=== PATIENT | female | born 1955 | race Caucasian/White ===

== ENCOUNTER 2017-07-29 20:44 | Emergency (ER) | payer MEDICARE, MEDICAID ==
[~2017-07-29 20:44] MED LIST: ISOVUE-370 76%-LOCM 1 ML ONE
[2017-07-29 21:49] LABS: #Basophils 0.1 thou/uL (0.0-0.2); #Eosinphils 0.2 thou/uL (0.0-0.7); #Lymphocytes 1.8 thou/uL (1.20-3.40); #Monocytes 0.6 thou/uL (0.11-0.59); #Neutrophils 3.1 thou/uL (1.40-6.50); %Basophils 0.9 % (0.0-1.0); %Eosinophils 2.9 % (0.0-10.0); %Lymphocytes 31.4 % (21.0-51.0); %Monocytes 10.5 % (0.0-10.0); Mean Platelet Volume 6.9 fL (7.4-10.4); Red Blood Cell (RBC) Count 3.39 mill/uL (4.20-5.40); White Blood Cell (WBC) Count 5.8 thou/uL (4.8-10.8)
[2017-07-29 22:04] LABS: ALT (SGPT) 22 U/L (8-55); AST (SGOT) 22 U/L (5-34); Alkaline Phosphatase 61 U/L (40-150); Anion Gap 12 mmol/L (10-20); BUN (Urea Nitrogen) 16 mg/dL (9.8-20.1); Bilirubin, Total 0.3 mg/dL (0.2-1.2); Calc. Creatinine Clearance 0 mL/min (70-130); Calcium 9.3 mg/dL (7.8-10.44); Carbon Dioxide 26 mmol/L (22-29); Chloride 107 mmol/L (98-107); Estimated GFR-MDRD 55; Globulin 2.6 g/dL (2.4-3.5); Lipase 417 U/L (8-78); Protein, Total 6.7 g/dL (6.0-8.3)
[2017-07-29 22:08] LABS: Bilirubin Negative (Negative); Blood, Urine Negative (Negative); Glucose, Urine (Dipstick) Negative (Negative); Ketone, Urine Negative (Negative); Nitrite Negative (Negative); Protein, Urine (Dipstick) Negative (Neg-Trace); Urobilinogen 0.2 mg/dL (0.2-1.0)
[2017-07-29 22:08] LABS: Troponin I Less than 0.010 ng/mL (< 0.028)
[2017-07-29] MEDS ORDERED: Morphine 4 MG/ML VIAL ONE (22:35)
[2017-07-29] MEDS ORDERED: Ondansetron HCl/PF 4 MG/2 ML Vial ONE (22:35)
--- NOTE | 2017-07-29 23:45 | CT ---
EXAM: ABDOMEN CT WITH CONTRAST PELVIC CT WITH CONTRAST 07/29/17 HISTORY: Epigastric pain. Abdominal pain. Four days of pain. Past medial history of pancreatitis. COMPARISON: 05/07/14. TECHNIQUE: An abdomen and pelvic CT are performed with IV contrast. Enteric contrast was not administered. Coron al reformatted images are submitted for interpretation. FINDINGS: ABDOMEN CT: Lung bases are clear. Heart size is within normal limits. Descending thoracic aorta and abdominal aor ta have a normal caliber. Atherosclerosis is noted. No periaortic fat stranding. Intra and extrahepatic portal vein is patent. Liver, spleen, pancreas, and adrenal glands have appropriate enhancement. Gallbladder is surgically absent. Symmetric enhancement of the kidneys. Bilaterally, no obstructive uropathy. Symmetric attenuation of the psoas muscles. No gastrohepatic, retrocrural or periportal lymphadenopathy. No mesenteric mass, lymphadenopathy, free air or free fluid. Limited evaluation of the alimentary canal due to the lack of oral contrast. No evidence of bowel obs truction. Ileocecal junction is normal. Fecal material in a nondistended, nondilated colon. Normal ca liber appendix. Appendicoliths in the distal appendix are noted. No inflammation. PELVIC CT: Uterus is surgically absent. No pelvic mass, lymphadenopathy, free air or free fluid. There are no lytic or blastic lesions in the osseous structures. IMPRESSION: 1. No acute abnormality in the abdomen or pelvis. 2. No CT evidence of pancreatitis. Correlate with laboratory values. POS: [facility]
[2017-07-29] MEDS ORDERED: Mag-Al 1200 mg/1200 mg/30 ML UDCUP ONE (23:56)
[2017-07-29] MEDS ORDERED: Lidocaine Viscous Sol 2% 15 ml UD Cup ONE (23:56)
--- NOTE | 2017-08-22 13:26 | EKG ---
Test Reason : Blood Pressure : / mmHG Vent. Rate : 059 BPM Atrial Rate : 059 BPM P-R Int : 146 ms QRS Dur : 098 ms QT Int : 438 ms P-R-T Axes : 035 -08 012 degrees QTc Int : 433 ms Sinus bradycardia Possible Left atrial enlargement Incomplete right bundle branch block Left ventricular hypertrophy Abnormal ECG Confirmed by SRIRAM VAZQUEZ ([id number]), editor newspaper LUTHER SPRAGUE ([id number]) on 08/22/2017 1:26:17 PM Referred By: Confirmed By:SRIRAM VAZQUEZ
== END 2017-07-30 00:31 | disposition home or self-care (01) ==
LOC: ERS 20:44
DX: R10.13 Epigastric pain (principal); E03.9 Hypothyroidism, unspecified; E78.5 Hyperlipidemia, unspecified; G47.30 Sleep apnea, unspecified; J44.9 Chronic obstructive pulmonary disease, unspecified; F41.9 Anxiety disorder, unspecified; F31.9 Bipolar disorder, unspecified; Z87.891 Personal history of nicotine dependence
CPT/HCPCS: 74177; 80053; 80178; 81003; 82553; 83690; 84484; 85025; 93005; 96374; 96375; J2270; J2405

== ENCOUNTER 2017-08-28 18:41 | Emergency (ER) | payer MEDICARE, MEDICAID ==
[2017-08-28 19:08] LABS: #Eosinphils 0.2 thou/uL (0.0-0.7); #Lymphocytes 2.3 thou/uL (1.20-3.40); #Monocytes 0.7 thou/uL (0.11-0.59); #Neutrophils 4.6 thou/uL (1.40-6.50); %Basophils 0.5 % (0.0-1.0); %Eosinophils 2.1 % (0.0-10.0); %Lymphocytes 29.5 % (21.0-51.0); %Monocytes 8.4 % (0.0-10.0); %Neutrophils 59.5 % (42.0-75.0); Mean Corpuscular HGB CONC 34.2 g/dL (32.0-36.0); Mean Corpuscular Hemoglobin 35.7 pg (27.0-31.0); Platelet Count 324 thou/uL (130-400); RBC Distribution Width 9.8 % (11.5-14.5); Red Blood Cell (RBC) Count 3.64 mill/uL (4.20-5.40); White Blood Cell (WBC) Count 7.8 thou/uL (4.8-10.8)
[2017-08-28 19:31] LABS: ALT (SGPT) 22 U/L (8-55); AST (SGOT) 19 U/L (5-34); Alkaline Phosphatase 61 U/L (40-150); Anion Gap 14 mmol/L (10-20); BUN (Urea Nitrogen) 27 mg/dL (9.8-20.1); Bilirubin, Total 0.4 mg/dL (0.2-1.2); Calc. Creatinine Clearance 0 mL/min (70-130); Carbon Dioxide 27 mmol/L (22-29); Chloride 102 mmol/L (98-107); Estimated GFR-MDRD 34; Glucose 111 mg/dL (70-105); Potassium 4.2 mmol/L (3.5-5.1); Sodium 139 mmol/L (136-145)
--- NOTE | 2017-08-28 23:04 | RAD ---
CHEST ONE VIEW 08/28/17 HISTORY: Cough. Dizziness. COMPARISON: 05/25/26. FINDINGS: Normal cardiac silhouette. Pulmonary vessels and hilum are normal. Costophrenic angles are clear. Mil d hyperinflation, without consolidation or mass. No pneumothorax or osseous abnormalities. IMPRESSION: No acute cardiopulmonary process. POS: [facility]
[2017-08-28 23:12] LABS: CKMB 3.4 ng/mL (0-6.6); Troponin I Less than 0.010 ng/mL (< 0.028)
[2017-08-28 23:17] LABS: Bilirubin Negative (Negative); Blood, Urine Negative (Negative); Clarity CLOUDY (Clear); Glucose, Urine (Dipstick) Negative (Negative); Leukocyte Small (Negative); Nitrite Negative (Negative); Protein, Urine (Dipstick) Negative (Neg-Trace); Specific Gravity, Urine 1.015 (1.002-1.036); Urobilinogen 0.2 mg/dL (0.2-1.0); pH, Urine 5.5 (5.0-9.0)
[2017-08-28 23:19] LABS: Pathc Cast-AUWi Flag 0.67 (0-2.49)
--- NOTE | 2017-08-28 23:20 | CT ---
EXAM: NONCONTRAST HEAD CT 08/28/17 HISTORY: Dizziness. Possible stroke. COMPARISON: 01/22/17. TECHNIQUE: Noncontrast head CT is performed from skull base to skull vertex. FINDINGS: No parenchymal hemorrhage. No extra-axial hematoma. No midline shift. Basilar cisterns are patent. Ag e appropriate brain volume. Cortical holldiay-white matter differentiation is preserved. The ventricles and sulci are patent and symmetric. The calvarium is intact. Adequate aeration of the mastoid air cells. There is right and left maxillary sinus disease. IMPRESSION: No acute intracranial process. POS: [facility]
[2017-08-28 23:24] LABS: Bacteria/HPF 2+ HPF (None Seen); Hyaline Casts/LPF 0-3 HYALINE CAST LPF (0-3 Hyaline); RBC/HPF 0-3 HPF (0-3); Yeast-All Forms None Seen HPF (None Seen)
[2017-08-28] MEDS ORDERED: Meclizine HCl 25 MG TAB ONE (23:53)
--- NOTE | 2017-08-30 15:26 | EKG ---
Test Reason : Blood Pressure : / mmHG Vent. Rate : 076 BPM Atrial Rate : 076 BPM P-R Int : 150 ms QRS Dur : 094 ms QT Int : 390 ms P-R-T Axes : 076 010 065 degrees QTc Int : 438 ms Normal sinus rhythm Possible Left atrial enlargement Incomplete right bundle branch block Borderline ECG Confirmed by NANCI MAYA M.D. ([id number]), business editor MEDARDO VAZQUEZ ([id number]) on 08/30/2017 3:25:55 PM Referred By: Confirmed By:NANCI MAYA M.D.
== END 2017-08-29 00:40 | disposition home or self-care (01) ==
LOC: ERS 18:41
DX: R42 Dizziness and giddiness (principal); J44.9 Chronic obstructive pulmonary disease, unspecified; E03.9 Hypothyroidism, unspecified; E78.5 Hyperlipidemia, unspecified; G47.30 Sleep apnea, unspecified; F41.9 Anxiety disorder, unspecified; F31.9 Bipolar disorder, unspecified; Z87.891 Personal history of nicotine dependence; Z79.899 Other long term (current) drug therapy; Z86.73 Personal history of transient ischemic attack (TIA), and cerebral infarction without residual deficits
CPT/HCPCS: 36415; 70450; 71045; 80053; 81003; 81015; 82553; 84484; 85025; 93005

== ENCOUNTER 2017-10-25 06:37 | Emergency (ER) | payer MEDICARE, MEDICAID | END 2017-10-25 08:08 | disposition home or self-care (01) | LOC: ERS 06:37 | DX: H10.45 Other chronic allergic conjunctivitis (principal); G89.29 Other chronic pain; M25.561 Pain in right knee; E03.9 Hypothyroidism, unspecified; E78.5 Hyperlipidemia, unspecified; G47.30 Sleep apnea, unspecified; J44.9 Chronic obstructive pulmonary disease, unspecified; F41.9 Anxiety disorder, unspecified; F31.9 Bipolar disorder, unspecified; Z87.891 Personal history of nicotine dependence; Z79.1 Long term (current) use of non-steroidal anti-inflammatories (NSAID); Z79.899 Other long term (current) drug therapy; Z86.73 Personal history of transient ischemic attack (TIA), and cerebral infarction without residual deficits | CPT/HCPCS: 99282 ==

== ENCOUNTER 2017-11-17 11:46 | Outpatient (CLI) | payer MEDICARE, MEDICAID ==
--- NOTE | 2017-11-17 15:27 | MRI ---
MRI OF THE RIGHT KNEE WITHOUT CONTRAST: Date: 11/17/17 INDICATION: Pain within the right knee for 3 months without history of injury or surgery. FINDINGS: There is an area of subchondral increased T2 and diminished T1 signal involving the patella at the le jose g of the inferior median patellar ridge without evidence of a definite full thickness cartilage def ect. There is very small central free edge radial tear involving the posterior junction of the medial meni scus on image 15 of series 7, and image 15 of series 4. The lateral meniscus appears intact. The ACL, PCL, MCL, and LCLC appear intact. The extensor mechanism appears intact. IMPRESSION: 1. Area of subchondral edema involving the lower aspect of the patella just subjacent to the articul ar cartilage. No visible articular fissure is noted within this region. This could reflect an area of subchondral contusion. 2. Central free edge radial tear involving the posterior junction of the medial meniscus. POS: [facility]
== END 2017-11-17 11:47 | disposition home or self-care (01) ==
LOC: MRI 11:46
PROVIDERS: ATTEND Orthopaedic Surgery
DX: M25.561 Pain in right knee (principal); R60.0 Localized edema; S83.241A Other tear of medial meniscus, current injury, right knee, initial encounter

== ENCOUNTER 2018-01-16 13:39 | Emergency (ER) | payer MEDICARE, MEDICAID ==
[2018-01-16 14:25] LABS: #Eosinphils 0.1 thou/uL (0.0-0.7); #Lymphocytes 1.9 thou/uL (1.20-3.40); #Monocytes 0.7 thou/uL (0.11-0.59); #Neutrophils 4.9 thou/uL (1.40-6.50); %Basophils 0.5 % (0.0-1.0); %Eosinophils 1.9 % (0.0-10.0); %Lymphocytes 25.1 % (21.0-51.0); %Monocytes 8.8 % (0.0-10.0); %Neutrophils 63.7 % (42.0-75.0); Hemoglobin 11.8 g/dL (12.0-16.0); Mean Corpuscular Hemoglobin 35.5 pg (27.0-31.0); Mean Platelet Volume 6.5 fL (7.4-10.4); Platelet Count 222 thou/uL (130-400); RBC Distribution Width 10.5 % (11.5-14.5); Red Blood Cell (RBC) Count 3.32 mill/uL (4.20-5.40); White Blood Cell (WBC) Count 7.7 thou/uL (4.8-10.8)
[2018-01-16 14:46] LABS: ALT (SGPT) 16 U/L (8-55); AST (SGOT) 17 U/L (5-34); Albumin 3.9 g/dL (3.4-4.8); Alkaline Phosphatase 62 U/L (40-150); Anion Gap 10 mmol/L (10-20); BUN (Urea Nitrogen) 23 mg/dL (9.8-20.1); Bilirubin, Total 0.4 mg/dL (0.2-1.2); Calc. Creatinine Clearance 0 mL/min (70-130); Calcium 9.5 mg/dL (7.8-10.44); Carbon Dioxide 28 mmol/L (23-31); Chloride 106 mmol/L (98-107); Estimated GFR-MDRD 54; Globulin 2.4 g/dL (2.4-3.5); Glucose 72 mg/dL (80-115); Lipase 32 U/L (8-78); Potassium 4.4 mmol/L (3.5-5.1); Protein, Total 6.3 g/dL (6.0-8.3); Sodium 140 mmol/L (136-145)
[2018-01-16 15:13] LABS: CKMB 3.6 ng/mL (0-6.6); Troponin I Less than 0.010 ng/mL (< 0.028)
[2018-01-16] MEDS ORDERED: Morphine 4 MG/ML VIAL ONE (16:38)
[2018-01-16 17:01] LABS: Bilirubin Negative (Negative); Blood, Urine Negative (Negative); Clarity CLEAR (Clear); Glucose, Urine (Dipstick) Negative (Negative); Leukocyte Negative (Negative); Nitrite Negative (Negative); Protein, Urine (Dipstick) Negative (Neg-Trace); Specific Gravity, Urine 1.013 (1.002-1.036); Urobilinogen 0.2 mg/dL (0.2-1.0)
== END 2018-01-16 17:26 | disposition home or self-care (01) ==
LOC: ERS 13:39
DX: R10.13 Epigastric pain (principal); E03.9 Hypothyroidism, unspecified; E78.5 Hyperlipidemia, unspecified; G47.30 Sleep apnea, unspecified; J44.9 Chronic obstructive pulmonary disease, unspecified; F41.9 Anxiety disorder, unspecified; F31.9 Bipolar disorder, unspecified; Z86.73 Personal history of transient ischemic attack (TIA), and cerebral infarction without residual deficits; Z87.891 Personal history of nicotine dependence; Z79.899 Other long term (current) drug therapy
CPT/HCPCS: 36415; 80053; 81003; 82150; 82553; 83690; 84484; 85025; 93005; 96361; 96374; J2270

== ENCOUNTER 2018-01-22 14:17 | Emergency (ER) | payer MEDICARE, MEDICAID ==
[2018-01-22] MEDS ORDERED: Lorazepam 2 MG/ML VIAL ONE (14:49)
--- NOTE | 2018-01-22 15:00 | CT ---
CT BRAIN WITHOUT CONTRAST: Date: 01/22/18 HISTORY: Stroke alert. Left-sided weakness and unsteady gait. COMPARISON: CT brain dated 08/28/17. FINDINGS: No acute territorial infarct or hemorrhage. No midline shift or mass effect. Ventricular size and ext ra-axial CSF spaces are normal. There is mucosal sinus thickening of the maxillary sinus, incompletely evaluated. Mastoids are clear. Calvarium is intact. IMPRESSION: No acute intracranial abnormality. No significant change. Findings discussed with Nurse Practitioner, Gloria, at 1448 hours. CODE CR. POS: [facility]
[2018-01-22 15:29] LABS: #Eosinphils 0.1 thou/uL (0.0-0.7); #Lymphocytes 1.8 thou/uL (1.20-3.40); #Monocytes 0.5 thou/uL (0.11-0.59); #Neutrophils 3.7 thou/uL (1.40-6.50); %Basophils 0.6 % (0.0-1.0); %Eosinophils 1.3 % (0.0-10.0); %Lymphocytes 29.3 % (21.0-51.0); %Monocytes 8.6 % (0.0-10.0); %Neutrophils 60.2 % (42.0-75.0); Mean Corpuscular Hemoglobin 35.3 pg (27.0-31.0); Mean Platelet Volume 6.9 fL (7.4-10.4); Platelet Count 216 thou/uL (130-400); RBC Distribution Width 10.4 % (11.5-14.5); Red Blood Cell (RBC) Count 3.39 mill/uL (4.20-5.40); White Blood Cell (WBC) Count 6.2 thou/uL (4.8-10.8)
[2018-01-22 15:30] LABS: PTT 29.6 SEC (22.9-36.1); Prothrombin Time 13.7 SEC (12.0-14.7)
--- NOTE | 2018-01-22 15:34 | CT ---
CT ANGIOGRAM HEAD CT ANGIOGRAM NECK: HISTORY: Stroke alert. Of note, the axial images were only available to review for the radiologist at 3:17 p. m. TECHNIQUE: CT angiogram of the head and neck prior to the intravenous administration of contrast. Three-D rende ring provided. COMPARISON: 2015. FINDINGS: The lung apices are clear. No apical pneumothorax. Mild degenerative changes of the cervical spine. No acute fracture. Thyroid is atrophic. No adenopathy. Orbits are unremarkable. Globes are normal. No oropharyngeal mass is appreciated. VESSELS: Aortic arch is unremarkable. RIGHT SIDE: Vertebral artery is patent. No narrowing. Vertebral arteries are codominant. Right common carotid artery and internal carotid artery are both patent. There is mild motion artifa ct from the carotid bulb. LEFT SIDE: Vertebral artery is patent. Common carotid artery and internal carotid artery are both patent. No n arrowing. Evaluation for narrowing is performed using NASCET criteria. Basilar artery is patent. Anterior and posterior circulation is patent. No narrowing thrombosis nor aneurysm formation. IMPRESSION: 1. No acute intracranial abnormalities. No focal area of vascular narrowing, thrombosis, nor aneury sm formation. 2. Chronic right maxillary sinusitis with small right maxillary sinus with osteitis. Notified Gloria, nurse practitioner, at 3:20 p.m. CODE CR POS: [facility]
[2018-01-22 15:44] LABS: ALT (SGPT) 18 U/L (8-55); AST (SGOT) 20 U/L (5-34); Albumin 3.8 g/dL (3.4-4.8); Alkaline Phosphatase 52 U/L (40-150); Anion Gap 14 mmol/L (10-20); BUN (Urea Nitrogen) 22 mg/dL (9.8-20.1); Bilirubin, Total 0.6 mg/dL (0.2-1.2); CK (CPK) 151 U/L (29-168); Calc. Creatinine Clearance 0 mL/min (70-130); Calcium 9.3 mg/dL (7.8-10.44); Carbon Dioxide 20 mmol/L (23-31); Chloride 105 mmol/L (98-107); Estimated GFR-MDRD 36; Globulin 2.2 g/dL (2.4-3.5); Glucose 72 mg/dL (80-115); Potassium 4.2 mmol/L (3.5-5.1); Sodium 135 mmol/L (136-145)
[2018-01-22 15:48] LABS: CKMB 3.5 ng/mL (0-6.6); Troponin I Less than 0.010 ng/mL (< 0.028)
--- NOTE | 2018-01-23 11:33 | EKG ---
Test Reason : Blood Pressure : / mmHG Vent. Rate : 082 BPM Atrial Rate : 082 BPM P-R Int : 146 ms QRS Dur : 080 ms QT Int : 408 ms P-R-T Axes : 091 020 051 degrees QTc Int : 476 ms Normal sinus rhythm Possible Left atrial enlargement Nonspecific ST and T wave abnormality Abnormal ECG Poor baseline Confirmed by LESVIA KENNEDY M.D. ([id number]), desk editor LUTHER SPRAGUE ([id number]) on 01/23/2018 11:33:20 AM Referred By: Confirmed By:LESVIA KENNEDY M.D.
== END 2018-01-22 17:08 | disposition home or self-care (01) ==
LOC: ERS 14:17
DX: G24.9 Dystonia, unspecified (principal); E03.9 Hypothyroidism, unspecified; E78.5 Hyperlipidemia, unspecified; J44.9 Chronic obstructive pulmonary disease, unspecified; F31.9 Bipolar disorder, unspecified; Z86.73 Personal history of transient ischemic attack (TIA), and cerebral infarction without residual deficits; Z87.891 Personal history of nicotine dependence; Z79.899 Other long term (current) drug therapy
CPT/HCPCS: 36415; 36416; 70450; 70496; 70498; 80053; 82553; 84484; 85025; 85610; 85730; 93005; 96374; J2060

== ENCOUNTER 2018-02-16 11:58 | Observation (INO) | payer MEDICARE, MEDICAID ==
[2018-02-16] MEDS ORDERED: Nitroglycerin 0.4 MG TAB (25 Tab Bottle) ONE (12:28)
[2018-02-16 12:39] LABS: #Eosinphils 0.1 thou/uL (0.0-0.7); #Lymphocytes 1.7 thou/uL (1.20-3.40); #Monocytes 0.6 thou/uL (0.11-0.59); #Neutrophils 4.7 thou/uL (1.40-6.50); %Basophils 0.5 % (0.0-1.0); %Lymphocytes 23.6 % (21.0-51.0); %Monocytes 8.6 % (0.0-10.0); %Neutrophils 65.3 % (42.0-75.0); Hemoglobin 12.1 g/dL (12.0-16.0); Mean Corpuscular HGB CONC 34.3 g/dL (32.0-36.0); Platelet Count 237 thou/uL (130-400); RBC Distribution Width 10.5 % (11.5-14.5); Red Blood Cell (RBC) Count 3.37 mill/uL (4.20-5.40); White Blood Cell (WBC) Count 7.3 thou/uL (4.8-10.8)
[2018-02-16 13:00] LABS: CKMB 2.6 ng/mL (0-6.6); Troponin I Less than 0.010 ng/mL (< 0.028)
[2018-02-16 13:07] LABS: ALT (SGPT) 16 U/L (8-55); AST (SGOT) 27 U/L (5-34); Alkaline Phosphatase 62 U/L (40-150); Anion Gap 12 mmol/L (10-20); BUN (Urea Nitrogen) 21 mg/dL (9.8-20.1); Bilirubin, Total 0.4 mg/dL (0.2-1.2); CK (CPK) 95 U/L (29-168); Calc. Creatinine Clearance 0 mL/min (70-130); Calcium 9.6 mg/dL (7.8-10.44); Carbon Dioxide 25 mmol/L (23-31); Chloride 108 mmol/L (98-107); Estimated GFR-MDRD 52; Glucose 84 mg/dL (80-115); Lipase 27 U/L (8-78); Potassium 4.8 mmol/L (3.5-5.1); Sodium 140 mmol/L (136-145)
--- NOTE | 2018-02-16 13:17 | RAD ---
CHEST ONE VIEW PORTABLE: History: 62-year-old female with history of chest pain. Comparison: 08-28-17 FINDINGS: Post underlying sternotomy. Bilateral shoulder post-surgical changes. No confluent pneumonia, overt e efren, or pleural effusion. IMPRESSION: No acute intrathoracic disease. POS: [facility]
--- NOTE | 2018-02-16 13:38 | PDOC.FPRHP ---
- History of Present Illness Chief Complaint: Chest pain History of Present Illness: 62 yo F w/hx of 1v CAD here with complaint of chest pain associated with doing yard work yesterday afternoon. She describes the pain as sharp and on the left side of her chest. It radiates to the left side of her neck. It was relieved with rest and with nitro. Associated symptoms include nausea. She again had a similar chest pain this morning and decided to seek care at that time. Pt had a normal stress test in Aug of this year with Dr Costello ED Course: In the ED she had no concerning EKG finding. - Allergies/Adverse Reactions Allergies Allergy/AdvReac Type Severity Reaction Status Date / Time trazodone HCl [From Desyrel] Allergy Severe Hives Verified 02/09/17 22:43 amitriptyline [From Elavil] Allergy Verified 02/09/17 22:43 - Home Medications Medication Instructions Recorded Confirmed Type Multivit-Min/FA/Lycopene/Lut 1 tab PO DAILY 12/19/13 02/16/18 History [Centrum Silver] Pantoprazole Sodium [Protonix] 20 mg PO DAILY 04/23/16 02/16/18 History Ranolazine [Ranexa] 500 mg PO BID #0 tab 05/26/16 02/16/18 Rx Aspirin-Dipyridamole [Aggrenox] 1 cap PO BID cap 01/24/17 02/16/18 Rx BuPROPion XL [Wellbutrin XL] 300 mg PO DAILY tab 01/24/17 02/16/18 Rx Carvedilol [Coreg] 3.125 mg PO BID-WM tab 01/24/17 02/16/18 Rx Escitalopram Oxalate [Lexapro] 20 mg PO DAILY tab 01/24/17 02/16/18 Rx clonazePAM [Klonopin] 0.5 mg PO BIDPRN PRN #0 tab 01/24/17 02/16/18 Rx Atorvastatin Calcium [Lipitor] 80 mg PO HS 02/09/17 02/16/18 History Levothyroxine Sodium [Synthroid] 100 mcg PO 0600 #30 tab 02/10/17 02/16/18 Rx Melatonin 10 mg PO HS 02/16/18 02/16/18 History Nitroglycerin [Nitrostat] 0.4 mg PO Q5MIN PRN tab 02/17/18 Rx - History PMHx: Hypothyroid BPD Polypharmacy Hx of CVA CAD GERD HLD HTN PSHx: Hysterectomy 4th L 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 denies: palpitation, edema Gastrointestinal: denies: nausea, vomiting, diarrhea, constipation, abdominal pain Genitourinary: denies: incontinence, dysuria Skin: denies: rashes, lesions Musculoskeletal: denies: pain, tenderness Neurological: denies: numbness, syncope Psychological: denies: anxiety, depression - Vital signs BP: 83/55 HR: 66 RR: 15 Tmax: 98.4 Pox: 94% on RA Wt: 80 kg - Physical Exam Constitutional: NAD, awake, alert and oriented HEENT: normocephalic and atraumatic, grossly normal vision, grossly normal hearing Neck: FROM, trachea midline Chest: no-tender to palpation, no lesions Heart: RRR, normal S1/S2, no murmurs/rubs/gallops Lungs: CTAB, no respiratory distress, no wheezing Abdomen: soft, non-tender, bowel sounds present, no masses/distention Musculoskeletal: normal structure, normal tone Neurological: no focal deficit, CN II-XII intact Skin: no rash/lesions, good turgor Heme/Lymphatic: no unusual bruising or bleeding, no purpura Psychiatric: normal mood and affect, good judgment and insight FMR H&P: Results - Labs Result Diagrams: 02/16/18 12:24 02/16/18 12:24 Lab results: WBC 7.3 thou/uL (4.8-10.8) 02/16/18 12:24 Hgb 12.1 g/dL (12.0-16.0) 02/16/18 12:24 Hct 35.3 % (36.0-47.0) L 02/16/18 12:24 MCV 105.0 fL (78.0-98.0) H 02/16/18 12:24 Plt Count 237 thou/uL (130-400) 02/16/18 12:24 Neutrophils % 65.3 % (42.0-75.0) 02/16/18 12:24 Sodium 140 mmol/L (136-145) 02/16/18 12:24 Potassium 4.8 mmol/L (3.5-5.1) 02/16/18 12:24 Chloride 108 mmol/L (98-107) H 02/16/18 12:24 Carbon Dioxide 25 mmol/L (23-31) 02/16/18 12:24 BUN 21 mg/dL (9.8-20.1) H 02/16/18 12:24 Creatinine 1.08 mg/dL (0.6-1.1) 02/16/18 12:24 Glucose 84 mg/dL (80-115) 02/16/18 12:24 Calcium 9.6 mg/dL (7.8-10.44) 02/16/18 12:24 Total Bilirubin 0.4 mg/dL (0.2-1.2) 02/16/18 12:24 AST 27 U/L (5-34) 02/16/18 12:24 ALT 16 U/L (8-55) 02/16/18 12:24 Alkaline Phosphatase 62 U/L (40-150) 02/16/18 12:24 Creatine Kinase 95 U/L (29-168) 02/16/18 12:24 CK-MB (CK-2) 2.6 ng/mL (0-6.6) 02/16/18 12:24 B-Natriuretic Peptide 22.1 pg/mL (0-100) 02/16/18 12:24 Serum Total Protein 7.0 g/dL (6.0-8.3) 02/16/18 12:24 Albumin 4.0 g/dL (3.4-4.8) 02/16/18 12:24 Lipase 27 U/L (8-78) 02/16/18 12:24 - EKG Interpretation EKG: NSR, rate 66. possible L atrial enlargement. Possible RBBB. No ST changes or T wave inversions FMR H&P: A/P - Problem List (1) Angina concurrent with and due to arteriosclerosis of coronary artery Status: Acute Priority: High Code(s): I25.119 - ATHSCL HEART DISEASE OF [place] COR ART W UNSP ANG PCTRS (2) Bipolar disorder Status: Chronic Priority: Low Code(s): F31.9 - BIPOLAR DISORDER, UNSPECIFIED (3) Coronary artery disease Status: Chronic Priority: Medium Code(s): I25.10 - ATHSCL HEART DISEASE OF [place] CORONARY ARTERY W/O ANG PCTRS Qualifiers: Coronary Disease-Associated Artery/Lesion type: [place] artery [place] vs. transplanted heart: [place] heart Associated angina: without angina Qualified Code(s): I25.10 - Atherosclerotic heart disease of [place] coronary artery without angina pectoris (4) GERD (gastroesophageal reflux disease) Status: Chronic Priority: Low Code(s): K21.9 - GASTRO-ESOPHAGEAL REFLUX DISEASE WITHOUT ESOPHAGITIS (5) Hyperlipidemia Status: Chronic Priority: Medium Code(s): E78.5 - HYPERLIPIDEMIA, UNSPECIFIED (6) Hypertension Status: Chronic Priority: Medium Code(s): I10 - ESSENTIAL (PRIMARY) HYPERTENSION Qualifiers: Hypertension type: essential hypertension Qualified Code(s): I10 - Essential (primary) hypertension (7) Hypothyroid Status: Chronic Priority: Low Code(s): E03.9 - HYPOTHYROIDISM, UNSPECIFIED - Plan Anginal Chest pain, suspected - Work to r/o ACS by trending trops and monitor on tele obs - first set of trops are negative and no acute changes in EKG. Pt has normal stress in Aug and negative cath in 2014 - Will discuss case with Dr Costello for further clarification as to her outpatient plans - risk stratify with A1c, lipids, - continue home statin and ranexa HTN - continue home meds HLD - contiue statin Hypothyroid - continue levothyroxine BPD - continue home meds GERD - continue home meds PPx - lovenox Diet - NPO at midnight Code full Dispo stable. Length of stay less than 48 hours. FMR H&P: Upper Level - Pertinent history 62 yo CF pmhx HTN, HLD, bipolar d/o, hypothyroid, and GERD p/w CP. States that, around 1330 yesterday (02/15), she was cutting branches on her property when she suddenly had sharp left sided CP that radiated to her neck. She went back to the house, took a nitro, and rested, with subsequent resolution of the pain. Then, this morning as she was washing dishes, she again had about 3 episodes of sharp chest pain with numbness and tingling radiating into her left arm. Episodes lasted 2-3 minutes each and were accompanied by dyspnea, diaphoresis, and mild nausea. She called Dr. Costello office and was told to go into the ER. Patient states that she had a normal stress test about 5 months ago and a clear cath several years ago. - Pertinent findings PE: Gen: AAOx3, NAD Neck: no bruit appreciated Chest: no TTP CV: RRR, no m/g/r Lungs: CTAB Neuro: no gross focal deficits Ext: no c/c/e Skin: no rashes or obvious lesions - Plan Date/Time: 02/16/181337 I, Preet Davila MD, have evaluated this patient and agree with findings/plan as outlined by senior internal auditor resident. Pertinent changes/additions are listed here. 62 yo F with: 1) Possible stable angina, r/o ACS: place in observation to telemetry. Will call Dr. Costello to see if she is ok with medical r/o only given the fact that she had a negative stress test <6 months ago v. keeping overnight for possible heart cath tmrw. No acute EKG changes. Continue to trend trops. HEART score=3. Will further risk stratify with A1c, FLP. S/p ASA in ER. Cont. Ranexa, statin. 2) HTN: cont. home medications with exception of beta chepe 3) HLD: cont. statin 4) Hypothyroidism: cont. LTX 5) Bipolar d/o: cont. home medications 6) GERD: cont. PPI Attending Addendum - Attending Addendum Date/Time: 02/16/18 1702 I personally evaluated the patient and discussed the management with Dr. Davila and Dr. Landin I agree with the History, Examination, Assessment and Plan documented above with any addition or exceptions noted below. 62 yo female with hx of angina presents with chest pain. Patient presents with typical chest pain. 1st CE negative. Heart score 3. No EKG changes. Recent negative stress of this year. 50% stenosis on cath 3 years ago. Will trend CE x3. Discuss in AM with cards if okay with outpatient follow up vs inpatient evaluation. Ryne
[2018-02-16] MEDS ORDERED: Acetaminophen 325 MG TAB PO PRN (14:39)
[2018-02-16] MEDS ORDERED: Nitroglycerin 0.4 MG TAB (25 Tab Bottle) PO PRN (14:39)
[2018-02-16 15:38] VITALS: BMI 29.7
[2018-02-16 16:58] LABS: Magnesium 1.5 mg/dL (1.6-2.6); Phosphorus 2.8 mg/dL (2.3-4.7)
[2018-02-16 17:02] LABS: Troponin I Less than 0.010 ng/mL (< 0.028)
[2018-02-16] MEDS ORDERED: clonazePAM 0.5 MG TAB PO PRN (17:10)
[2018-02-16] MEDS ORDERED: Magnesium Oxide 400 MG TAB PO SCH (17:15)
[2018-02-16 18:48] LABS: Troponin I Less than 0.010 ng/mL (< 0.028)
[2018-02-16] MEDS: Aggrenox 200-25mg CAP PO SCH (20:18)
[2018-02-16] MEDS ORDERED: Atorvastatin Calcium 40 MG TAB PO SCH (21:00)
[2018-02-16] MEDS ORDERED: Melatonin 3 MG TAB PO SCH (21:00)
[2018-02-17 05:27] LABS: Hemoglobin A1c 4.8 % (4.0-6.0)
[2018-02-17 05:55] LABS: Cardiac Risk 2.6 (Less than 4.5)
[2018-02-17] MEDS ORDERED: Levothyroxine Sodium 100 MCG TAB PO SCH (06:00)
--- NOTE | 2018-02-17 06:42 | PDOC.FM ---
- Subjective Subjective: Mimi Manzanares seen at bedside this morning. She states that she is feeling better and not having any chest pain. She denies any complaints and there were no acute events overnight. - Objective MAR Reviewed: Yes Vital Signs & Weight: Vital Signs (12 hours) Temp Pulse Resp BP Pulse Ox 02/17/18 04:40 98.3 F 56 L 18 88/53 L 96 02/16/18 23:01 98.4 F 59 L 20 110/57 L 98 02/16/18 20:15 98.6 F 71 20 02/16/18 19:39 98.6 F 71 20 96/51 L 97 I&O: 02/15/18 02/16/18 02/17/18 06:59 06:59 06:59 Intake Total 1070 Output Total 2200 Balance -1130 Result Diagrams: 02/16/18 12:24 02/16/18 12:24 <Jeffrey Landin - Last Filed: 02/17/18 08:17> - Objective Vital Signs & Weight: Vital Signs (12 hours) Temp Pulse Resp BP Pulse Ox 02/17/18 08:00 97.9 F 66 20 02/17/18 07:26 97.9 F 66 20 113/59 L 95 02/17/18 04:40 98.3 F 56 L 18 88/53 L 96 I&O: 02/16/18 02/17/18 02/18/18 06:59 06:59 06:59 Intake Total 1070 Output Total 2200 Balance -1130 Result Diagrams: 02/16/18 12:24 02/16/18 12:24 <Huseyin Capps - Last Filed: 02/17/18 11:22> Phys Exam - Physical Examination Constitutional: NAD HEENT: moist MMs, sclera anicteric Neck: no JVD, supple, full ROM Respiratory: no wheezing, no rales, no rhonchi, clear to auscultation bilateral Cardiovascular: RRR, no significant murmur, no rub Gastrointestinal: soft, non-tender, no distention Musculoskeletal: no edema, pulses present Neurological: non-focal, normal sensation, moves all 4 limbs Psychiatric: normal affect, A&O x 3 Skin: no rash <Jeffrey Landin - Last Filed: 02/17/18 08:17> Dx/Plan (1) Angina concurrent with and due to arteriosclerosis of coronary artery Code(s): I25.119 - ATHSCL HEART DISEASE OF [place] COR ART W UNSP ANG PCTRS Status: Acute (2) Bipolar disorder Code(s): F31.9 - BIPOLAR DISORDER, UNSPECIFIED Status: Chronic (3) Coronary artery disease Code(s): I25.10 - ATHSCL HEART DISEASE OF [place] CORONARY ARTERY W/O ANG PCTRS Status: Chronic QualifierTitle: Coronary Disease-Associated Artery/Lesion type: [place] artery [place] vs. transplanted heart: [place] heart Associated angina: without angina Qualified Code(s): I25.10 - Atherosclerotic heart disease of [place] coronary artery without angina pectoris (4) GERD (gastroesophageal reflux disease) Code(s): K21.9 - GASTRO-ESOPHAGEAL REFLUX DISEASE WITHOUT ESOPHAGITIS Status: Chronic (5) Hyperlipidemia Code(s): E78.5 - HYPERLIPIDEMIA, UNSPECIFIED Status: Chronic (6) Hypertension Code(s): I10 - ESSENTIAL (PRIMARY) HYPERTENSION Status: Chronic QualifierTitle: Hypertension type: essential hypertension Qualified Code( s): I10 - Essential (primary) hypertension (7) Hypothyroid Code(s): E03.9 - HYPOTHYROIDISM, UNSPECIFIED Status: Chronic (8) Tobacco abuse Code(s): Z72.0 - TOBACCO USE Status: Resolved - Plan Plan: 1) Anginal Chest pain, suspected - Work to r/o ACS by trending trops and monitor on tele obs - Trops negative X3 and no acute changes in EKG. Pt has normal stress in Aug and negative cath in 2014 - Will consider discussing case with Dr Costello for further clarification as to her outpatient plans - risk stratify with A1c, lipids - continue home statin and ranexa - otherwise, d/c home 2) HTN - continue home meds 3) HLD - contiue statin 4) Hypothyroid - continue levothyroxine 5) BPD - continue home meds 6) GERD - continue home meds <Jeffrey Landin - Last Filed: 02/17/18 08:17> Attending Addendum - Attending Addendum Date/Time: 02/17/18 1120 I personally evaluated the patient and discussed the management with Dr. Landin I agree with the History, Examination, Assessment and Plan documented above with any addition or exceptions noted below.Patient stable ruled out for acute ischemia known chronic angina with exacerbation with recent exertional activity. Patient stable to dismiss f/u with Dr Costello([facility] ) as outpatient. <Huseyin Capps - Last Filed: 02/17/18 11:22>
[2018-02-17] MEDS ORDERED: Carvedilol 3.125 MG TAB PO SCH (08:00)
[2018-02-17 08:03] VITALS: BP 113/59; TEMP 97.9
[2018-02-17] MEDS ORDERED: Bupropion 150 MG XL TAB PO SCH (09:00)
[2018-02-17] MEDS ORDERED: Magnesium Oxide 400 MG TAB PO SCH (09:00)
[2018-02-17] MEDS ORDERED: Multivitamin W/ Minerals 1 TAB PO SCH (09:00)
[2018-02-17] MEDS ORDERED: Enoxaparin Sodium 40 MG/0.4 ML SYRINGE SC SCH (09:00)
[2018-02-17] MEDS ORDERED: Escitalopram Oxalate 20 mg Tablet PO SCH (09:00)
[2018-02-17] MEDS: Aggrenox 200-25mg CAP PO SCH (09:54)
--- NOTE | 2018-02-17 12:33 | DIS-2 ---
DATE OF ADMISSION: 02/16/2018 DATE OF DISCHARGE: 02/17/2018 ADMITTING ATTENDING: Dr. Pili Wagner. DISCHARGE ATTENDING: Dr. Huseyin Capps. RESIDENT: Jeffrey Landin M.D. CONSULTS: None. PROCEDURES: Chest x-ray on 02/16/2018; impression, no acute intrathoracic disease. PRIMARY DIAGNOSIS: Stable angina. SECONDARY DIAGNOSES: 1. Coronary artery disease. 2. Chronic hypotension. 3. Hyperlipidemia. 4. Gastroesophageal reflux disease. 5. Hypothyroidism. DISCHARGE MEDICATIONS: Resume all home medications includin. Multivitamin 1 tab p.o. daily. 2. Pantoprazole sodium 20 mg p.o. daily. 3. Ranolazine 500 mg p.o. b.i.d. 4. Aggrenox 125/200 mg 1 cap p.o. b.i.d. 5. Bupropion XL 300 mg p.o. daily. 6. Carvedilol 3.125 mg p.o. b.i.d. with meals. 7. Escitalopram oxalate 20 mg p.o. daily. 8. Clonazepam 0.5 mg p.o. b.i.d. p.r.n. 9. Lipitor 80 mg p.o. at bedtime. 10. Synthroid 100 mcg p.o. daily. 11. Melatonin 10 mg p.o. at bedtime. New home medications, nitroglycerin 0.4 mg p.o. q.5 minute p.r.n. HISTORY OF PRESENT ILLNESS/HOSPITAL COURSE: Mimi Manzanares is a 62-year-old female with a history of 1-vessel coronary artery disease who presented to the ED with complaint of chest pain associated with yardwork yesterday afternoon. Patient describes pain as sharp and on the left side of her chest wit h radiation to the left side of her neck. It was relieved with rest and with nitro. Associated symp toms included nausea. She had similar episode of chest pain again this morning and decided to come t o the ED. The patient had a normal stress in August of this year with Dr. Costello and had a cardiac ca theterization [address] Costello that showed 1 vessel CAD with approximately 50% stenosis. EK G showed normal sinus rhythm, possible left atrial enlargement, possible right bundle branch block. No ST changes or T-wave inversions. Initial troponin was negative. Other labs were unremarkable. T he patient was admitted for angina and patient's cardiac enzymes were trended and they were negative x3. The patient never had active chest pain during her admission. She did well overnight. She expe rienced no acute events. Dr. Costello was notified that patient was in the hospital on the morning of . I discussed the case with Dr. Costello and she recommended the patient be discharged and follo w up in her clinic in the next 2 weeks. Otherwise, continue current medical management. After clear ance from Dr. Costello, patient was cleared by the medical team and patient was cleared for discharge. T he patient agreed with plan and stated that she would call Dr. Costello' office to set up an appointment. DISPOSITION: Stable. The patient should do well if she follows up with Dr. Costello for evaluation of h er symptoms. DISCHARGE INSTRUCTIONS: 1. Location: Home. 2. Diet: Heart healthy. 3. Activity: As tolerated. 4. Follow up with Dr. Costello in 2 weeks and primary provider within 1-2 weeks.
--- NOTE | 2018-02-21 12:37 | EKG ---
Test Reason : CP Blood Pressure : / mmHG Vent. Rate : 066 BPM Atrial Rate : 066 BPM P-R Int : 150 ms QRS Dur : 092 ms QT Int : 400 ms P-R-T Axes : 053 001 016 degrees QTc Int : 419 ms Normal sinus rhythm Possible Left atrial enlargement Incomplete right bundle branch block Borderline ECG Confirmed by NANCI MAYA M.D. ([id number]), video editor MEDARDO VAZQUEZ ([id number]) on 02/21/2018 12:36:50 PM Referred By: Confirmed By:NANCI MAYA M.D.
== END 2018-02-17 13:29 | disposition home or self-care (01) ==
LOC: ERS 11:58 → 2SW 15:29
PROVIDERS: ADMIT Family Medicine; ATTEND Family Medicine
DX: I25.118 Atherosclerotic heart disease of native coronary artery with other forms of angina pectoris (principal); E03.9 Hypothyroidism, unspecified; K21.9 Gastro-esophageal reflux disease without esophagitis; E78.5 Hyperlipidemia, unspecified; I10 Essential (primary) hypertension; F17.210 Nicotine dependence, cigarettes, uncomplicated; F31.9 Bipolar disorder, unspecified; Z79.82 Long term (current) use of aspirin; Z79.01 Long term (current) use of anticoagulants; Z79.899 Other long term (current) drug therapy; Z88.8 Allergy status to other drugs, medicaments and biological substances
CPT/HCPCS: 71045; 80053; 80061; 82550; 82553; 83036; 83690; 83735; 83880; 84100; 84484 ×2; 85025; 93005; 96360; 97139; 99285; G0378; 36415

== ENCOUNTER 2018-05-26 22:32 | Emergency (ER) | payer MEDICARE, MEDICAID ==
[2018-05-26 23:47] LABS: Hemoglobin 12.4 g/dL (12.0-16.0); Mean Corpuscular HGB CONC 33.4 g/dL (32.0-36.0); Mean Platelet Volume 6.7 fL (7.4-10.4); Platelet Count 232 thou/uL (130-400); RBC Distribution Width 10.2 % (11.5-14.5); Red Blood Cell (RBC) Count 3.55 mill/uL (4.20-5.40); White Blood Cell (WBC) Count 5.5 thou/uL (4.8-10.8)
[2018-05-26] MEDS ORDERED: Metoclopramide HCl 10 MG/2 ML VIAL ONE (23:56)
[2018-05-26 23:59] LABS: #Eosinphils 0.2 thou/uL (0.0-0.7); #Lymphocytes 1.8 thou/uL (1.20-3.40); #Monocytes 0.5 thou/uL (0.11-0.59); %Basophils 0.8 % (0.0-1.0); %Eosinophils 2.8 % (0.0-10.0); %Lymphocytes 31.9 % (21.0-51.0); %Monocytes 9.2 % (0.0-10.0); %Neutrophils 55.3 % (42.0-75.0); ALT (SGPT) 16 U/L (8-55); AST (SGOT) 24 U/L (5-34); Albumin 3.8 g/dL (3.4-4.8); Alkaline Phosphatase 49 U/L (40-150); Anion Gap 14 mmol/L (10-20); BUN (Urea Nitrogen) 15 mg/dL (9.8-20.1); Bilirubin, Total 0.4 mg/dL (0.2-1.2); Calc. Creatinine Clearance 0 mL/min (70-130); Calcium 9.3 mg/dL (7.8-10.44); Carbon Dioxide 21 mmol/L (23-31); Chloride 109 mmol/L (98-107); Estimated GFR-MDRD 48; Globulin 2.6 g/dL (2.4-3.5); Glucose 80 mg/dL (80-115); Lipase 20 U/L (8-78); MDiff Complete? YES; Macrocytosis SLIGHT = 6-15 cells (100X) (0-5/hpf); Ovalocytes SLIGHT = 2-5 cells (100X) (0-1/hpf); Potassium 4.3 mmol/L (3.5-5.1); Protein, Total 6.4 g/dL (6.0-8.3); Sodium 140 mmol/L (136-145)
--- NOTE | 2018-05-27 07:33 | CT ---
ABDOMEN AND PELVIS CT WITH CONTRAST: Date: 05/26/18 INDICATION: Abdominal pain. Reference made to 07/29/17 CT exam. FINDINGS: Prior cholecystectomy. No acute abnormality of the solid abdominal organs. The bowel is incompletely assessed without enteric contrast. There is no free air or significant ascites. There is reticulonodu lar opacification incidentally visualized at the lung bases, more notable on the right. There is no a cute osseous pathology. The unopacified appendix is not pathologically dilated. There is a fat-contai cici periumbilical hernia. IMPRESSION: No definite evidence of an acute process. The bowel is limited without enteric contrast administratio n. POS: [facility]
== END 2018-05-27 01:42 | disposition home or self-care (01) ==
LOC: ERS 22:32
DX: R10.31 Right lower quadrant pain (principal); E78.5 Hyperlipidemia, unspecified; E03.9 Hypothyroidism, unspecified; J44.9 Chronic obstructive pulmonary disease, unspecified; Z87.891 Personal history of nicotine dependence; Z79.899 Other long term (current) drug therapy
CPT/HCPCS: 74177; 80053; 83690; 85025; 93005; 96365; 96366; J2765

== ENCOUNTER 2018-06-28 10:39 | Observation (INO) | payer MEDICARE, MEDICAID ==
[2018-06-28 11:29] LABS: #Eosinphils 0.2 thou/uL (0.0-0.7); #Lymphocytes 1.4 thou/uL (1.20-3.40); #Monocytes 0.6 thou/uL (0.11-0.59); #Neutrophils 4.1 thou/uL (1.40-6.50); %Basophils 0.5 % (0.0-1.0); %Eosinophils 2.9 % (0.0-10.0); %Lymphocytes 22.3 % (21.0-51.0); %Monocytes 8.9 % (0.0-10.0); %Neutrophils 65.5 % (42.0-75.0); Hemoglobin 12.6 g/dL (12.0-16.0); Mean Corpuscular HGB CONC 32.6 g/dL (32.0-36.0); Mean Corpuscular Hemoglobin 35.1 pg (27.0-31.0); Mean Platelet Volume 6.7 fL (7.4-10.4); Platelet Count 271 thou/uL (130-400); RBC Distribution Width 10.7 % (11.5-14.5); White Blood Cell (WBC) Count 6.2 thou/uL (4.8-10.8)
[2018-06-28 12:00] LABS: ALT (SGPT) 17 U/L (8-55); AST (SGOT) 31 U/L (5-34); Albumin 3.9 g/dL (3.4-4.8); Alkaline Phosphatase 49 U/L (40-150); Anion Gap 16 mmol/L (10-20); BUN (Urea Nitrogen) 20 mg/dL (9.8-20.1); Bilirubin, Total 0.5 mg/dL (0.2-1.2); Calc. Creatinine Clearance 0 mL/min (70-130); Carbon Dioxide 18 mmol/L (23-31); Chloride 111 mmol/L (98-107); Estimated GFR-MDRD 43; Globulin 2.7 g/dL (2.4-3.5); Glucose 133 mg/dL (80-115); Potassium 4.9 mmol/L (3.5-5.1); Protein, Total 6.6 g/dL (6.0-8.3); Sodium 140 mmol/L (136-145)
[2018-06-28 12:15] LABS: Bilirubin Small (Negative); Blood, Urine Negative (Negative); Clarity CLOUDY (Clear); Glucose, Urine (Dipstick) Negative (Negative); Leukocyte Trace (Negative); Nitrite Negative (Negative); Protein, Urine (Dipstick) Negative (Neg-Trace); Specific Gravity, Urine 1.021 (1.002-1.036); Urobilinogen 0.2 mg/dL (0.2-1.0); pH, Urine 5.5 (5.0-9.0)
[2018-06-28 12:21] LABS: Bacteria/HPF Rare-Few HPF (None Seen); Hyaline Casts/LPF 7-10 HYALINE CAST LPF (0-3 Hyaline); Pathc Cast-AUWi Flag 1.88 (0-2.49); RBC/HPF 0-3 HPF (0-3)
[2018-06-28 12:25] LABS: Amphetamine Not Detected (NotDetected); Barbiturates Screen Not Detected (NotDetected); Benzodiazepine Screen Not Detected (NotDetected); Cocaine Metabolite Screen Not Detected (NotDetected); Medtox Control Line Valid? VALID (VALID); Medtox Reader # READER 1; Methadone Not Detected (NotDetected); Methamphetamine Not Detected (NotDetected); Opiate Screen Not Detected (NotDetected); Oxycodone Screen Not Detected (NotDetected); Phencyclidine (PCP) Not Detected (NotDetected); THC/Cannabinoid Screen Not Detected (NotDetected); Tricyclic Screen Not Detected (NotDetected)
--- NOTE | 2018-06-28 13:22 | CT ---
CT BRAIN WITHOUT CONTRAST: HISTORY: Altered mental status, change in speech. FINDINGS: Comparison is made with the exam of 01/22/2018. No evidence of acute infarct, hemorrhage, midline navarro ft, or abnormal extraaxial fluid collections is seen. The ventricular size is normal and the basilar cisterns are patent. The bony calvarium is intact. The visualized paranasal sinuses and mastoid ai r cells are well aerated. IMPRESSION: No CT evidence of acute intracranial process. POS: [facility]
[2018-06-28] MEDS ORDERED: Iopamidol 370 76% 100 ML VIAL ONE (14:26)
--- NOTE | 2018-06-28 15:02 | CT ---
CT ANGIO OF HEAD PERFORMED WITH INTRAVENOUS CONTRAST ENHANCEMENT WITH 3D RECONSTRUCTIONS: COMPARISON: A 01/22/CT angio of the head and neck. That examination showed unremarkable carotid bifurcations. HISTORY: Speech change approximately 10 minutes prior to admission with weakness in both legs. FINDINGS: Visualized brain parenchyma is unremarkable. Technically, a satisfactory examination was obtained. There is some atherosclerotic change in the cavernous portions of both internal carotid arteries. Th e anterior and middle cerebral arteries and their branches appear unremarkable. I do not see any sig ns of any intraluminal thrombus. No areas of narrowing. The vertebrobasilar system appears unremarkable. Posterior cerebral arteries appear normal. Opacification of a hypoplastic right maxillary sinus is incidentally noted. IMPRESSION: Unremarkable CT angio of head. POS: [facility]
[2018-06-28] MEDS ORDERED: Ondansetron ODT 4 MG TAB SL PRN (16:12)
[2018-06-28] MEDS ORDERED: Sodium Chloride 0.9% 1,000 ML IV SCH (16:12)
[2018-06-28] MEDS ORDERED: HYDROcodone/Acetaminophen 5/325 mg Tablet PO PRN ×2 (16:12)
[2018-06-28] MEDS ORDERED: Ondansetron PF 4 MG/2 ML Vial IVP PRN (16:12)
[2018-06-28] MEDS ORDERED: Acetaminophen 325 MG TAB PO PRN (16:12)
[2018-06-28] MEDS ORDERED: cefTRIAXone\\ROCEPHIN 1 GM in Sodium Chloride 0.9% 100 ML IVPB SCH (17:00)
--- NOTE | 2018-06-28 17:18 | PDOC.FM ---
- Subjective Subjective: Ms. Manzanares presents today after a one day history of slurred speech She says for the past few months she has had increasing word finding difficulty , difficulty concentrating and trouble finding places she has been to many times. She reports no focal weakness or facial droop. She has been admitted multiple times in the past for TIAs, no sequale. She denies and SOB, CP, Palpitations - Objective Vital Signs & Weight: Vital Signs (12 hours) Temp Pulse Resp BP Pulse Ox 06/28/18 16:11 97.6 F 65 18 106/55 L 95 Result Diagrams: 06/28/18 11:09 06/28/18 11:09
--- NOTE | 2018-06-28 19:30 | PDOC.FPRHP ---
- History of Present Illness Chief Complaint: AMS History of Present Illness: Ms. Manzanares presents today after a one day history of slurred speech She says for the past few months she has had increasing word finding difficulty , difficulty concentrating and trouble finding places she has been to many times. She reports no focal weakness or facial droop. She has been admitted multiple times in the past for TIAs, no sequale. She denies and SOB, CP, Palpitations ED Course: CTA/CT neg, CBC/CMP - Allergies/Adverse Reactions Allergies Allergy/AdvReac Type Severity Reaction Status Date / Time trazodone HCl [From Desyrel] Allergy Severe Hives Verified 02/09/17 22:43 amitriptyline [From Elavil] Allergy Verified 02/09/17 22:43 - Home Medications Medication Instructions Recorded Confirmed Type Multivit-Min/FA/Lycopene/Lut 1 tab PO DAILY 12/19/13 06/28/18 History [Centrum Silver] Pantoprazole Sodium [Protonix] 20 mg PO DAILY 04/23/16 06/28/18 History Ranolazine [Ranexa] 500 mg PO BID #0 tab 05/26/16 06/28/18 Rx Aspirin-Dipyridamole [Aggrenox] 1 cap PO BID cap 01/24/17 06/28/18 Rx BuPROPion XL [Wellbutrin XL] 300 mg PO DAILY tab 01/24/17 06/28/18 Rx Escitalopram Oxalate [Lexapro] 20 mg PO DAILY tab 01/24/17 06/28/18 Rx clonazePAM [Klonopin] 0.5 mg PO BIDPRN PRN #0 tab 01/24/17 06/28/18 Rx Atorvastatin Calcium [Lipitor] 80 mg PO HS 02/09/17 06/28/18 History Levothyroxine Sodium [Synthroid] 100 mcg PO 0600 #30 tab 02/10/17 06/28/18 Rx Melatonin 10 mg PO HS 02/16/18 06/28/18 History Folic Acid 0.8 mg PO DAILY 06/28/18 06/28/18 History - History PMHx:Hypothyroid, BPD, Polypharmacy, Hx of CVA, CAD, GERD, HLD, HTN PSHx:Hysterectomy, 4th L toe amputation 2/2 osteo, Cholecystectomy, Shoulder surgery,Tonsillectomy FHx: NC Social:40+ year smoking hx, Denies etoh or recreational drug - Review of Systems General: denies: fever/chills, weight/appetite/sleep changes Eyes: reports: vision changes. denies: eye pain ENT: denies: nasal congestion Respiratory: denies: cough, congestion Cardiovascular: denies: chest pain, palpitation, edema, orthopnea Gastrointestinal: denies: nausea, vomiting, diarrhea Genitourinary: denies: incontinence, dysuria Skin: denies: rashes, lesions Musculoskeletal: denies: pain, tenderness Neurological: reports: weakness, other (past pointing, nystagmus). denies: numbness, syncope - Vital signs BP: [] HR: [] RR: [] Tmax: [] Pox: []% on [] Wt: [] - Physical Exam Constitutional: NAD, awake, alert and oriented HEENT: normocephalic and atraumatic, no scleral icterus Neck: supple, FROM, trachea midline Chest: no-tender to palpation Heart: RRR, normal S1/S2, no murmurs/rubs/gallops Lungs: CTAB, no respiratory distress, good air movement Abdomen: soft, non-tender, bowel sounds present Neurological: no focal deficit Skin: no rash/lesions Heme/Lymphatic: no unusual bruising or bleeding Psychiatric: normal mood and affect FMR H&P: Results - Labs Result Diagrams: 06/29/18 04:38 06/29/18 04:39 Lab results: WBC 6.2 thou/uL (4.8-10.8) 06/28/18 11:09 Hgb 12.6 g/dL (12.0-16.0) 06/28/18 11:09 Hct 38.8 % (36.0-47.0) 06/28/18 11:09 MCV 108.0 fL (78.0-98.0) H 06/28/18 11:09 Plt Count 271 thou/uL (130-400) 06/28/18 11:09 Neutrophils % 65.5 % (42.0-75.0) 06/28/18 11:09 Sodium 140 mmol/L (136-145) 06/28/18 11:09 Potassium 4.9 mmol/L (3.5-5.1) 06/28/18 11:09 Chloride 111 mmol/L (98-107) H 06/28/18 11:09 Carbon Dioxide 18 mmol/L (23-31) L 06/28/18 11:09 BUN 20 mg/dL (9.8-20.1) 06/28/18 11:09 Creatinine 1.26 mg/dL (0.6-1.1) H 06/28/18 11:09 Glucose 133 mg/dL (80-115) H 06/28/18 11:09 Calcium 9.0 mg/dL (7.8-10.44) 06/28/18 11:09 Total Bilirubin 0.5 mg/dL (0.2-1.2) 06/28/18 11:09 AST 31 U/L (5-34) 06/28/18 11:09 ALT 17 U/L (8-55) 06/28/18 11:09 Alkaline Phosphatase 49 U/L (40-150) 06/28/18 11:09 Serum Total Protein 6.6 g/dL (6.0-8.3) 06/28/18 11:09 Albumin 3.9 g/dL (3.4-4.8) 06/28/18 11:09 Urine Ketones Negative mg/dL (Negative) 06/28/18 12:01 Urine Blood Negative (Negative) 06/28/18 12:01 Urine Nitrite Negative (Negative) 06/28/18 12:01 Ur Leukocyte Esterase Trace (Negative) H 06/28/18 12:01 Urine RBC 0-3 HPF (0-3) 06/28/18 12:01 Urine WBC 4-6 HPF (0-3) H 06/28/18 12:01 Ur Squamous Epith Cells 4-6 HPF (0-3) H 06/28/18 12:01 Urine Bacteria Rare-Few HPF (None Seen) 06/28/18 12:01 FMR H&P: A/P - Problem List (1) Apraxia of speech Current Visit: No Status: Acute Code(s): R48.2 - APRAXIA (2) Bipolar disorder Current Visit: No Status: Chronic Priority: Low Code(s): F31.9 - BIPOLAR DISORDER, UNSPECIFIED (3) Hypertension Current Visit: No Status: Chronic Priority: Medium Code(s): I10 - ESSENTIAL (PRIMARY) HYPERTENSION Qualifiers: Hypertension type: essential hypertension Qualified Code(s): I10 - Essential (primary) hypertension - Plan vague neurologic symptoms - low suspiscion for acute ischemia, most likely sequale vs TIA - MRI, TTE ordered - continue high dose statin therapy, aggrenox - heart healthy diet pending swallow study UTI - more likely cause of acute worsening of mental status - rochepin q24 - encourage PO hydration BPD - continue home medications Gerd - continue home medications HTN - continue home meds code: full ppx: aggrenox Disposition/LOS: DC tomorrow with neg MRI and Echo FMR H&P: Upper Level - Pertinent history Mimi Manzanares is a 62 year old female who presents with chief complaint of several hours of confusion, word finding difficulties. Prior history of TIAs. - Plan Date/Time: 06/28/181928 I, Mayra Rollins, have evaluated this patient and agree with findings/plan as outlined by internal medicine doctor resident. Pertinent changes/additions are listed here. Acute encephalpathy - given pt's history of prior TIA/CVA and risk factors, will evaluate for CVA. Pts symptoms are back to baseline. - CT/CTA head negative. EKG wnl. - will obtain carotid dopplers and MRI in am to evaluate for acute ischemia. - may consider full anticoagulation since pt is on aggrenox. Bipolar disorder - resume home meds Hypothyroidism - resume home meds Coronary artery disease - resume home meds Attending Addendum - Attending Addendum Date/Time: 06/28/181823 I personally evaluated the patient and discussed the management with Dr. Cunningham and Dr. Rollins I agree with the History, Examination, Assessment and Plan documented above with any addition or exceptions noted below. 62 yo female admitted for TIA rule out. Now with symptom resolution. Reports slurred speech and word finding difficulty. Now completely resolved. VS reviewed. Labs reviewed. Imaging reviewed. PE WNL. Rule out infectious, neurologic, psycho-social, metabolic, or cardiac causes. Likey d/c tomorrow. ABrayMD
[2018-06-28] MEDS: Aggrenox 200-25mg CAP PO SCH (20:18)
[2018-06-28] MEDS ORDERED: Melatonin 3 MG TAB PO PRN (20:39)
[2018-06-28] MEDS ORDERED: Atorvastatin Calcium 40 MG TAB PO SCH (21:00)
[2018-06-29] MEDS ORDERED: clonazePAM 0.5 MG TAB PO PRN (04:51)
[2018-06-29 05:06] LABS: #Eosinphils 0.2 thou/uL (0.0-0.7); #Lymphocytes 1.4 thou/uL (1.20-3.40); #Monocytes 0.5 thou/uL (0.11-0.59); #Neutrophils 4.4 thou/uL (1.40-6.50); %Basophils 0.3 % (0.0-1.0); %Eosinophils 3.2 % (0.0-10.0); %Monocytes 8.3 % (0.0-10.0); %Neutrophils 67.2 % (42.0-75.0); Hemoglobin 11.7 g/dL (12.0-16.0); Mean Corpuscular HGB CONC 32.7 g/dL (32.0-36.0); Mean Corpuscular Hemoglobin 34.7 pg (27.0-31.0); Mean Platelet Volume 6.5 fL (7.4-10.4); Platelet Count 258 thou/uL (130-400); RBC Distribution Width 10.6 % (11.5-14.5); Red Blood Cell (RBC) Count 3.38 mill/uL (4.20-5.40); White Blood Cell (WBC) Count 6.5 thou/uL (4.8-10.8)
[2018-06-29 05:16] LABS: ALT (SGPT) 16 U/L (8-55); AST (SGOT) 16 U/L (5-34); Albumin 3.6 g/dL (3.4-4.8); Alkaline Phosphatase 50 U/L (40-150); Anion Gap 8 mmol/L (10-20); BUN (Urea Nitrogen) 16 mg/dL (9.8-20.1); Bilirubin, Total 0.4 mg/dL (0.2-1.2); Calc. Creatinine Clearance 73 mL/min (70-130); Calcium 9.3 mg/dL (7.8-10.44); Carbon Dioxide 26 mmol/L (23-31); Cardiac Risk 2.5 (Less than 4.5); Chloride 111 mmol/L (98-107); Cholesterol 118 mg/dl (< 200 Desired); Estimated GFR-MDRD 53; Globulin 2.3 g/dL (2.4-3.5); Glucose 131 mg/dL (80-115); HDL Cholesterol 48 mg/dL (>60 Neg Risk); LDL Cholesterol, Calculated 54 mg/dL; Protein, Total 5.9 g/dL (6.0-8.3); Sodium 141 mmol/L (136-145); Triglycerides 78 mg/dL (Less than 150)
--- NOTE | 2018-06-29 05:30 | PDOC.FM ---
- Subjective Subjective: Pt is feeling well this AM and feels that her symptoms have improved greatly. Today she describes her symptoms as having been difficulty pronouncing words and as having increased anxiety while driving. No other complaints at this time. No cp/palpitations, no sob/cough, no N/V - Objective MAR Reviewed: Yes Vital Signs & Weight: Vital Signs (12 hours) Temp Pulse Resp BP BP BP Pulse Ox 06/29/18 04:40 98.5 F 71 16 98/50 L 95 06/29/18 00:31 98.1 F 71 16 93/50 L 95 06/28/18 20:17 97.8 F 59 L 18 120/64 96 Weight Weight 81.647 kg I&O: 06/27/18 06/28/18 06/29/18 07:59 06:59 06:59 Intake Total 400 Output Total 900 Balance -500 Result Diagrams: 06/29/18 04:38 06/29/18 04:39 <Yuan Rosa - Last Filed: 06/29/18 13:26> - Objective Vital Signs & Weight: Vital Signs (12 hours) Temp Pulse Resp BP Pulse Ox 06/29/18 12:00 99.0 F 75 16 92/49 L 92 L 06/29/18 07:54 98.3 F 74 16 110/61 95 06/29/18 04:40 98.5 F 71 16 98/50 L 95 Weight Weight 81.647 kg I&O: 06/28/18 06/29/18 06/30/18 06:59 06:59 06:59 Intake Total 640 Output Total 1700 500 Balance -1060 -500 Result Diagrams: 06/29/18 04:38 06/29/18 04:39 <Tejas Hernandez - Last Filed: 06/29/18 13:46> Phys Exam - Physical Examination Constitutional: NAD HEENT: moist MMs, sclera anicteric Neck: no nodes, supple Respiratory: no wheezing, clear to auscultation bilateral Cardiovascular: RRR, no significant murmur Gastrointestinal: soft, non-tender Musculoskeletal: no edema, pulses present Neurological: non-focal, normal sensation, moves all 4 limbs CN 2-12 intact Psychiatric: normal affect, A&O x 3 Skin: no rash, normal turgor <Yuan Rosa - Last Filed: 06/29/18 13:26> Dx/Plan (1) Acute encephalopathy Code(s): G93.40 - ENCEPHALOPATHY, UNSPECIFIED Status: Acute (2) Hypothyroidism Code(s): E03.9 - HYPOTHYROIDISM, UNSPECIFIED Status: Acute (3) Bipolar disorder Code(s): F31.9 - BIPOLAR DISORDER, UNSPECIFIED Status: Chronic (4) Coronary artery disease Code(s): I25.10 - ATHSCL HEART DISEASE OF [place] CORONARY ARTERY W/O ANG PCTRS Status: Chronic Qualifiers: Coronary Disease-Associated Artery/Lesion type: [place] artery [place] vs. transplanted heart: [place] heart Associated angina: without angina Qualified Code(s): I25.10 - Atherosclerotic heart disease of [place] coronary artery without angina pectoris (5) GERD (gastroesophageal reflux disease) Code(s): K21.9 - GASTRO-ESOPHAGEAL REFLUX DISEASE WITHOUT ESOPHAGITIS Status: Chronic (6) Hx TIA/stroke w/o resid Code(s): Z86.73 - PRSNL HX OF TIA (TIA), AND CEREB INFRC W/O RESID DEFICITS Status: Chronic - Plan Plan: Acute Encephalopathy A- low suspiscion for acute ischemia, most likely TIA sequela or 2/2 anxiety P- MRI -TTE - continue high dose statin therapy -aggrenox - heart healthy diet pending swallow study - DC today pending normal MRI UTI A- UA shows trace leukocyte esterase and 4-6 WBC, however also shows squamous cells. pt is asymptomatic P- rochepin q24 x1 - encourage PO hydration - UCx pending - no further ABX necessary at this time BPD - continue home medications (escitalopram, wellbutrin, clonazepam) Gerd - continue home medications HTN - continue home meds code: full ppx: aggrenox <Yuan Rosa - Last Filed: 06/29/18 13:26> Attending Addendum - Attending Addendum Date/Time: 06/29/18 1546 I personally evaluated the patient and discussed the management with Dr. Rosa. I agree with and repeated the History, Examination, Assessment and Plan documented above with any addition or exceptions noted below. No weakness/numbness/dysarthria/dysphagia. Motor 5/5 upper and lower. SILT in all 4 ext. CN II-XII intact and symmetric. Likely discharge pending finalized imaging. <Tejas Hernandez - Last Filed: 06/29/18 13:46>
[2018-06-29] MEDS ORDERED: Levothyroxine Sodium 100 MCG TAB PO SCH (06:00)
[2018-06-29] MEDS: Enoxaparin Sodium 40 MG/0.4 ML SYRINGE SC SCH ×2 (08:36→08:40)
[2018-06-29] MEDS: Aggrenox 200-25mg CAP PO SCH (08:37)
[2018-06-29] MEDS ORDERED: Bupropion 150 MG XL TAB PO SCH (09:00)
[2018-06-29] MEDS ORDERED: Multivitamin W/ Minerals 1 TAB PO SCH (09:00)
[2018-06-29] MEDS ORDERED: Folic Acid 1 MG TAB PO SCH (09:00)
[2018-06-29] MEDS ORDERED: Escitalopram Oxalate 20 mg Tablet PO SCH (09:00)
--- NOTE | 2018-06-29 09:43 | MRI ---
NONCONTRAST MRI OF BRAIN: DATE: 06/29/2018. HISTORY: TIA. The patient reports change in speech 10 minutes prior to arrival with weakness in bilateral low er extremities 1 day ago. History of prior stroke. COMPARISON: MRI of brain 08/11/[address] head on 06/28/2018. FINDINGS: No signal abnormalities are seen throughout the brain. The septum pellucidum and third ventricle are in the midline. The ventricular system is normal in size, shape, and position. Appropriate flow voids are demonstrated at the base of the brain. There is mild mucosal thickening seen in the bilateral ethmoidal air cells and left maxillary antrum. Right maxillary antrum is small in size and completely opacified. Teller lenses are not visualized bilaterally, which is a stable finding. There has been no significant interval change compared to t he prior MRI brain in 2010. IMPRESSION: 1. No acute intracranial abnormality is demonstrated. 2. Mild sinus disease. POS: [facility]
[2018-06-29 16:15] VITALS: BP 116/52; TEMP 98.3
[2018-06-29] MEDS ORDERED: Melatonin 3 MG TAB PO SCH (21:00)
--- NOTE | 2018-06-30 12:55 | DIS-2 ---
DATE OF ADMISSION: 06/28/2018 DATE OF DISCHARGE: 06/29/2018 RESIDENT: Dr. Yuan Rosa. ADMITTING ATTENDING: Dr. Pili Wagner. DISCHARGE ATTENDING: Dr. Tejas Hernandez. CONSULTATIONS: None. PROCEDURES: 1. On 06/28/2018: Brain CT, impression: No CT evidence of acute intracranial process. 2. On 06/28/2018: CT [place] angio with contrast, impression: Unremarkable CT angio of th e head. 3. On 06/29/2018: Brain MRI, impression: No acute intracranial abnormality is demonstrated, mild s inus disease. 4. On 06/29/2018: Echocardiogram, summary ejection fraction is visually estimated at 55%-60%, karime l right ventricular size and function. Left atrium is normal size, normal right atrium size, trace m itral regurgitation is present. Aortic valve leaflets are somewhat thickened, mild tricuspid regurgi tation. PRIMARY DIAGNOSIS: Transient ischemic attack. SECONDARY DIAGNOSES: Bipolar disorder, hypothyroidism, coronary artery disease, urinary tract infect ion. DISCHARGE MEDICATIONS: 1. Multivitamin 1 tab p.o. daily. 2. Pantoprazole 20 mg p.o. daily. 3. Ranexa 500 mg p.o. b.i.d. 4. Aggrenox 1 cap p.o. b.i.d. 5. Wellbutrin 300 mg p.o. daily. 6. Lexapro 20 mg p.o. daily. 7. Klonopin 0.5 mg p.o. b.i.d. p.r.n. 8. Atorvastatin calcium 80 mg p.o. at bedtime. 9. Levothyroxine 100 mcg p.o. daily. 10. Melatonin 10 mg p.o. at bedtime. 11. Folic acid 0.8 mg p.o. daily. DISCONTINUED MEDICATIONS: Hydrocodone with APAP, [place] 5/325 mg 1 tab p.o. q.6 hours p.r.n. HISTORY OF PRESENT ILLNESS AND HOSPITAL COURSE: This is a 62-year-old female with history of CVA and TIA x3, who presented to the ED with increased word finding difficulty and difficulty concentrating as well as difficulty with anxiety and driving and trouble finding places that she had been too many times, though she had no focal weakness or facial droop considering her history of CVA and multiple T IAs. Patient was admitted for workup of stroke. Head CTA and head MRI were all negative throughout her stay as well as an echocardiogram, which was performed on the day of her discharge once patient w as deemed safe for discharge and stroke was ruled out. Patient was discharged home with plans for PC P and Neurology followup. Otherwise, her hospital stay was originally complicated for UTI. There wa s concern for it, as patient had a UA showing trace leukocyte esterase and 4 to 6 white blood cells. Patient received one dose of Rocephin in the ER; however, on further evaluation of UA, as the patien t then reported being asymptomatic and the UA showed squamous cells. Antibiotic coverage was discont inued. All other chronic medications, chronic conditions were covered with home medications. DISPOSITION: Stable. DISCHARGE INSTRUCTIONS: 1. Location: Home. 2. Diet: Heart-healthy diet. 3. Activity: As tolerated. 4. Follow up Dr. Marilyn Mckeon PCP in 10 days.
== END 2018-06-29 16:24 | disposition home or self-care (01) ==
LOC: ERS 10:39 → 2SE 12:15
PROVIDERS: ADMIT Student in an Organized Health Care Education/Training Program; ATTEND Student in an Organized Health Care Education/Training Program
DX: G45.9 Transient cerebral ischemic attack, unspecified (principal); G93.40 Encephalopathy, unspecified; F31.9 Bipolar disorder, unspecified; N39.0 Urinary tract infection, site not specified; I25.10 Atherosclerotic heart disease of native coronary artery without angina pectoris; K21.9 Gastro-esophageal reflux disease without esophagitis; I10 Essential (primary) hypertension; E03.9 Hypothyroidism, unspecified; Z79.899 Other long term (current) drug therapy; Z86.73 Personal history of transient ischemic attack (TIA), and cerebral infarction without residual deficits; Z87.891 Personal history of nicotine dependence; Z88.8 Allergy status to other drugs, medicaments and biological substances
CPT/HCPCS: 70450; 70496; 70551; 80053 ×2; 80061; 80306; 82607; 85025 ×2; 87086; 90732; 93306; 96374; 97139; 99285; G0009; G0378 ×2; G8978; G8979; G8980; 36415; 81003; 81015; 90471; J0696; J1650; J7050

== ENCOUNTER 2018-07-15 14:00 | Outpatient (CLI) | payer MEDICARE, MEDICAID ==
--- NOTE | 2018-07-15 14:47 | ULT ---
BILAERAL RENAL ULTRASOUND: HISTORY: Chronic renal disease. FINDINGS: Correlation is made with the CT scan of 05/27/2018. The right kidney measures 8.5 cm in length and the left kidney measures 8.8 cm in length. No focal m ass or hydronephrosis is seen on either side. No shadowing calculi identified. Cortical thickness a nd echogenicity are normal. The urinary bladder is incompletely distended with a volume of 86 cc. IMPRESSION: Unremarkable exam. POS: [facility]
== END 2018-07-15 14:01 | disposition home or self-care (01) ==
LOC: BICULT 14:00
PROVIDERS: ATTEND Internal Medicine Nephrology
DX: N18.3 Chronic kidney disease, stage 3 (moderate) (principal)
CPT/HCPCS: 76770

== ENCOUNTER 2018-10-17 10:17 | Observation (INO) | payer MEDICARE, MEDICAID ==
--- NOTE | 2018-10-17 11:31 | CT ---
HEAD CT WITHOUT CONTRAST: HISTORY: Level I stroke. Slurred onset of speech. COMPARISON: 06/28/2018. FINDINGS: No parenchymal hemorrhage. No extraaxial hematoma. No midline shift. Basilar cisterns are patent. Age-appropriate atrophy. Cortical holliday-white matter differentiation is preserved. Ventricles and sulci are patent and symmetric. Adequate aeration of the sinuses and mastoid air cells. Intact calvarium. IMPRESSION: No acute intracranial process. Results of the study were discussed with Dr. Elton Mondragon 10/17/2018 at 10:40 a.m. CODE MIKEY POS: [facility]
--- NOTE | 2018-10-17 11:47 | CT ---
CT ANGIOGRAM OF THE HEAD CT ANGIOGRAM OF [place]: HISTORY: Slurred speech. COMPARISON: 06/28/2018. TECHNIQUE: CT angiogram of the head and neck are performed in the axial plane. Three-dimensional reformatted images are submitted for interpretation. FINDINGS: Postcontrast head CT demonstrates preservation of cortical holliday-white matter differentiation. Chroni c changes in the right maxillary sinus. Adequate mastoid air cell aeration. Bilateral ocular lens i mplants are appropriately located. Both globes are intact. Retrobulbar fat is preserved. Symmetric attenuation of the optic nerves and ocular rectus muscles. Visualized aerodigestive tract is patent. No mucosal abnormality. Limited evaluation of the oral ca vity due to dental amalgam artifact. Midline fatty raphae of the tongue is preserved. Epiglottis murillo s a normal caliber. No prevertebral soft tissue swelling. Symmetric attenuation of the parotic and submandibular glands. Symmetric attenuation of the sternocl eidomastoid muscles. No evidence of lymphadenopathy by size criteria. Thyroid gland appears to be surgically absent. Correlate clinically. Upper mediastinum and lung api keshawn are unremarkable. Cervical spine vertebral body height is maintained. No evidence of a cervical spine fracture. There varying degrees of central canal stenosis and neural foraminal narrowing on the basis of degenerativ e change. CT ANGIOGRAM: Appropriate enhancement and luminal diameter. RIGHT CAROTID: The right carotid artery origin, common carotid artery, carotid bifurcation, and internal carotid art mikie do not have any significant stenosis based upon NASCET criteria. Sagittal images demonstrate alpesh roximately 1 mm small atheromatous ulceration. LEFT CAROTID: The left carotid artery origin, common carotid artery, carotid bifurcation, and internal carotid bea ry have appropriate enhancement and luminal diameter. No significant stenosis based upon NASCET crit eria. Bilateral cervical vertebral arteries are patent throughout their course in the neck. Bilateral subs egmental arteries are unremarkable. CT ANGIOGRAM OF THE HEAD: There is symmetric enhancement and luminal diameter of both intracranial carotid arteries. Atherosclerosis without significant narrowing in both cavernous and pericolonic segments. ANTERIOR CIRCULATION: Appropriate enhancement and luminal diameter of the A1 and M1 segments. Anterior communicating arter y is patent. The proximal A2 segments and proximal MCA branches are patent and symmetric. POSTERIOR CIRCULATION: Intracranial vertebral arteries are patent. Left PICA artery origin is unremarkable. Limited evalua tion of the right PICA artery origin. Both vertebral arteries supply a normal-appearing basilar bea ry. Left and right P1 segments have appropriate enhancement and luminal diameter. IMPRESSION: 1. Unremarkable CT angiogram of the [place]. 2. No significant stenosis based upon NASCET criteria. 3. Small 1 mm ulceration on the posterior aspect of the distal right common carotid artery which ma y represent an atheromatous lesion. Results of the study discussed with Dr. Naranjo 10/17/2018 at 10/17/2018 at 10:52 a.m. CODE CR POS: [facility]
[2018-10-17 11:49] LABS: ALT (SGPT) 19 U/L (8-55); AST (SGOT) 26 U/L (5-34); Alkaline Phosphatase 50 U/L (40-150); Anion Gap 14 mmol/L (10-20); BUN (Urea Nitrogen) 20 mg/dL (9.8-20.1); Bilirubin, Total 0.3 mg/dL (0.2-1.2); CK (CPK) 142 U/L (29-168); Calc. Creatinine Clearance 0 mL/min (70-130); Calcium 9.7 mg/dL (7.8-10.44); Carbon Dioxide 22 mmol/L (23-31); Chloride 107 mmol/L (98-107); Estimated GFR-MDRD 53; Globulin 2.6 g/dL (2.4-3.5); Glucose 82 mg/dL (80-115); Potassium 4.9 mmol/L (3.5-5.1); Protein, Total 6.6 g/dL (6.0-8.3); Sodium 138 mmol/L (136-145)
[2018-10-17 11:57] LABS: #Eosinphils 0.1 thou/uL (0.0-0.7); #Lymphocytes 1.5 thou/uL (1.20-3.40); #Monocytes 0.5 thou/uL (0.11-0.59); #Neutrophils 3.5 thou/uL (1.40-6.50); %Basophils 0.7 % (0.0-1.0); %Eosinophils 2.3 % (0.0-10.0); %Lymphocytes 26.9 % (21.0-51.0); %Monocytes 8.7 % (0.0-10.0); %Neutrophils 61.5 % (42.0-75.0); Hemoglobin 12.2 g/dL (12.0-16.0); MDiff Complete? YES; Macrocytosis MODERATE=16-30 cells (100X) (0-5/hpf); Mean Corpuscular HGB CONC 33.4 g/dL (32.0-36.0); Mean Platelet Volume 7.1 fL (7.4-10.4); Ovalocytes MODERATE= 6-15 cells (100X) (0-1/hpf); Platelet Count 239 thou/uL (130-400); RBC Distribution Width 11.3 % (11.5-14.5); Red Blood Cell (RBC) Count 3.49 mill/uL (4.20-5.40); White Blood Cell (WBC) Count 5.6 thou/uL (4.8-10.8)
--- NOTE | 2018-10-17 11:59 | PDOC.FPRHP ---
- History of Present Illness Chief Complaint: slurred speech, dizziness History of Present Illness: This is a 62yo F presenting to the ED with a CC of slurred speech. Patient reports slurred speech x 15 minutes prior to arrival about 1000. Patient was bending over looking at a box when she suddenly became dizzy, lightheadedness, and had slurred speech. She states she was unable to walk at that time. Denies weakness, numbness, or tingling. She reports previous TIAs, about 4 in total and most recent about 2-3 years ago - she reports deficit of short term memory from those episodes but no other deficits. During those episodes she also experienced difficulty speaking. She states this episode is more intense than her previous TIAs. She reports headache in right temporal area that lasted 15 min which resolved. Denies chest pain, SOB, palpitations. The event was witness by her who was able to stabilize her. Patient did not have LOC. On exam in the ED, the patient has improved, but not quite to baseline. She states her speech is still not at baseline which is corroborated by . ED Course: 325 ASA - Allergies/Adverse Reactions Allergies Allergy/AdvReac Type Severity Reaction Status Date / Time trazodone HCl [From Desyrel] Allergy Severe Hives Verified 02/09/17 22:43 amitriptyline [From Elavil] Allergy Verified 02/09/17 22:43 - Home Medications Medication Instructions Recorded Confirmed Type Multivit-Min/FA/Lycopene/Lut 1 tab PO DAILY 12/19/13 10/17/18 History [Centrum Silver] Pantoprazole Sodium [Protonix] 20 mg PO DAILY 04/23/16 10/17/18 History Ranolazine [Ranexa] 500 mg PO BID #0 tab 05/26/16 10/17/18 Rx Aspirin-Dipyridamole [Aggrenox] 1 cap PO BID cap 01/24/17 10/17/18 Rx BuPROPion XL [Wellbutrin XL] 300 mg PO DAILY tab 01/24/17 10/17/18 Rx Escitalopram Oxalate [Lexapro] 20 mg PO DAILY tab 01/24/17 10/17/18 Rx clonazePAM [Klonopin] 0.5 mg PO BIDPRN PRN #0 tab 01/24/17 10/17/18 Rx Atorvastatin Calcium [Lipitor] 80 mg PO HS 02/09/17 10/17/18 History Levothyroxine Sodium [Synthroid] 100 mcg PO 0600 #30 tab 02/10/17 10/17/18 Rx Melatonin 10 mg PO HS 02/16/18 10/17/18 History Folic Acid 0.8 mg PO DAILY 06/28/18 10/17/18 History Albuterol Sulfate [Ventolin Hfa] 2 puff INH Q4HR PRN 10/17/18 10/17/18 History Fluticasone Propionate [Flonase 1 spray EA NARE PRN PRN 10/17/18 10/17/18 History Nasal [place]] Meclizine HCl [Antivert] 25 mg PO TID PRN 10/17/18 10/17/18 History Nitroglycerin 0.4 mg SL PRN PRN 10/17/18 10/17/18 History - History PMHx: hypothyroidism, HLD, sleep apnea, TIA X 2 - no deficits, COPD, bipolar - manic depression PSHx: hysterectomy - 1988, 4th toe removal on left foot, cholecystectomy, bilateral shoulder surgery, tonsillectomy FHx: mother - colon cancer, dad - heart aneurysm Social: former tobacco user - 25 pack year hx - quit in 2016, denies alcohol and drug use - Review of Systems General: denies: fever/chills, weight/appetite/sleep changes, night sweats, fatigue Eyes: reports: vision changes. denies: eye pain ENT: denies: nasal congestion, rhinorrhea Respiratory: denies: cough, congestion, shortness of breath Cardiovascular: denies: chest pain, palpitation, edema Gastrointestinal: denies: nausea, vomiting, diarrhea, constipation, abdominal pain, GI bleeding Genitourinary: denies: dysuria Skin: denies: rashes, lesions Musculoskeletal: denies: pain, tenderness, stiffness, swelling, arthritis/ arthralgias Neurological: denies: numbness, syncope, seizure, weakness Psychological: reports: depression - Vital signs BP: 114/83 HR: 66 RR: 18 Tmax: 98.1 Pox: 99% on RA Wt: 79.6kg - Physical Exam Constitutional: NAD, awake, alert and oriented, well developed HEENT: normocephalic and atraumatic, PERRLA, EOMI, conjunctiva clear, no scleral icterus, grossly normal vision, normal nasal mucosa, MMM Neck: supple, FROM, trachea midline Chest: no-tender to palpation, no lesions Heart: RRR, normal S1/S2, no murmurs/rubs/gallops, pulses present, no edema Lungs: CTAB, no respiratory distress, good air movement, no rales/rhonchi, no wheezing, no retractions Abdomen: soft, non-tender, bowel sounds present, no masses/distention, no hernias Musculoskeletal: normal structure, normal tone, ROM grossly normal Neurological: no focal deficit, CN II-XII intact, DTRs 2+ -Neurological: Sensation diminished on right face, decreased hearing on right; strength 5/5 bilaterally; speech mildly slurred; no asymmetry Skin: no rash/lesions, good turgor, capillary refill <2 seconds Heme/Lymphatic: no unusual bruising or bleeding, no purpura, no petechia Psychiatric: normal mood and affect, good judgment and insight, intact recent and remote memory FMR H&P: Results - Labs Result Diagrams: 10/17/18 10:36 10/17/18 10:36 Lab results: Sodium 138 mmol/L (136-145) 10/17/18 10:36 Potassium 4.9 mmol/L (3.5-5.1) 10/17/18 10:36 Chloride 107 mmol/L (98-107) 10/17/18 10:36 Carbon Dioxide 22 mmol/L (23-31) L 10/17/18 10:36 BUN 20 mg/dL (9.8-20.1) 10/17/18 10:36 Creatinine 1.05 mg/dL (0.6-1.1) 10/17/18 10:36 Glucose 82 mg/dL (80-115) 10/17/18 10:36 Calcium 9.7 mg/dL (7.8-10.44) 10/17/18 10:36 Total Bilirubin 0.3 mg/dL (0.2-1.2) 10/17/18 10:36 AST 26 U/L (5-34) 10/17/18 10:36 ALT 19 U/L (8-55) 10/17/18 10:36 Alkaline Phosphatase 50 U/L (40-150) 10/17/18 10:36 Creatine Kinase 142 U/L (29-168) 10/17/18 10:36 Serum Total Protein 6.6 g/dL (6.0-8.3) 10/17/18 10:36 Albumin 4.0 g/dL (3.4-4.8) 10/17/18 10:36 - Radiology Interpretation CT scan - head Status: report reviewed by me (no ischemia or bleeding) FMR H&P: A/P - Problem List (1) Hx TIA/stroke w/o resid Current Visit: No Status: Chronic Code(s): Z86.73 - PRSNL HX OF TIA (TIA), AND CEREB INFRC W/O RESID DEFICITS (2) Hyperlipidemia Current Visit: No Status: Chronic Priority: Medium Code(s): E78.5 - HYPERLIPIDEMIA, UNSPECIFIED (3) Hypertension Current Visit: No Status: Chronic Priority: Medium Code(s): I10 - ESSENTIAL (PRIMARY) HYPERTENSION Qualifiers: Hypertension type: essential hypertension Qualified Code(s): I10 - Essential (primary) hypertension (4) Hypothyroid Current Visit: No Status: Chronic Priority: Low Code(s): E03.9 - HYPOTHYROIDISM, UNSPECIFIED (5) TIA (transient ischemic attack) Current Visit: No Status: Suspected Qualifiers: Transient cerebral ischemia type: unspecified Qualified Code(s): G45.9 - Transient cerebral ischemic attack, unspecified - Plan Transient Ischemic Attack Patient presenting with slurred speech and dizziness. PMH of previous TIAs. CT neg for bleeding or ischemia. CTA negative for occlusion of vessels. Troponins neg X1. NIH stroke scale of 2. - Admit to stroke for TIA work up, observation - Neuro checks every 4 hours, stroke team consulted - EKG showed NSR - MRI pending - FLP in 07/12 performed, patient on high intensity statin - Patient currently on aggrenox; can consider starting plavix - Echo in 07/12 showed EF 55-60, normal LA size, trace MR, and mild TR Hypothyroidism - Will restart home meds GERD - Will restart home meds COPD - aware, will continue home meds - no symptoms currently, will continue to monitor VS HLD - Will restart home meds Bipolar - manic depression - aware, will continue home meds Code: Full PCP: Linda Diet: will make NPO until cleared by speech DISPO: will admit to stroke for observation FMR H&P: Upper Level - Pertinent history 62 yo f with reported hx of CVA but no evidence of such on prior MRI, and reported hx of TIA, presents with slurred speech and lightheadedness since 10am this morning, admitted for suspected CVA vs TIA. VSS PE: NAD CTAB RRR decreased sensation to light touch and temp of face on right side; 4/5 lower extremity; 5/5 upper extremity, negative rhomberg, negative drift, negative cerebellar testing, normal sensation of upper and lower extremities; CN otherwise normal than what was stated above #TIA vs CVA- DDX: conversion disorder -c/o slurred speech with PE findings of left sided decreased sensation to light touch and temp of face -prior workup in 06/2018 which was negative for a CVA, also two prior workups in 2015 negative for CVA -Hd CT negative, CTA head and neck negative -ECHO in June showed EF of 55-60% and no vegetations -EKG today NSR -Lipid profile completed in June 2018 and she is currently on a high intensity statin -Admit to stroke, q4h neuro checks, brain MRI ordered HTN HLD Bipolar D/O GERD CAD Hx TIA vs CVA COPD -->restart home meds CODE: full DVT: SCDs Diet: NPO intil speech tessa Baez MD, PGY-2 - Plan Date/Time: 10/17/18 1329 I, Linn Baez MD, PGY-2 have evaluated this patient and agree with findings/plan as outlined by campus interviews intern resident. Pertinent changes/additions are listed above. Addendum - Attending - Attending Attestation Date/Time: 10/17/18 0486 I personally evaluated the patient and discussed the management with Dr. Oviedo/ Juan. I agree with the History, Examination, Assessment and Plan documented above with any addition or exceptions noted below. Patient with history of CVA and recurrent TIA here with dizziness and slurred speech that has now resolved. She will becadmitted for observation. Obtain MRI brain to rule out CVA. CTA shows nothing acute. Had echo 3 months ago and no cardiac changes so will refer on repeat. If suspect TIA, will escalate antiplatelet therapy to ASA and Plavix and recommend outpatient neurology follow up if she has not yet done that. Therapy services consulted.
[2018-10-17] MEDS ORDERED: Aspirin Chewable 81 MG TAB ONE (12:02)
[2018-10-17] MEDS ORDERED: Acetaminophen 325 MG TAB PO PRN (12:37)
[2018-10-17] MEDS ORDERED: Ondansetron PF 4 MG/2 ML Vial IVP PRN (12:37)
[2018-10-17] MEDS ORDERED: Ondansetron ODT 4 MG TAB PO PRN (12:37)
[2018-10-17 12:56] LABS: Bilirubin Negative (Negative); Blood, Urine Negative (Negative); Clarity CLEAR (Clear); Glucose, Urine (Dipstick) Negative (Negative); Leukocyte Negative (Negative); Nitrite Negative (Negative); Protein, Urine (Dipstick) Negative (Neg-Trace); Specific Gravity, Urine 1.028 (1.002-1.036); Urobilinogen 0.2 mg/dL (0.2-1.0)
[2018-10-17 14:23] VITALS: BMI 28.1
[2018-10-17] MEDS ORDERED: ISOVUE-370 76%-LOCM 1 ML ONE (16:49)
[2018-10-17] MEDS ORDERED: Atorvastatin Calcium 40 MG TAB PO SCH (21:00)
[2018-10-17] MEDS ORDERED: Melatonin 3 MG TAB PO SCH (21:00)
[2018-10-17] MEDS: Aggrenox 200-25mg CAP PO SCH (21:15)
[2018-10-18] MEDS ORDERED: Levothyroxine Sodium 100 MCG TAB PO SCH (06:00)
[2018-10-18] MEDS ORDERED: PROVENTIL INHALER 6.7 G (200 INHALATIONS) INH PRN (07:06)
--- NOTE | 2018-10-18 07:06 | PDOC.FM ---
- Subjective Subjective: PT denies any neuro sx this am; states her speech is improved. Eating breakfast. Feels well. - Objective MAR Reviewed: Yes Vital Signs & Weight: Vital Signs (12 hours) Temp Pulse Resp BP Pulse Ox 10/18/18 04:00 98.3 F 73 19 127/51 L 96 10/18/18 00:00 98.4 F 63 19 115/55 L 96 10/17/18 20:00 98.5 F 67 19 94/52 L 95 Weight Weight 79.1 kg I&O: 10/17/18 10/18/18 10/19/18 06:59 06:59 06:59 Intake Total 1000 Balance 1000 Result Diagrams: 10/17/18 10:36 10/17/18 10:36 Phys Exam - Physical Examination Constitutional: NAD HEENT: PERRLA, moist MMs Respiratory: no wheezing, no rales Cardiovascular: RRR, no significant murmur Gastrointestinal: soft, non-tender, no distention, positive bowel sounds Musculoskeletal: no edema, pulses present Neurological: non-focal, normal sensation, moves all 4 limbs Psychiatric: A&O x 3 Skin: no rash, normal turgor Dx/Plan (1) TIA (transient ischemic attack) Status: Suspected Qualifiers: Transient cerebral ischemia type: unspecified Qualified Code(s): G45.9 - Transient cerebral ischemic attack, unspecified (2) Hx TIA/stroke w/o resid Code(s): Z86.73 - PRSNL HX OF TIA (TIA), AND CEREB INFRC W/O RESID DEFICITS Status: Chronic (3) Hyperlipidemia Code(s): E78.5 - HYPERLIPIDEMIA, UNSPECIFIED Status: Chronic (4) Hypertension Code(s): I10 - ESSENTIAL (PRIMARY) HYPERTENSION Status: Chronic Qualifiers: Hypertension type: essential hypertension Qualified Code(s): I10 - Essential (primary) hypertension (5) Hypothyroid Code(s): E03.9 - HYPOTHYROIDISM, UNSPECIFIED Status: Chronic (6) Apraxia of speech Code(s): R48.2 - APRAXIA Status: Acute (7) CAD (coronary artery disease), [place] coronary artery Code(s): I25.10 - ATHSCL HEART DISEASE OF [place] CORONARY ARTERY W/O ANG PCTRS Status: Acute (8) GERD (gastroesophageal reflux disease) Code(s): K21.9 - GASTRO-ESOPHAGEAL REFLUX DISEASE WITHOUT ESOPHAGITIS Status: Chronic (9) History of tobacco abuse Code(s): Z87.891 - PERSONAL HISTORY OF NICOTINE DEPENDENCE Status: Acute - Plan Plan: 62 yo f with reported hx of CVA but no evidence of such on prior MRI here, and reported hx of TIAs, presents with slurred speech and lightheadedness since , admitted for suspected CVA vs TIA. Hosp day #2 #TIA vs CVA- DDX: conversion disorder -c/o slurred speech with PE findings of left sided decreased sensation to light touch and temp of face; all of which have now resolved -prior workup in 06/2018 which was negative for a CVA, also two prior workups in 2015 negative for CVA -Hd CT negative, CTA head and neck negative -ECHO in June showed EF of 55-60% and no vegetations -EKG today NSR -Lipid profile completed in June 2018 and she is currently on a high intensity statin -Admit to stroke, q4h neuro checks, brain MRI ordered -MRI pending, ok for dc if negative #HTN-we will allow for permissive hypertension with parameters to treat if bp is >225/120; head CT neg for acute hemorrhagic stroke; CTA head and neck negative as well #HLD-continue atorvastatin 80mg daily, will consider switching transition to aspirin and plavix, pending MRI results as pt has had recurrent episodes of suspected TIAs while on aggrenox #Bipolar D/O-continue wellbutrin and escitalopram #GERD-pantoprazole daily #CAD-hx of cath without stent placement; continue aggrenox currently, however d/ t recurrent TIAs, we may transition pt to aspirin and plavix; #Hx TIA vs CVA-no MRI evidence here of CVA, multiple workups for TIAs; continue high intensity statin, will consider switching transition to aspirin and plavix , pending MRI results as pt has had recurrent episodes of suspected TIAs while on aggrenox, mri pending this am #COPD-alb prn, asymptomatic currently #Hypothyroidism-tsh pending, continue levothyroxine #History of tobacco abuse-former tobacco user - 25 pack year hx - quit in 2015, CODE: full DVT: SCDs Diet: COLLIN Baez MD, PGY-2 Addendum - Attending - Attending Attestation Date/Time: 10/18/18 0759 I personally evaluated the patient and discussed the management with Dr. Martinez. I agree with the History, Examination, Assessment and Plan documented above with any addition or exceptions noted below. Patient's acute neuro symptoms resolved yesterday. She had possibly another TIA. Awaiting MRI this morning. Continue therapy services. If MRI negative, consider change from Aggrenox to ASA and Plavix and possible d/c home later today.
[2018-10-18] MEDS: Aggrenox 200-25mg CAP PO SCH (08:23)
[2018-10-18] MEDS ORDERED: Multivitamin W/ Minerals 1 TAB PO SCH (09:00)
[2018-10-18] MEDS ORDERED: Escitalopram Oxalate 20 mg Tablet PO SCH (09:00)
[2018-10-18] MEDS ORDERED: Folic Acid 1 MG TAB PO SCH (09:00)
[2018-10-18] MEDS ORDERED: Bupropion 150 MG XL TAB PO SCH (09:00)
[2018-10-18 11:46] VITALS: TEMP 98.8
--- NOTE | 2018-10-18 15:55 | MRI ---
BRAIN MRI WITHOUT CONTRAST: Date: 10-18-18 Comparison: 06-29-18 History: Slurred speech. Assess for acute infarction. Technique: Multiplanar, multisequence MR imaging of the brain obtained without contrast. FINDINGS: The diffusion weighted imaging demonstrates no evidence for acute infarction. Axial gradient echo cam ging demonstrates no significant blooming artifact to suggest intracranial hemorrhage. Arterial flow voids at the axial level of the skull base appear unremarkable on the T2 weighted imaging. There is opacification of a small maxillary sinus on the right suggesting chronic sinusitis. Imaged p aranasal sinuses/mastoid air cells otherwise unremarkable. Regional bone marrow signal intensity appe ars within normal limits. Stable degenerative changes of the atlantoaxial interspace. IMPRESSION: Stable brain MRI - no evidence for acute infarction or intracranial hemorrhage. POS: JUAN
[2018-10-19 10:11] VITALS: BP 106/57
== END 2018-10-18 14:47 | disposition home or self-care (01) ==
LOC: ERS 10:17 → 2SE 12:05
PROVIDERS: ADMIT Student in an Organized Health Care Education/Training Program; ATTEND Student in an Organized Health Care Education/Training Program
DX: R47.81 Slurred speech (principal); R42 Dizziness and giddiness; I25.10 Atherosclerotic heart disease of native coronary artery without angina pectoris; J44.9 Chronic obstructive pulmonary disease, unspecified; E03.9 Hypothyroidism, unspecified; E78.5 Hyperlipidemia, unspecified; G47.30 Sleep apnea, unspecified; F31.9 Bipolar disorder, unspecified; K21.9 Gastro-esophageal reflux disease without esophagitis; Z90.710 Acquired absence of both cervix and uterus; Z89.422 Acquired absence of other left toe(s); Z90.49 Acquired absence of other specified parts of digestive tract; Z90.89 Acquired absence of other organs; Z87.891 Personal history of nicotine dependence; Z86.73 Personal history of transient ischemic attack (TIA), and cerebral infarction without residual deficits; Z88.8 Allergy status to other drugs, medicaments and biological substances; Z79.82 Long term (current) use of aspirin; Z79.02 Long term (current) use of antithrombotics/antiplatelets; Z79.899 Other long term (current) drug therapy; Z98.890 Other specified postprocedural states
CPT/HCPCS: 70450; 70496; 70498; 70551; 80053; 81003; 82550; 82962; 84484; 85025; 93005; 97139; 99285; G0378 ×2; 36416; Q9966

== ENCOUNTER 2018-11-27 02:12 | Outpatient (CLI) | payer MEDICARE, MEDICAID ==
[2018-11-27 15:06] LABS: #Eosinphils 0.2 thou/uL (0.0-0.7); #Lymphocytes 1.6 thou/uL (1.20-3.40); #Monocytes 0.6 thou/uL (0.11-0.59); #Neutrophils 3.8 thou/uL (1.40-6.50); %Basophils 0.7 % (0.0-1.0); %Eosinophils 2.7 % (0.0-10.0); %Lymphocytes 25.9 % (21.0-51.0); %Monocytes 9.1 % (0.0-10.0); %Neutrophils 61.7 % (42.0-75.0); Hemoglobin 12.3 g/dL (12.0-16.0); Mean Corpuscular HGB CONC 33.1 g/dL (32.0-36.0); Mean Corpuscular Hemoglobin 34.1 pg (27.0-31.0); Mean Platelet Volume 7.2 fL (7.4-10.4); Platelet Count 217 thou/uL (130-400); RBC Distribution Width 10.9 % (11.5-14.5); White Blood Cell (WBC) Count 6.2 thou/uL (4.8-10.8)
[2018-11-27 15:23] LABS: Anion Gap 11 mmol/L (10-20); BUN (Urea Nitrogen) 24 mg/dL (9.8-20.1); Calc. Creatinine Clearance 0 mL/min (70-130); Calcium 9.7 mg/dL (7.8-10.44); Carbon Dioxide 26 mmol/L (23-31); Chloride 108 mmol/L (98-107); Estimated GFR-MDRD 46; Glucose 96 mg/dL (80-115); Potassium 4.3 mmol/L (3.5-5.1); Sodium 141 mmol/L (136-145)
== END 2018-11-27 02:13 | disposition home or self-care (01) ==
LOC: LABBT 02:12
PROVIDERS: ATTEND Orthopaedic Surgery
DX: Z01.818 Encounter for other preprocedural examination (principal); S83.241D Other tear of medial meniscus, current injury, right knee, subsequent encounter
CPT/HCPCS: 80048; 85025; 93005; 93010

== ENCOUNTER 2018-12-03 05:46 | Day surgery (SDC) | payer MEDICARE, MEDICAID ==
[2018-11-27 14:13] VITALS: BMI 27.7
[2018-12-03] MEDS ORDERED: PROPOFOL 20 ML ONE (06:50)
[2018-12-03] MEDS ORDERED: Fentanyl 100 MCG/2 ML VIAL ONE (07:24)
[2018-12-03] MEDS ORDERED: Bupivacaine HCl 0.5%/Epinephrine 1:200,000/PF 30 ml Vial ONE (15:13)
[2018-12-03] MEDS ORDERED: Lidocaine 2% w/Epinephrine 1:200K 20 ML VIAL ONE (15:13)
[2018-12-03] MEDS ORDERED: Dexamethasone 20 MG/5 ML VIAL ONE (15:32)
[2018-12-03] MEDS ORDERED: PROPOFOL 200 MG/20 ML VIAL ONE (15:32)
[2018-12-03] MEDS ORDERED: Ondansetron PF 4 MG/2 ML Vial ONE (15:32)
[2018-12-03] MEDS ORDERED: Lidocaine 1% PF 5 ML VIAL ONE (15:32)
--- NOTE | 2018-12-03 16:03 | OP ---
DATE OF PROCEDURE: 12/03/2018 PREOPERATIVE DIAGNOSIS: Medial meniscus tear, right knee. POSTOPERATIVE DIAGNOSIS: Medial meniscus tear, right knee. PROCEDURE PERFORMED: Arthroscopic partial medial meniscectomy. ANESTHESIA: General. ESTIMATED BLOOD LOSS: Minimal. SPECIMENS: None. DRAINS: None. COMPLICATIONS: None. DESCRIPTION OF PROCEDURE: The patient was taken to the operating room, where general anesthesia induced. Right leg was prepped and draped in usual sterile fashion. The scope was placed in the lateral portal, and probe was placed in the medial portal. 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 The complex tear of the posterior horn of the medial meniscus was debrided using basket forceps, smoothed using a 4-0 full radius resector. Meniscus was then probed, found to be stable. I irrigated the joint. I checked the gutters, intercondylar notch, the suprapatellar pouch confirmed there were no loose bodies. The knee was then drained. Sterile dressing was applied. Job ID: [id number]
== END 2018-12-03 10:46 | disposition home or self-care (01) ==
LOC: SDC 05:46
PROVIDERS: ATTEND Orthopaedic Surgery
PROC: 0SBC4ZZ Excision of Right Knee Joint, Percutaneous Endoscopic Approach (ICD-10-PCS; principal; 2018-12-03)
DX: S83.231A Complex tear of medial meniscus, current injury, right knee, initial encounter (principal); M94.261 Chondromalacia, right knee; E87.5 Hyperkalemia; E03.9 Hypothyroidism, unspecified; J44.9 Chronic obstructive pulmonary disease, unspecified; F17.210 Nicotine dependence, cigarettes, uncomplicated; F31.9 Bipolar disorder, unspecified; Z86.73 Personal history of transient ischemic attack (TIA), and cerebral infarction without residual deficits; Z79.02 Long term (current) use of antithrombotics/antiplatelets; Z79.82 Long term (current) use of aspirin; Z79.899 Other long term (current) drug therapy; Z88.8 Allergy status to other drugs, medicaments and biological substances
CPT/HCPCS: J0670; J0690; J1100; J2001; J2405; J2704; J3010

== ENCOUNTER 2018-12-29 19:31 | Emergency (ER) | payer MEDICARE, MEDICAID ==
[2018-12-29] MEDS ORDERED: Meclizine HCl 25 MG TAB ONE (20:20)
--- NOTE | 2018-12-29 20:36 | CT ---
CT Brain WO Con History: [Dizziness] Comparison: CT brain and MRI brain October 17, 2018 Findings: No acute hemorrhage or infarct. No midline shift or mass effect. Ventricular size and extra -axial CSF spaces are normal. Calvarium is intact. Impression: No acute intracranial abnormality. Unchanged exam.
[2018-12-29 20:46] LABS: #Basophils 0.1 thou/uL (0.0-0.2); #Eosinphils 0.2 thou/uL (0.0-0.7); #Lymphocytes 1.5 thou/uL (1.20-3.40); #Monocytes 0.6 thou/uL (0.11-0.59); #Neutrophils 2.8 thou/uL (1.40-6.50); %Basophils 1.2 % (0.0-1.0); %Eosinophils 3.2 % (0.0-10.0); %Lymphocytes 29.2 % (21.0-51.0); %Monocytes 11.8 % (0.0-10.0); %Neutrophils 54.6 % (42.0-75.0); Hemoglobin 11.2 g/dL (12.0-16.0); Mean Corpuscular HGB CONC 34.1 g/dL (32.0-36.0); Mean Corpuscular Hemoglobin 35.4 pg (27.0-31.0); Mean Platelet Volume 6.8 fL (7.4-10.4); Platelet Count 204 thou/uL (130-400); RBC Distribution Width 10.3 % (11.5-14.5); Red Blood Cell (RBC) Count 3.17 mill/uL (4.20-5.40); White Blood Cell (WBC) Count 5.1 thou/uL (4.8-10.8)
[2018-12-29 21:10] LABS: ALT (SGPT) 15 U/L (8-55); AST (SGOT) 16 U/L (5-34); Albumin 3.6 g/dL (3.4-4.8); Alkaline Phosphatase 56 U/L (40-150); Anion Gap 11 mmol/L (10-20); BUN (Urea Nitrogen) 21 mg/dL (9.8-20.1); Bilirubin, Total 0.3 mg/dL (0.2-1.2); Calc. Creatinine Clearance 0 mL/min (70-130); Calcium 9.2 mg/dL (7.8-10.44); Carbon Dioxide 25 mmol/L (23-31); Chloride 107 mmol/L (98-107); Estimated GFR-MDRD 50; Globulin 2.2 g/dL (2.4-3.5); Glucose 90 mg/dL (80-115); Potassium 3.9 mmol/L (3.5-5.1); Protein, Total 5.8 g/dL (6.0-8.3); Sodium 139 mmol/L (136-145)
== END 2018-12-29 22:37 | disposition home or self-care (01) ==
LOC: ERS 19:31
DX: R42 Dizziness and giddiness (principal); E03.9 Hypothyroidism, unspecified; E78.5 Hyperlipidemia, unspecified; G47.30 Sleep apnea, unspecified; Z86.73 Personal history of transient ischemic attack (TIA), and cerebral infarction without residual deficits; J44.9 Chronic obstructive pulmonary disease, unspecified; F41.9 Anxiety disorder, unspecified; F31.9 Bipolar disorder, unspecified; Z87.891 Personal history of nicotine dependence; I95.89 Other hypotension; Z79.899 Other long term (current) drug therapy; Z79.82 Long term (current) use of aspirin; Z79.51 Long term (current) use of inhaled steroids
CPT/HCPCS: 36415; 70450; 80053; 85025; 93005; J8499

== ENCOUNTER 2019-09-13 21:52 | Observation (INO) | payer MEDICARE, MEDICAID ==
[2019-09-13 22:17] LABS: #Basophils 0.1 thou/uL (0.0-0.2); #Eosinphils 0.2 thou/uL (0.0-0.7); #Lymphocytes 2.1 thou/uL (1.20-3.40); #Monocytes 0.6 thou/uL (0.11-0.59); #Neutrophils 3.8 thou/uL (1.40-6.50); %Basophils 1.3 % (0.0-1.0); %Eosinophils 3.1 % (0.0-10.0); %Lymphocytes 30.1 % (21.0-51.0); %Monocytes 9.3 % (0.0-10.0); %Neutrophils 56.2 % (42.0-75.0); Mean Corpuscular HGB CONC 33.3 g/dL (32.0-36.0); Mean Corpuscular Hemoglobin 34.4 pg (27.0-31.0); Mean Platelet Volume 6.9 fL (7.4-10.4); Platelet Count 246 thou/uL (130-400); RBC Distribution Width 10.8 % (11.5-14.5); Red Blood Cell (RBC) Count 3.78 mill/uL (4.20-5.40); White Blood Cell (WBC) Count 6.8 thou/uL (4.8-10.8)
[2019-09-13 22:37] LABS: ALT (SGPT) 15 U/L (8-55); AST (SGOT) 16 U/L (5-34); Alkaline Phosphatase 59 U/L (40-110); Anion Gap 11 mmol/L (10-20); BUN (Urea Nitrogen) 12 mg/dL (9.8-20.1); Bilirubin, Total 0.5 mg/dL (0.2-1.2); CK (CPK) 128 U/L (29-168); Calc. Creatinine Clearance 0 mL/min (70-130); Calcium 8.9 mg/dL (7.8-10.44); Carbon Dioxide 28 mmol/L (23-31); Chloride 106 mmol/L (98-107); Estimated GFR-MDRD 49; Globulin 2.3 g/dL (2.4-3.5); Glucose 67 mg/dL (80-115); Protein, Total 6.3 g/dL (6.0-8.3); Sodium 141 mmol/L (136-145)
[2019-09-14] MEDS: Sodium Chloride 0.9% 1,000 ML IV SCH ×4 (03:10→19:54)
[2019-09-14 03:41] VITALS: BMI 29.3
[2019-09-14] MEDS ORDERED: Ondansetron PF 4 MG/2 ML Vial IVP PRN (03:46)
[2019-09-14] MEDS ORDERED: Acetaminophen 325 MG TAB PO PRN (03:46)
--- NOTE | 2019-09-14 04:21 | HP ---
PRIMARY CARE PROVIDER: Marilyn Mckeon MD, at [facility]. CHIEF COMPLAINT: Dizziness. HISTORY OF PRESENT ILLNESS: Ms. Manzanares is a pleasant 63-year-old lady, who was seen at [facility] on September 14, 2019. She reports that she has a history of chronic dizziness over several months. She reports that it became worse yesterday. She was walking into [place] yesterday. She also reports blurry vision in both eyes over the last several months. She reports that she saw her sports equipment repairer, Dr. Costello for the symptoms of dizziness. She was told to wear compression socks. She denies any fevers or chills. She denies any chest pain. She denies any shortness of breath. She denies any nausea, vomiting, or diarrhea. She denies any abdominal pain. REVIEW OF SYSTEMS: All systems were reviewed and found to be negative except for the pertinent positives mentioned above. PAST MEDICAL HISTORY: Angina, hypothyroidism, dyslipidemia, obstructive sleep apnea syndrome, since resolved, TIA x5, CVA without deficits, COPD, and chronic hypotension. PAST SURGICAL HISTORY: Hysterectomy, 4th toe removal on left foot, cholecystectomy, bilateral shoulder surgery, tonsillectomy, and right knee surgery. PSYCHIATRIC HISTORY: Anxiety, bipolar disorder, major depression. SOCIAL HISTORY: The patient denies tobacco use, alcohol use, or recreational drug use. FAMILY HISTORY: No family history of premature coronary artery disease. ALLERGIES: DESYREL, ELAVIL. CURRENT MEDICATIONS: 1. Aspirin 81 mg daily. 2. Pantoprazole 20 mg daily. 3. Escitalopram 20 mg daily. 4. Atorvastatin 80 mg at bedtime. 5. Levothyroxine 100 mcg daily. 6. Bupropion 300 mg at bedtime. 7. Clonazepam 0.5 mg 2 times a day. 8. Folic acid 0.8 mg daily. 9. Melatonin 10 mg at bedtime. 10. Vitamin D3 Complete 1 tablet daily. 11. Divalproex 250 mg at bedtime. 12. Ranexa 500 mg 2 times a day. PHYSICAL EXAMINATION: GENERAL: On examination, Ms. Manzanares is awake and alert, not in acute distress. VITAL SIGNS: Blood pressure is 102/61, pulse 72, respiratory rate 18, and oxygen saturation 96% on room air. She is afebrile. Emergency room physician reported to me that she had significant orthostatic hypotension. EYES: No scleral icterus, no conjunctival pallor. ENT: Moist mucosal membranes. No oropharyngeal erythema or exudates. External ear exam unremarkable. NECK: Supple, nontender, trachea is midline. RESPIRATORY: Accessory muscles of breathing are not active. Chest wall movements are symmetric bilaterally. Lungs are clear to auscultation without wheeze, rhonchi, or crepitations. CARDIOVASCULAR: S1 and S2 are heard, regular. Peripheral pulses palpable. ABDOMEN: Soft, nontender, bowel sounds are heard. NEUROLOGIC: Cranial nerves 2 through 12 are intact. No focal motor or sensory deficits. Deep tendon reflexes 2+, plantars downgoing bilaterally. SKIN: No rashes. LYMPHATIC: No cervical lymphadenopathy. PSYCHIATRIC: Normal mood, normal affect, the patient is oriented to person, place, and time. LABORATORY DATA: The patient's labs and investigations were reviewed. I reviewed her electrocardiogram, which shows normal sinus rhythm, no ST changes to suggest an acute coronary syndrome. I also reviewed her noncontrast CT scan of the brain, which does not show any acute intracranial abnormality. She has normal white count, normal hemoglobin, normal platelet count, elevated creatinine of 1.13, last known creatinine 1.10 on December 29, 2018, otherwise unremarkable comprehensive metabolic profile and normal TSH. Cortisol is pending. Valproic acid level is low at 13.1. ASSESSMENT AND PLAN: Ms. Manzanares is a pleasant 63-year-old lady, who was seen at [facility] on September 14, 2019. Her problem list includes: 1. Dizziness: Most likely secondary to orthostatic hypotension. She reports that she gets these episodes of dizziness only while standing up. She is learning how to stand up slowly in stages. I will admit her to the hospital for observation. I will start her on a trial of midodrine. We will recheck her orthostatic vitals. History is less consistent with benign positional vertigo. We will also apply JARROD dunbar. We will consult PT for evaluation and treatment. 2. Dyslipidemia: Continue atorvastatin. 3. Hypothyroidism: TSH is normal, continue levothyroxine. 4. History of angina: Continue Ranexa. 5. Subtherapeutic divalproex level: The patient reports that she is taking divalproex for mood stabilization. She will be advised to follow up with her primary care provider. 6. Depression: Appears to be moderate and stable. Many thanks for allowing me to participate in your patient's care. Please feel free to contact me with any questions or concerns. LEVEL OF RISK: High. LEVEL OF COMPLEXITY: High. Job ID: [id number] MTDD
--- NOTE | 2019-09-14 07:32 | CT ---
Final interpretation Head CT without contrast: 09/14/2019 COMPARISON: 12/29/2018 HISTORY: Worsening dizziness with altered mental status FINDINGS: The maxillary sinus on the right is small and opacified. There is a perforation of the nasa l septum. No displaced calvarial fracture, intracranial hemorrhage, midline shift, or mass effect. IMPRESSION: Stable head CT. Incidental findings as detailed above. No acute intracranial abnormality. Code QA a.
[2019-09-14] MEDS ORDERED: Midodrine HCl 5 MG TAB PO SCH (09:00)
[2019-09-14] MEDS ORDERED: Enoxaparin Sodium 40 MG/0.4 ML SYRINGE SC SCH (09:00)
[2019-09-14 15:50] VITALS: TEMP 98.7
[2019-09-14 15:59] VITALS: BP 107/52
--- NOTE | 2019-09-15 15:26 | DIS ---
DATE OF ADMISSION: 09/14/2019 DATE OF DISCHARGE: 09/14/2019 HOSPITAL COURSE: Ms. Manzanares is a 63-year-old female, who presented with chronic dizziness. The patient has been suffering from dizziness mostly when changing from supine or sitting position to standing position for the past couple of months. She was diagnosed with orthostatic postural hypotension and was supplemented with fluid. On the second hospital day, the patient's dizziness improved and orthostatics were negative. Medications were reviewed with the patient and her , and she was on four different medications that are known to cause dizziness. The patient was advised to discuss these medications and possible alternatives with her physicians so to improve her dizziness symptoms. On the day of discharge, the patient was hemodynamically stable and could walk across the hospital floor without symptoms of dizziness. PHYSICAL EXAMINATION: GENERAL: She was in no distress. Alert and oriented x3. HEENT: Eye exam was PERRL. CARDIAC: Regular rate and rhythm. ABDOMEN: Soft, nontender. Bowel sounds were normal. NEUROLOGIC: Intact cranial nerves. No focal motor or sensory deficits. Deep tendon reflexes were 2+ throughout. SKIN: No rashes or lesions. PSYCHIATRIC: Normal mood. Normal affect. Oriented to person, place, and time. MUSCULAR: 5/5 strength throughout. EXTREMITIES: Flexion and extension. ASSESSMENT AND PLAN: This is a 63-year-old lady, who presented with orthostatic hypotension and polypharmacy induced dizziness. 1. Dizziness. Underlying etiology likely due to orthostatic hypotension and polypharmacy. Orthostatic hypotension resolved after the patient received intravenous fluids. The patient's medications were reviewed with her and her in order to with her outpatient physicians, in order to resolve her dizziness. 2. Otherwise, additional studies including cardiac and infectious workups were negative. 3. Hypothyroidism. TSH was normal, so levothyroxine was continued at home dose. 4. Depression and mood instability. The patient was taking divalproex and escitalopram as well as bupropion, all of which are known to be frequent causes of dizziness. The patient was advised to discuss these medications and their alternatives with her outpatient physicians. Job ID: [id number]
== END 2019-09-14 19:50 | disposition home or self-care (01) ==
LOC: ERS 21:52 → 2NO 09-14 01:36
PROVIDERS: ADMIT Internal Medicine; ATTEND Internal Medicine
DX: R42 Dizziness and giddiness (principal); T50.915A Adverse effect of multiple unspecified drugs, medicaments and biological substances, initial encounter; I95.1 Orthostatic hypotension; E78.5 Hyperlipidemia, unspecified; E03.9 Hypothyroidism, unspecified; F31.9 Bipolar disorder, unspecified; F41.9 Anxiety disorder, unspecified; G47.33 Obstructive sleep apnea (adult) (pediatric); J44.9 Chronic obstructive pulmonary disease, unspecified; Z86.73 Personal history of transient ischemic attack (TIA), and cerebral infarction without residual deficits; Z79.82 Long term (current) use of aspirin; Z79.899 Other long term (current) drug therapy; Z88.8 Allergy status to other drugs, medicaments and biological substances
CPT/HCPCS: 36415; 36416; 70450; 80053; 80164; 82533; 82550; 84443; 84484; 85025; 93005; 96360; 96372; G0378; J1650

== ENCOUNTER 2019-11-10 22:07 | Observation (INO) | payer MEDICARE, MEDICAID ==
--- NOTE | 2019-11-10 22:33 | RAD ---
Portable chest: HISTORY: Chest pain COMPARISON: 02/16/2018 FINDINGS: Lung albarado are clear. Heart and mediastinum appear unremarkable. Vascularity is normal. Visualized osseous structures unremarkable. IMPRESSION: No acute finding
[2019-11-10 22:44] LABS: #Eosinphils 0.2 thou/uL (0.0-0.7); #Lymphocytes 1.8 thou/uL (1.20-3.40); #Monocytes 0.5 thou/uL (0.11-0.59); #Neutrophils 3.2 thou/uL (1.40-6.50); %Basophils 0.7 % (0.0-1.0); %Eosinophils 3.8 % (0.0-10.0); %Lymphocytes 31.6 % (21.0-51.0); %Monocytes 8.5 % (0.0-10.0); %Neutrophils 55.5 % (42.0-75.0); Hemoglobin 11.4 g/dL (12.0-16.0); Mean Corpuscular HGB CONC 34.3 g/dL (32.0-36.0); Mean Corpuscular Hemoglobin 35.3 pg (27.0-31.0); Mean Platelet Volume 7.1 fL (7.4-10.4); Platelet Count 229 thou/uL (130-400); RBC Distribution Width 10.7 % (11.5-14.5); Red Blood Cell (RBC) Count 3.23 mill/uL (4.20-5.40); White Blood Cell (WBC) Count 5.8 thou/uL (4.8-10.8)
[2019-11-10] MEDS ORDERED: Aspirin Chewable 81 MG TAB ONE (23:07)
[2019-11-10 23:22] LABS: ALT (SGPT) 13 U/L (8-55); AST (SGOT) 17 U/L (5-34); Albumin 3.6 g/dL (3.4-4.8); Alkaline Phosphatase 53 U/L (40-110); Anion Gap 12 mmol/L (10-20); BUN (Urea Nitrogen) 13 mg/dL (9.8-20.1); Bilirubin, Total 0.4 mg/dL (0.2-1.2); Calc. Creatinine Clearance 0 mL/min (70-130); Calcium 8.9 mg/dL (7.8-10.44); Carbon Dioxide 26 mmol/L (23-31); Chloride 108 mmol/L (98-107); Estimated GFR-MDRD 49; Globulin 2.3 g/dL (2.4-3.5); Glucose 81 mg/dL (80-115); Potassium 4.3 mmol/L (3.5-5.1); Protein, Total 5.9 g/dL (6.0-8.3); Sodium 142 mmol/L (136-145)
[2019-11-10 23:53] LABS: Bacteria/HPF 4+ HPF (None Seen); Bilirubin Negative (Negative); Blood, Urine Negative (Negative); Clarity Clear (Clear); Glucose, Urine (Dipstick) Normal (Negative); Leukocyte 25 Leu/uL (Negative); Nitrite Negative (Negative); Protein, Urine (Dipstick) Negative (Neg-Trace); RBC/HPF 0-3 HPF (0-3); Squamous Epithelial 0-3 HPF (0-3); Urobilinogen Normal mg/dL (Less than 2); WBC/HPF 0-3 HPF (0-3)
[2019-11-10] MEDS ORDERED: Fentanyl 100 MCG/2 ML VIAL ONE (23:54)
[2019-11-11] MEDS ORDERED: Acetaminophen 325 MG TAB PO PRN (01:07)
[2019-11-11] MEDS ORDERED: Ondansetron ODT 4 MG TAB SL PRN (01:07)
[2019-11-11] MEDS ORDERED: Ondansetron PF 4 MG/2 ML Vial IVP PRN (01:07)
[2019-11-11] MEDS ORDERED: Lactated Ringer's 1,000 ML IV SCH (01:07)
[2019-11-11 01:17] VITALS: BMI 29.3
[2019-11-11] MEDS ORDERED: Fluticasone Propionate Nasal Spray 16 gm Bottle NASAL PRN (01:52)
[2019-11-11] MEDS ORDERED: Nitroglycerin 0.4 MG TAB (25 Tab Bottle) PO PRN (01:56)
[2019-11-11] MEDS ORDERED: ALBUTEROL SULFATE IH PRN (02:00)
[2019-11-11] MEDS ORDERED: Divalproex Sodium 125 mg Sprinkle Capsule PO SCH ×2 (02:00→21:00)
[2019-11-11] MEDS ORDERED: clonazePAM 0.5 MG TAB PO SCH ×2 (02:00→09:00)
[2019-11-11 02:39] LABS: Troponin I Less than 0.010 ng/mL (< 0.028)
[2019-11-11 04:34] LABS: Cardiac Risk 2.7 (Less than 4.5)
[2019-11-11 04:50] LABS: Troponin I Less than 0.010 ng/mL (< 0.028)
[2019-11-11] MEDS ORDERED: Levothyroxine Sodium 100 MCG TAB PO SCH (06:00)
[2019-11-11] MEDS ORDERED: Magnesium 2 GM/50 ML 2 GM in Premix Bag 1 BAG IVPB SCH (07:30)
--- NOTE | 2019-11-11 08:40 | HP ---
TIME OF ASSESSMENT: 0100 CHIEF COMPLAINT: Left-sided chest pain. HISTORY OF PRESENT ILLNESS: Ms. Manzanares is a 63-year-old woman who presents to the emergency department with complaints of left-sided chest pain that started while she was sitting at home watching TV. The patient states the pain was a 7/10 in severity, described as a sharp pain which radiated to her left arm. The patient reports taking two nitroglycerins which brought her pain down to a 5/10 in severity. She reports having issues with chest pain in the past. States her vocational rehabilitation teacher is Dr. Costello, who actually performed a stress test less than 1 year ago in her office and was told the stress test was normal. She apparently had a heart cath in April 2015 and was found to have single-vessel coronary artery disease with a stenosis of 50% to 75% in the mid left anterior descending artery with plaque formation in the proximal left anterior descending artery. No stent was placed. Her last echo on file here was done in June 2018, which showed an EF of 55% to 60% with mild tricuspid regurgitation and trace mitral regurgitation present. REVIEW OF SYSTEMS: The patient states she has not experienced any recurring chest pain since arriving to the floor. She is completely asymptomatic at present. Denies any associated nausea, vomiting, or diaphoresis. Does report having left lower quadrant abdominal discomfort that has been constant and complains of black soft stools for the last month. Denies any bright red blood per rectum. She states she did start taking Pepto-Bismol, but only two months ago. Her signal constructor is Dr. Jacobs. Denies having any lightheadedness or dizziness. No complaints of hematemesis. EMERGENCY DEPARTMENT COURSE: In the emergency department, the patient underwent an EKG, which demonstrated a normal sinus rhythm with a heart rate of 71. She had no ST changes or T-wave abnormalities. She underwent laboratory studies Including a troponin which was negative. Urinalysis was done and showed 4+ bacteria, otherwise negative. White count was 5.8, hemoglobin 11.4, hematocrit 33.2, platelets 229, and neutrophils 55.5%. Sodium 142, potassium 4.3, BUN 13, creatinine 1.12, and GFR 49. LFTs unremarkable. TSH normal. Chest x-ray done showed no acute findings. In the emergency department, she was given 162 mg of aspirin and 25 mcg of Fentanyl. PAST MEDICAL HISTORY: 1. Hypothyroidism. 2. CAD. 3. Hyperlipidemia. 4. Chronic hypotension. 5. Sleep apnea. 6. History of TIA. 7. CVA without residual deficits. 8. COPD. 9. Anxiety. 10. Bipolar disorder. 11. Major depression, requiring inpatient psychiatric admissions in the past, last one in November 2016. PAST SURGICAL HISTORY: 1. Hysterectomy. 2. Removal of left fourth toe. 3. Cholecystectomy. 4. Bilateral shoulder surgery. 5. Tonsillectomy. 6. Right knee surgery. SOCIAL HISTORY: Patient lives with family. Denies any alcohol consumption or illicit drug use. Denies any tobacco use. She quit smoking in 2016. ALLERGIES: TRAZODONE AND AMITRIPTYLINE. CURRENT MEDICATIONS: 1. Aspirin. 2. Metoprolol. 3. Escitalopram. 4. Atorvastatin. 5. Levothyroxine. 6. Bupropion. 7. Clonazepam. 8. Folic acid. 9. Melatonin. 10. Vitamin D3. 11. Divalproex. 12. Ranolazine. 13. Plavix. PHYSICAL EXAMINATION: GENERAL: Patient appears well developed, well nourished, is in no acute distress. She is resting comfortably in bed and asymptomatic. VITAL SIGNS: Temperature 97.9, pulse 49, respirations 16, O2 saturation 97% on room air, and blood pressure 171/72. HEENT: Normocephalic and atraumatic. Pupils are equal, round, and reactive to light without scleral icterus. Oropharynx is clear. NECK: Supple. LUNGS: Clear to auscultation bilaterally without any wheezes, rales, or rhonchi. CARDIAC: Regular rate and rhythm. No reproducible chest pain with palpation on exam. ABDOMEN: Soft, nondistended. There is some mild discomfort in the left lower quadrant with deep palpation but no guarding or rigidity. No renal angle tenderness. EXTREMITIES: No lower leg swelling or edema. Peripheral pulses present and equal bilaterally. SKIN: Warm and dry. INVESTIGATIONS: As mentioned above in HPI. IMPRESSION AND PLAN: Ms. Manzanares is a pleasant 63-year-old woman, who has presented to emergency department with complaints of left-sided chest pain that radiated to the left arm, that came on suddenly while she was watching TV. She is being admitted for management of the followin. Acute coronary syndrome rule out. Patient with known coronary artery disease, who had a catheterization in 2015 and findings as mentioned above in HPI. Patient states she had a stress test done less than [address] Costello' office and was told it was normal. Consultation has been placed to Dr. Costello given normal stress test and patient request. We will continue to trend troponins. Patient continues to be asymptomatic at present. 2. Black stools. Fecal occult blood test is negative. Hemoglobin is 11.7. Patient states she is known to Dr. Jacobs. We will continue to monitor H and H. This has been going on for the last month. Day Team to decide if there is need for any GI consultation or workup as an inpatient. 3. Chronic hypotension. We will resume home medications once verified. Blood pressure on the higher side at present. 4. Hypothyroidism. Resume home medications once verified. 5. Hyperlipidemia. Resume home medications once verified. 6. Gastrointestinal prophylaxis. We will give Protonix. 7. Deep venous thrombosis prophylaxis. Patient is ambulatory. 8. Code status. Full. Surrogate decision maker is her , Gonsalo Steel. Case is discussed with attending who agrees upon care as described above. Job ID: [id number]
[2019-11-11] MEDS ORDERED: Clopidogrel Bisulfate 75 MG TAB PO SCH (09:00)
[2019-11-11] MEDS ORDERED: Aspirin 81 mg Enteric Coated Tablet PO SCH ×2 (09:00)
[2019-11-11] MEDS ORDERED: Bupropion 150 MG XL TAB PO SCH (09:00)
[2019-11-11] MEDS ORDERED: Folic Acid 1 MG TAB PO SCH (09:00)
[2019-11-11] MEDS ORDERED: Escitalopram Oxalate 10 mg Tablet PO SCH (09:00)
[2019-11-11] MEDS: Midodrine HCl 5 MG TAB PO SCH ×2 (09:43→15:14)
--- NOTE | 2019-11-11 13:53 | NM ---
EXAM: NM Cardiac Stress W EF WF PROVIDED CLINICAL HISTORY: Chest pain COMPARISON: 07/28/2010 FINDINGS: There is no significant reversible defect seen between the stress and resting acquisitions. Quantitat avery analysis also shows no significant reversible defect. Gated images show minimal hypokinesis involving the septum. Normal ventricular wall thickening is present. Calculated left ventricular ejec tion fraction is 73%. Left ventricular ejection fraction on prior study in 2009 was 60%. IMPRESSION: 1. Normal myocardial perfusion study without evidence of a significant reversible defect seen to sugg est ischemia. 2. Normal LVEF of 73%.
[2019-11-11] MEDS ORDERED: Regadenoson 0.4 MG/5 ML SYRINGE ONE (15:14)
[2019-11-11 15:28] VITALS: BP 98/50; TEMP 97.8
--- NOTE | 2019-11-11 20:08 | DIS ---
DATE OF ADMISSION: 11/11/2019 DATE OF DISCHARGE: 11/11/2019 DISCHARGE DIAGNOSES: As of the following, 1. Chest pain. 2. Hypothyroidism. 3. Hyperlipidemia. 4. Dark stools. HOSPITAL COURSE: The patient is a very pleasant 63-year-old female, who presents to the hospital with complaints of chest pain. At this time, she was seen by Dr. Costello and underwent a stress test which was negative. D-dimer was negative. Her stool for occult blood was negative. Her H and H were stable. She was discharged home and she was advised not to take any ibuprofen. She will follow up with her primary care. MEDICATIONS: Her medications will be continued and they are the following, 1. Melatonin 10 mg at bedtime. 2. Clonazepam 0.5 mg b.i.d. 3. Atorvastatin 80 mg at bedtime. 4. Folic acid 0.8 daily. 5. Aspirin 81 mg daily. 6. Plavix 75 mg daily. 7. Midodrine 2.5 t.i.d. 8. Levothyroxine 100 mcg daily. 9. Ranexa 500 mg b.i.d. 10. Depakote 125 mg at bedtime. 11. Wellbutrin 300 mg q.a.m. 12. Citalopram 10 mg daily. 13. Protonix 20 mg q.a.m. PHYSICAL EXAMINATION: VITAL SIGNS: Temperature 97.8, pulse 65, respirations 16, 97% on room air, blood pressure 115/57. GENERAL: She is awake, alert and oriented x3. Does not appear in distress. CV: S1, S2 present. No murmurs, rubs, or gallops. The patient was found to have low magnesium. Her magnesium was replaced and this had resolved. Job ID: [id number]
[2019-11-11] MEDS ORDERED: Atorvastatin Calcium 40 MG TAB PO SCH (21:00)
--- NOTE | 2019-11-12 08:31 | CON ---
DATE OF CONSULTATION: 11/11/2019 ADDENDUM: INDICATION FOR CONSULTATION: A 63-year-old female with history of known coronary artery disease, presented with sharp stabbing chest pain underneath the left anterior chest wall underneath breast area. She said she took a nitroglycerin. It did not explicitly help the pain, maybe a little bit. She took another one, she still had some discomfort, and she decided to come to the emergency room. She did undergo a cardiac catheterization approximately 5 years ago and was found to have some distal left anterior descending artery stenosis about 50% to 75%, but FFR was 0.86, not compatible with physiological flow restriction. She also had some plaque in the proximal left anterior descending artery, but she had a normal left circumflex and normal right coronary artery. She underwent a stress test today, which showed no evidence of ischemia. She also had a negative stress test in 2018, which showed no evidence of underlying ischemia. At this time, her enzymes are remaining negative. EKG is unremarkable. Stress test is negative. The only abnormality noted was that she did have a urinary tract infection, but she is asymptomatic with the urinary tract infection, and her WBC is only 5.8. She did tell me she is having some dark stools, but she will just take this up with the rotary cutter feeder. Her hemoglobin is stable at 11.4. From my perspective, I would agree with the assessment and plan by the nurse practitioner, but she should be stable for discharge to home, and we will see her back in the office in the next 2 to 4 weeks or actually the next month or so depending on how she does over the next 1 to 2 weeks. Job ID: [id number]
--- NOTE | 2019-11-13 13:46 | EKG ---
Test Reason : Blood Pressure : / mmHG Vent. Rate : 071 BPM Atrial Rate : 071 BPM P-R Int : 140 ms QRS Dur : 078 ms QT Int : 404 ms P-R-T Axes : 034 -22 039 degrees QTc Int : 439 ms Normal sinus rhythm Minimal voltage criteria for LVH, may be normal variant Borderline ECG Confirmed by ZULMA Peters, NANCI ([id number]), avid editor MEDARDO VAZQUEZ ([id number]) on 11/13/2019 1:46:24 PM Referred By: Confirmed By:NANCI MAYA M.D.
== END 2019-11-11 17:12 | disposition home or self-care (01) ==
LOC: ERS 22:07 → 2SW 11-11 00:18
PROVIDERS: ADMIT Internal Medicine; ATTEND Internal Medicine
DX: R07.9 Chest pain, unspecified (principal); I25.10 Atherosclerotic heart disease of native coronary artery without angina pectoris; E03.9 Hypothyroidism, unspecified; E78.5 Hyperlipidemia, unspecified; K92.1 Melena; I95.89 Other hypotension; G47.30 Sleep apnea, unspecified; J44.9 Chronic obstructive pulmonary disease, unspecified; F41.9 Anxiety disorder, unspecified; F31.9 Bipolar disorder, unspecified; Z79.02 Long term (current) use of antithrombotics/antiplatelets; Z79.82 Long term (current) use of aspirin; Z79.899 Other long term (current) drug therapy; Z86.73 Personal history of transient ischemic attack (TIA), and cerebral infarction without residual deficits; Z88.8 Allergy status to other drugs, medicaments and biological substances
CPT/HCPCS: 36415; 71045; 78452; 80053; 80061; 81003; 81015; 82274; 83735; 83880; 84443; 84484; 85025; 85379; 93005; 93017; 94760; 96365; 96374; 96375; A9500; G0378; J2785; J3010; J3475

== ENCOUNTER 2020-04-19 13:21 | Outpatient (CLI) | payer MEDICARE, MEDICAID ==
[2020-04-19] MEDS ORDERED: Iopamidol-370 76% 500 ML 1 ML ONE (14:15)
--- NOTE | 2020-04-19 14:16 | CT ---
CT of abdomen and pelvis: 04/19/2020 COMPARISON: 05/27/2018 HISTORY: Lower abdominal pain, primarily involving the right lower quadrant. TECHNIQUE: Axial CT imaging at 5 mm intervals from the lung bases through the pubic symphysis with in travenous and oral contrast. Coronal and sagittal reformatted imaging obtained. FINDINGS: The visualized lung bases are unremarkable. No free intraperitoneal air or fluid is seen. C holecystectomy clips are present. No focal liver lesion is noted. The spleen, pancreas, adrenal glands, and kidneys demonstrate no acut e findings. The appendix is unremarkable. There is mild wall prominence of the colon involving the sigmoid colon and the descending colon. No d efinite associated inflammatory fat stranding is seen. There is no evidence for bowel obstruction. There is scattered atherosclerotic calcification of the abdominal aorta and its branches. No abdominal or pelvic lymphadenopathy is noted. Lower lumbar spine facet hypertrophic changes are present. There is no worrisome lytic or blastic bon e lesion. IMPRESSION: Mild wall prominence of the descending colon and sigmoid colon without adjacent inflammat ory fat stranding. Underdistention is favored over mild nonspecific colitis. There is no evidence for bowel obstruction, free intraperitoneal air, or appendicitis.
== END 2020-04-19 13:22 | disposition home or self-care (01) ==
LOC: BICCT 13:21
PROVIDERS: ATTEND Family Medicine
DX: R10.31 Right lower quadrant pain (principal); K63.89 Other specified diseases of intestine
CPT/HCPCS: 74177; 82565; Q9967

== ENCOUNTER 2020-08-08 09:04 | Inpatient (IN) | payer MEDICARE, MEDICAID ==
[2020-08-08 09:40] LABS: #Eosinphils 0.3 thou/uL (0.0-0.7); #Lymphocytes 1.4 thou/uL (1.20-3.40); #Monocytes 0.5 thou/uL (0.11-0.59); #Neutrophils 3.4 thou/uL (1.40-6.50); %Basophils 0.5 % (0.0-1.0); %Eosinophils 5.3 % (0.0-10.0); %Lymphocytes 25.1 % (21.0-51.0); %Monocytes 8.6 % (0.0-10.0); %Neutrophils 60.5 % (42.0-75.0); Hemoglobin 12.1 g/dL (12.0-16.0); Mean Corpuscular HGB CONC 33.7 g/dL (32.0-36.0); Mean Platelet Volume 6.8 fL (7.4-10.4); Platelet Count 223 thou/uL (130-400); RBC Distribution Width 10.8 % (11.5-14.5); Red Blood Cell (RBC) Count 3.46 mill/uL (4.20-5.40); White Blood Cell (WBC) Count 5.6 thou/uL (4.8-10.8)
[2020-08-08] MEDS ORDERED: Iopamidol-370 76% 500 ML 1 ML ONE (09:42)
[2020-08-08 10:01] LABS: ALT (SGPT) 11 U/L (8-55); AST (SGOT) 14 U/L (5-34); Albumin 3.8 g/dL (3.4-4.8); Alkaline Phosphatase 42 U/L (40-110); Anion Gap 14 mmol/L (10-20); BUN (Urea Nitrogen) 16 mg/dL (9.8-20.1); Bilirubin, Total 0.6 mg/dL (0.2-1.2); Calc. Creatinine Clearance 0 mL/min (70-130); Calcium 8.9 mg/dL (7.8-10.44); Carbon Dioxide 25 mmol/L (23-31); Chloride 106 mmol/L (98-107); Globulin 2.3 g/dL (2.4-3.5); Glucose 90 mg/dL (80-115); Potassium 3.9 mmol/L (3.5-5.1); Protein, Total 6.1 g/dL (6.0-8.3); Sodium 141 mmol/L (136-145)
--- NOTE | 2020-08-08 10:42 | CT ---
CTA Angio Head W WO Con CT brain without contrast CT angiogram neck with contrast History: Dizziness Comparison: CT angiogram September 2018 Findings: CT brain without contrast: No acute hemorrhage or infarct. No midline shift or mass effect. Ventricular size and extra-axial CSF spaces are normal. Calvarium is intact. Chronic mucosal thickening and volume loss of the right maxillary sinus. Mastoids are clear. CT angiogram head/neck with contrast: CT angiogram of the head and neck was performed after the intra venous administration of contrast. 3-D rendering provided. Normal cervical spine alignment. Few superior endplate Schmorl's nodes. No acute fracture or malalignment. Lung apices are relatively clear. No pneumothorax. Pulmonary trunk is intact. Transversely oriented is normal. The vertebral arteries are relatively codominant and patent. The right common carotid artery is patent. The right internal carotid artery is patent. No hemodynami abhilash significant stenosis per NASCET criteria. The left common carotid artery is patent. The left internal carotid artery is patent. No hemodynamica lly significant stenosis per NASCET criteria. [place] of [place] is patent without stenosis, thrombosis or aneurysm formation. Dural venous sinuses are patent. Impression: 1. No acute intracranial abnormality. No acute hemorrhage or infarct. 2. Patent [place] of [place] without stenosis, thrombosis or aneurysm formation. 3. No hemodynamically significant stenosis internal carotid arteries per NASCET criteria.
[2020-08-08] MEDS ORDERED: Meclizine HCl 25 MG TAB ONE ×2 (10:46→10:47)
[2020-08-08] MEDS ORDERED: Ondansetron PF 4 MG/2 ML Vial ONE (10:46)
[2020-08-08] MEDS ORDERED: Aspirin Chewable 81 MG TAB ONE (12:43)
[2020-08-08] MEDS ORDERED: Acetaminophen 325 MG TAB PO PRN (14:40)
[2020-08-08] MEDS ORDERED: Meclizine HCl 12.5 MG TAB PO PRN (14:51)
--- NOTE | 2020-08-08 15:08 | PDOC.HHP ---
Hospitalist HPI - History of Present Illness History of Present Illness: ADMISSION DATE: 08/08/2020 TIME OF ASSESSMENT: 1415 PRIMARY CARE PHYSICIAN: [place] call CHIEF COMPLAINT: Dizziness HPI: Patient is a 64-year-old female past medical history significant for multiple TIAs, CVA, chronic hypotension. She presents to the ER today after getting up at 130 this morning and having difficulty walking due to dizziness. She states she is also having left-sided facial pain and was having right-sided arm and leg numbness which has since resolved. She states her dizziness is slightly better after receiving meclizine but if she turns her head fully to the side and brings it back to baseline she feels dizzy once again. Patient takes aspirin and Plavix currently. She states she has also felt tired lately. She denies chest pain, shortness of breath, contact with sick persons, bowel or bladder changes. She does state that she has chronic hypotension and her normal blood pressure range is mid 80s/40s-50s. ED COURSE: Vital Signs: Blood pressure 135/75, pulse 70, respiratory 16, temp 98 oral, O2 saturation 94% on room air Today in the ER they completed lab work, CT angio of the head with and without contrast and brain CT, and EKG. PAST MEDICAL HISTORY: Angina, hypothyroid, hyperlipidemia, sleep apnea, TIA x5, CVA, hypotension, anxiety, depression PAST SURGICAL HISTORY: Hysterectomy, toe amputation, tonsillectomy, right knee replacement SOCIAL HISTORY: Patient lives at home with her . She is a former tobacco user. She denies any alcohol or drug abuse. FAMILY HISTORY: Mother had "heart issues and a colon problem", father had aneurysm ALLERGIES: Olafavil, Amy CURRENT MEDICATIONS: Aspirin 81 mg Pantoprazole 20 mg Citalopram 10 mg Atorvastatin 80 mg Levothyroxine 100 mcg Bupropion 300 mg Clonazepam 0.5 mg 2 times a day Folic acid Melatonin Vitamin D3 complete Ranolazine 500 mg twice a day Divalproex social 50 mg Plavix 75 mg Midodrine 2.5 mg 3 times a day Mag64 Hospitalist ROS - Review of Systems Constitutional: reports: other (dizziness) Eyes: reports: other (pain under left eye) Neurological: reports: other (unstable gait due to dizziness) All other systems reviewed; all pertinent +/- noted in HPI/Subj - Exam General Appearance: NAD, awake alert Eye: PERRL Neck: supple Heart: RRR, no murmur, no gallops, no rubs, normal peripheral pulses Respiratory: CTAB, no wheezes, no rales, no ronchi, normal chest expansion Gastrointestinal: soft, non-tender, non-distended, normal bowel sounds Extremities: no edema Neurological: cranial nerve grossly intact, normal sensation to touch, no weakness, no focal deficits, vision deficit Neurological - other findings: endorses blurred peripheral vision Musculoskeletal: no muscle wasting Psychiatric: normal affect, normal behavior, A&O x 3 Hospitalist Results - Labs Result Diagrams: 08/08/20 09:28 08/08/20: Lab results: WBC 5.6 thou/uL (4.8-10.8) 08/08/20: Hgb 12.1 g/dL (12.0-16.0) 08/08/20: Hct 35.9 % (36.0-47.0) L 08/08/20: MCV 104.0 fL (78.0-98.0) H 08/08/20: Plt Count 223 thou/uL (130-400) 08/08/20: Neutrophils % 60.5 % (42.0-75.0) 08/08/20 09: Sodium 141 mmol/L (136-145) 08/08/20: Potassium 3.9 mmol/L (3.5-5.1) 08/08/20: Chloride 106 mmol/L (98-107) 08/08/20: Carbon Dioxide 25 mmol/L (23-31) 08/08/20: BUN 16 mg/dL (9.8-20.1) 08/08/20:28 Creatinine 0.94 mg/dL (0.6-1.1) 08/08/20: Glucose 90 mg/dL (80-115) 08/08/20: Calcium 8.9 mg/dL (7.8-10.44) 08/08/20: Total Bilirubin 0.6 mg/dL (0.2-1.2) 08/08/20: AST 14 U/L (5-34) 12/15/20 09:28 ALT 11 U/L (8-55) 08/08/20 09:28 Alkaline Phosphatase 42 U/L (40-110) 08/08/20 09:28 Troponin I 0.012 ng/mL (< 0.028) 08/08/20 09:28 Serum Total Protein 6.1 g/dL (6.0-8.3) 08/08/20 09:28 Albumin 3.8 g/dL (3.4-4.8) 08/08/20 09:28 - EKG Interpretation EKG: 71bpm - Radiology Interpretation CT scan - head Status: report reviewed by me Additional Comment: Findings: CT brain without contrast: No acute hemorrhage or infarct. No midline shift or mass effect. Ventricular size and extra-axial CSF spaces are normal. Calvarium is intact. Chronic mucosal thickening and volume loss of the right maxillary sinus. Mastoids are clear. CT angiogram head/neck with contrast: CT angiogram of the head and neck was performed after the intra venous administration of contrast. 3-D rendering provided. Normal cervical spine alignment. Few superior endplate Schmorls nodes. No acute fracture or malalignment. Lung apices are relatively clear. No pneumothorax. Pulmonary trunk is intact. Transversely oriented is normal. The vertebral arteries are relatively codominant and patent. The right common carotid artery is patent. The right internal carotid artery is patent. No hemodynamically significant stenosis per NASCET criteria. The left common carotid artery is patent. The left internal carotid artery is patent. No hemodynamically significant stenosis per NASCET criteria. [place] of [place] is patent without stenosis, thrombosis or aneurysm formation. Dural venous sinuses are patent. Impression: 1. No acute intracranial abnormality. No acute hemorrhage or infarct. 2. Patent [place] of [place] without stenosis, thrombosis or aneurysm formation. 3. No hemodynamically significant stenosis internal carotid arteries per NASCET criteria. Hospitalist H&P A/P - Plan Plan: Dizziness rule out TIA As needed meclizine available Admit to stroke unit Neurology consultation MRI in a.m. Echo pending Magnesium and TSH pending NIH every shift neurochecks every 4 hour Collect UA Fasting lipid panel in a.m. Orthostatic vital signs to be obtained Chronic hypotension Gentle IV hydration Restart midodrine Monitor on telemetry Vital signs every 4 hour Hypothyroidism Restart home medications Check TSH Hyperlipidemia Restart home medications VTE prophylaxis in place with SCDs CODE STATUS: Full Surrogate decision maker is her , Gonsalo Fraserdo
[2020-08-08] MEDS ORDERED: Magnesium 2 GM/50 ML 2 GM in Premix Bag 1 BAG IVPB SCH (16:45)
[2020-08-08] MEDS: Midodrine HCl 5 MG TAB PO SCH ×2 (17:56→20:19)
[2020-08-08 18:00] VITALS: BMI 27.2
[2020-08-08] MEDS: Sodium Chloride 0.9% 1,000 ML IV SCH (18:16)
[2020-08-08 20:07] LABS: SARS-CoV-2 MS2 Positive; SARS-CoV-2 N Gene Negative; SARS-CoV-2 S Gene Negative; SARS-CoV-2 by NAA Not Detected (NotDetected); SARS-CoV-2 orf1ab Negative
[2020-08-08] MEDS ORDERED: Fluticasone Propionate Nasal Spray 16 gm Bottle NASAL PRN (23:34)
[2020-08-08] MEDS ORDERED: Albuterol Sulfate 2.5 mg/3 ml Neb NEB PRN (23:51)
[2020-08-08] MEDS ORDERED: Melatonin 3 MG TAB PO SCH (23:59)
[2020-08-08] MEDS ORDERED: Divalproex Sodium 250 MG (DR) TAB PO SCH (23:59)
[2020-08-08] MEDS ORDERED: clonazePAM 0.5 MG TAB PO SCH (23:59)
[2020-08-08] MEDS ORDERED: Atorvastatin Calcium 40 MG TAB PO SCH (23:59)
[2020-08-08] MEDS ORDERED: Bupropion 150 MG XL TAB PO SCH (23:59)
[2020-08-09 02:13] LABS: Bacteria/HPF 3+ HPF (None Seen); Bilirubin Negative (Negative); Blood, Urine Negative (Negative); Clarity Clear (Clear); Glucose, Urine (Dipstick) Normal (Negative); Ketone, Urine Negative (Negative); Leukocyte 75 Leu/uL (Negative); Nitrite Negative (Negative); Protein, Urine (Dipstick) Negative (Neg-Trace); RBC/HPF 0-3 HPF (0-3); Specific Gravity, Urine 1.023 (1.002-1.036); Urobilinogen Normal mg/dL (Less than 2); pH, Urine 6.5 (5.0-9.0)
[2020-08-09 04:45] LABS: #Basophils 0.1 thou/uL (0.0-0.2); #Eosinphils 0.3 thou/uL (0.0-0.7); #Lymphocytes 1.8 thou/uL (1.20-3.40); #Monocytes 0.6 thou/uL (0.11-0.59); #Neutrophils 3.4 thou/uL (1.40-6.50); %Basophils 0.9 % (0.0-1.0); %Eosinophils 5.1 % (0.0-10.0); %Lymphocytes 28.7 % (21.0-51.0); %Monocytes 9.9 % (0.0-10.0); %Neutrophils 55.4 % (42.0-75.0); Hemoglobin 11.5 g/dL (12.0-16.0); Mean Corpuscular HGB CONC 34.5 g/dL (32.0-36.0); Mean Corpuscular Hemoglobin 35.8 pg (27.0-31.0); Platelet Count 201 thou/uL (130-400); RBC Distribution Width 10.8 % (11.5-14.5); Red Blood Cell (RBC) Count 3.22 mill/uL (4.20-5.40); White Blood Cell (WBC) Count 6.1 thou/uL (4.8-10.8)
[2020-08-09 05:07] LABS: Anion Gap 12 mmol/L (10-20); BUN (Urea Nitrogen) 18 mg/dL (9.8-20.1); Calc. Creatinine Clearance 76 mL/min (70-130); Calcium 8.5 mg/dL (7.8-10.44); Carbon Dioxide 28 mmol/L (23-31); Cardiac Risk 2.3 (Less than 4.5); Chloride 106 mmol/L (98-107); Cholesterol 115 mg/dl (< 200 Desired); Glucose 70 mg/dL (80-115); HDL Cholesterol 51 mg/dL (>60 Neg Risk); LDL Cholesterol, Calculated 54 mg/dL; Sodium 142 mmol/L (136-145); Triglycerides 50 mg/dL (Less than 150)
[2020-08-09] MEDS: Levothyroxine Sodium 100 MCG TAB PO SCH (05:33)
[2020-08-09] MEDS: Escitalopram Oxalate 10 mg Tablet PO SCH (08:51)
[2020-08-09] MEDS: Cholecalciferol 1,000 UNITS (25 MCG) TAB PO SCH (08:51)
[2020-08-09] MEDS: Aspirin 325 mg Enteric Coated Tablet PO SCH (08:51)
[2020-08-09] MEDS: clonazePAM 0.5 MG TAB PO SCH ×2 (08:51→19:43)
[2020-08-09] MEDS: Clopidogrel Bisulfate 75 MG TAB PO SCH (08:51)
[2020-08-09] MEDS: Folic Acid 1 MG TAB PO SCH (08:52)
[2020-08-09] MEDS: Midodrine HCl 5 MG TAB PO SCH ×3 (08:53→19:42)
--- NOTE | 2020-08-09 10:34 | MRI ---
EXAM: MRI of the brain without contrast HISTORY: TIA with dizziness and blurry vision. Right arm and leg numbness COMPARISON: CTA brain 08/08/2020 and MRI brain 10/18/2018 TECHNIQUE: Multiplanar multisequence MR images were obtained of the brain without IV contrast. FINDINGS: The brain demonstrates normal signal intensity on all obtained sequences. No restricted diffusion. No hydronephrosis. No extra-axial fluid collection or intracranial hemorrhage. The expected flow voids are present. Corpus callosum, pituitary, and craniocervical junction are within normal limits. The calvarium and overlying soft tissues are unremarkable. There is opacification of the right maxillary sinus. The other paranasal sinuses and mastoid air cell s are well aerated. IMPRESSION: No evidence of acute intracranial abnormality.
--- NOTE | 2020-08-09 14:06 | CT ---
CTA Angio Head W WO Con CT brain without contrast CT angiogram neck with contrast History: Dizziness Comparison: CT angiogram September 2018 Findings: CT brain without contrast: No acute hemorrhage or infarct. No midline shift or mass effect. Ventricular size and extra-axial CSF spaces are normal. Calvarium is intact. Chronic mucosal thickening and volume loss of the right maxillary sinus. Mastoids are clear. CT angiogram head/neck with contrast: CT angiogram of the head and neck was performed after the intra venous administration of contrast. 3-D rendering provided. Normal cervical spine alignment. Few superior endplate Schmorl's nodes. No acute fracture or malalignment. Lung apices are relatively clear. No pneumothorax. Pulmonary trunk is intact. Transversely oriented is normal. The vertebral arteries are relatively codominant and patent. The right common carotid artery is patent. The right internal carotid artery is patent. No hemodynami abhilash significant stenosis per NASCET criteria. The left common carotid artery is patent. The left internal carotid artery is patent. No hemodynamica lly significant stenosis per NASCET criteria. [place] of [place] is patent without stenosis, thrombosis or aneurysm formation. Dural venous sinuses are patent. Impression: 1. No acute intracranial abnormality. No acute hemorrhage or infarct. 2. Patent [place] of [place] without stenosis, thrombosis or aneurysm formation. 3. No hemodynamically significant stenosis internal carotid arteries per NASCET criteria. Transcribed Date/Time: 08/09/2020 2:06 PM
[2020-08-09] MEDS: Sodium Chloride 0.9% 1,000 ML IV SCH (15:42)
--- NOTE | 2020-08-09 16:45 | CON ---
DATE OF CONSULTATION: 08/09/2020 CONSULTING PHYSICIAN: Hospitalist Services. IMPRESSION: Chronic orthostatic hypotension. PLAN: 1. Monitor orthostatic blood pressures and adjust midodrine as necessary. 2. Follow up with Dr. Costello for this condition. HISTORY OF PRESENT ILLNESS: Ms. Manzanares is a 64-year-old white female with a long history of hypotension. She has been seen by Dr. Costello and had an extensive cardiac workup. She has been on midodrine for some time now. She got up to go to the bathroom and got lightheaded. She sat down on the bed and waited. She got up and headed to the bathroom again and was able to make it. When she got up to walk back to the bed, she became lightheaded once again, she nearly fell. She thought that her right leg had gotten a little weak in association with the lightheadedness. She presented to the hospital for evaluation. Her CT and CT angiograms were both unremarkable. She subsequently had an MRI of the brain, which was normal. EKG showed normal sinus rhythm. All her lab work was in normal range. Orthostatic pressures have not been checked at this point. PAST HISTORY: 1. Hypotension. 2. Reported history of prior strokes. MEDICATIONS: Include: 1. Aspirin. 2. Plavix. 3. Midodrine. ALLERGIES: TRAZODONE AND AMITRIPTYLINE. SOCIAL HISTORY: No tobacco or alcohol use. FAMILY HISTORY: Unremarkable. REVIEW OF SYSTEMS: Ten-system review of systems is otherwise negative. PHYSICAL EXAMINATION: GENERAL: She is a thin, middle-aged woman, in no acute distress. VITAL SIGNS: Stable. She is afebrile. HEENT: Pupils equal and reactive. Conjunctivae clear. Oropharynx clear. NECK: Supple. No lymphadenopathy. ABDOMEN: Soft and nontender. SKIN: Clear. EXTREMITIES: No cyanosis or edema. NEUROLOGIC: She was alert and appropriate. Her speech was fluent and clear. Cranial nerves were intact. Motor exam showed good strength bilaterally. There was no fix or drift. There was no tremor or dysmetria. Sensation was intact in the extremities to light touch and proprioception. Plantar responses were downgoing. No abnormal movements were seen. SUMMARY: Neurologic workup has been unremarkable. She has a longstanding history of hypotension, which would fit the clinical picture that she presented with. I do not see any further need for neurologic testing. Job ID: [id number]
--- NOTE | 2020-08-09 17:09 | PDOC.HOSPP ---
- Subjective Encounter Date: 08/09/20 Encounter Time: 09:40 Subjective: Patient is quite anxious to know the MRI findings which the reports were pending. She also wants to know whether she can go home today. Her weakness is resolved. She is lifting her leg spontaneously with without any weakness and she is also using her right hand having her breakfast. No sensory impairment. - Objective Vital Signs & Weight: Vital Signs (12 hours) Temp Pulse Resp BP BP Pulse Ox 08/09/20 15:37 98.2 F 72 16 107/57 L 95 08/09/20 11:07 98 F 79 20 102/59 L 97 08/09/20 07:55 98.3 F 73 15 129/63 95 Weight Admit Weight 168 lb 9.6 oz Weight 168 lb 9.6 oz I&O: 08/08/20 08/09/20 08/10/20 06:59 06:59 06:59 Intake Total 600 480 Output Total 600 Balance 0 480 Result Diagrams: 08/09/20 04:21 08/09/20 04:21 Hospitalist ROS - Medication Medications: Active Medications Generic Name Dose Route Start Last Admin Trade Name Adithya PRN Reason Stop Dose Admin Aspirin 325 mg 08/09/20 09:00 08/09/20 08:51 Aspirin 325 Mg Enteric Coated Tablet PO 325 mg DAILY GO Administration Cholecalciferol 2,000 units 08/09/20 09:00 08/09/20 08:51 Cholecalciferol 1,000 Units (25 Mcg) Tab PO 2,000 units DAILY GO Administration Clonazepam 0.5 mg 08/09/20 09:00 08/09/20 08:51 Clonazepam 0.5 Mg Tab PO 0.5 mg BID GO Administration Clopidogrel Bisulfate 75 mg 08/09/20 09:00 08/09/20 08:51 Clopidogrel Bisulfate 75 Mg Tab PO 75 mg DAILY GO Administration Escitalopram Oxalate 10 mg 08/09/20 09:00 08/09/20 08:51 Escitalopram Oxalate 10 Mg Tablet PO 10 mg DAILY GO Administration Folic Acid 1 mg 08/09/20 09:00 08/09/20 08:52 Folic Acid 1 Mg Tab PO 1 mg DAILY GO Administration Sodium Chloride 1,000 mls @ 50 mls/hr 08/08/20 14:45 08/09/20 15:42 Normal Saline 0.9% IV 1,000 mls .Q20H GO Administration Levothyroxine Sodium 100 mcg 08/09/20 06:00 08/09/20 05:33 Levothyroxine Sodium 100 Mcg Tab PO 100 mcg 0600 GO Administration Meclizine HCl 12.5 mg 08/08/20 14:51 08/09/20 15:41 Meclizine Hcl 12.5 Mg Tab PO 12.5 mg TIDPRN PRN Administration Dizziness Midodrine 2.5 mg 08/09/20 09:00 08/09/20 15:41 Midodrine Hcl 5 Mg Tab PO 2.5 mg TID GO Administration Pantoprazole Sodium 40 mg 08/09/20 09:00 08/09/20 08:52 Pantoprazole 40 Mg Tab PO 40 mg DAILY GO Administration Ranolazine 500 mg 08/09/20 09:00 08/09/20 08:51 Ranolazine 500 Mg Tab PO 500 mg BID GO Administration - Exam General Appearance: NAD, awake alert Eye: PERRL ENT: normocephalic atraumatic Neck: supple Heart: RRR Respiratory: CTAB, normal chest expansion Gastrointestinal: soft, normal bowel sounds Extremities: no cyanosis, 1+ LE edema Neurological: cranial nerve grossly intact, normal sensation to touch, no focal deficits Musculoskeletal: normal tone, normal strength Psychiatric: A&O x 3 Hosp A/P - Plan Dizziness rule out TIA As needed meclizine available Admit to stroke unit Neurology consultation MRI in a.m. Echo pending Magnesium and TSH pending NIH every shift neurochecks every 4 hour Collect UA Fasting lipid panel in a.m. Orthostatic vital signs to be obtained Chronic hypotension Gentle IV hydration Restart midodrine Monitor on telemetry Vital signs every 4 hour Hypothyroidism Restart home medications Check TSH Hyperlipidemia Restart home medications VTE prophylaxis in place with SCDs CODE STATUS: Full Surrogate decision maker is her , [employer] Patient decided this morning to go home however later changed her mind she says that she is having ongoing dizziness. MRI is negative for any acute airway abnormality her physical exam also no focal deficits. Neurology has been consulted. She is on meclizine for her dizziness. Likely Dr. Newman will see her today
[2020-08-09] MEDS ORDERED: Divalproex Sodium 250 MG (DR) TAB PO SCH (21:00)
[2020-08-09] MEDS ORDERED: Bupropion 150 MG XL TAB PO SCH (21:00)
[2020-08-09] MEDS ORDERED: Atorvastatin Calcium 40 MG TAB PO SCH (21:00)
[2020-08-09] MEDS ORDERED: Melatonin 3 MG TAB PO SCH (21:00)
[2020-08-10 05:13] LABS: #Eosinphils 0.4 thou/uL (0.0-0.7); #Lymphocytes 1.7 thou/uL (1.20-3.40); #Monocytes 0.7 thou/uL (0.11-0.59); #Neutrophils 3.8 thou/uL (1.40-6.50); %Basophils 0.3 % (0.0-1.0); %Eosinophils 6.1 % (0.0-10.0); %Lymphocytes 26.2 % (21.0-51.0); %Neutrophils 57.4 % (42.0-75.0); Hemoglobin 11.9 g/dL (12.0-16.0); Mean Corpuscular HGB CONC 34.5 g/dL (32.0-36.0); Mean Corpuscular Hemoglobin 36.9 pg (27.0-31.0); Mean Platelet Volume 7.7 fL (7.4-10.4); Platelet Count 174 thou/uL (130-400); RBC Distribution Width 10.9 % (11.5-14.5); Red Blood Cell (RBC) Count 3.24 mill/uL (4.20-5.40); White Blood Cell (WBC) Count 6.7 thou/uL (4.8-10.8)
[2020-08-10 05:36] LABS: Anion Gap 13 mmol/L (10-20); BUN (Urea Nitrogen) 14 mg/dL (9.8-20.1); Calc. Creatinine Clearance 82 mL/min (70-130); Calcium 8.9 mg/dL (7.8-10.44); Carbon Dioxide 27 mmol/L (23-31); Chloride 107 mmol/L (98-107); Glucose 65 mg/dL (80-115); Potassium 4.6 mmol/L (3.5-5.1); Sodium 142 mmol/L (136-145)
[2020-08-10] MEDS: Levothyroxine Sodium 100 MCG TAB PO SCH (05:51)
[2020-08-10] MEDS: Sodium Chloride 0.9% 1,000 ML IV SCH (07:32)
[2020-08-10 07:49] VITALS: BP 123/57; TEMP 98.1
[2020-08-10] MEDS: Aspirin 325 mg Enteric Coated Tablet PO SCH (09:53)
[2020-08-10] MEDS: clonazePAM 0.5 MG TAB PO SCH (09:54)
[2020-08-10] MEDS: Escitalopram Oxalate 10 mg Tablet PO SCH (09:54)
[2020-08-10] MEDS: Clopidogrel Bisulfate 75 MG TAB PO SCH (09:54)
[2020-08-10] MEDS: Midodrine HCl 5 MG TAB PO SCH (09:54)
[2020-08-10] MEDS: Folic Acid 1 MG TAB PO SCH (09:54)
[2020-08-10] MEDS: Cholecalciferol 1,000 UNITS (25 MCG) TAB PO SCH (09:54)
--- NOTE | 2020-08-10 14:53 | PDOC.DS.DS ---
Provider - Provider Date of Admission: 08/09/20 15:22 Admitting Provider: George Vela DO Primary Care Physician: [facility] Course - Hospital Course Hospital Course: 64-year-old female presented with Dizziness rule out TIA As needed meclizine available Neurology had no new recommendations MRA without any acute intracranial abnormality. -TSH in the normal range LDL level 54. -Echo showed EF of 65% with a normal left ventricular function trace mitral regu rgitation normal aortic valve Chronic hypotension -Continue with the home midodrine. Hypothyroidism Restart home medications Check TSH Able to be discharged home today. If meclizine is not helping and I have suggested that he she needs ENT evaluation. Patient expressed her understanding and will follow up as needed. Discharge time over 30 minutes Resuscitation Status: 08/08/20 14:40 Resuscitation Status Routine Co-Sign Provider: Resuscitation Status: FULL: Full Resuscitation Discussed with: pt - Labs Lab Results: 08/10/20 04:41 08/10/20 04:41 Abnormal Lab Results - Last 48 hrs 08/08/20 15:33: Magnesium 1.4 L 08/09/20 01:27: Ur Leukocyte Esterase 75 A, Urine WBC 7-10 A, Ur Squamous Epith Cells 4-6 A, Urine Bacteria 3+ A 08/09/20 04:21: RBC 3.22 L, Hgb 11.5 L, Hct 33.4 L, MCV 104.0 H, MCH 35.8 H, RDW 10.8 L, MPV 7.0 L, Monocytes # 0.6 H 08/10/20 04:41: RBC 3.24 L, Hgb 11.9 L, Hct 34.7 L, MCV 107.0 H, MCH 36.9 H, RDW 10.9 L, Monocytes # 0.7 H - Physical Exam Vitals: Vital Signs (12 hours) Temp Pulse Resp BP BP Pulse Ox 08/10/20 07:12 98.1 F 68 12 123/57 L 96 08/10/20 04:00 98.0 F 62 18 117/55 L 93 L Weight Admit Weight 168 lb 9.6 oz Weight 168 lb 9.6 oz Physical Exam: The patient was seen and examined on the day of discharge. T patient is comfortable going home today. And no acute issues this morning. Plan - Discharge Medications Prescriptions: Meclizine HCl [Antivert] 12.5 mg PO TIDPRN PRN 20 Days #20 tab PRN Reason: Dizziness Home Medications: Medication Instructions Recorded Confirmed Type Pantoprazole Sodium [Protonix] 20 mg PO QAM 04/23/16 08/08/20 History Ranolazine [Ranexa] 500 mg PO BID #0 tab 05/26/16 08/08/20 Rx Atorvastatin Calcium [Lipitor] 80 mg PO HS 02/09/17 08/08/20 History Levothyroxine Sodium [Synthroid] 100 mcg PO 0600 #30 tab 02/10/17 08/08/20 Rx Melatonin 10 mg PO HS 02/16/18 08/08/20 History Folic Acid 0.8 mg PO DAILY 06/28/18 08/08/20 History Albuterol Sulfate [Ventolin Hfa] 2 puff INH Q4HR PRN 10/17/18 08/08/20 History Fluticasone Propionate [Flonase 1 spray EA NARE PRN PRN 10/17/18 08/08/20 History Nasal Wheeler] Nitroglycerin 0.4 mg SL PRN PRN 10/17/18 08/08/20 History Aspirin [Aspirin EC] 81 mg PO DAILY #30 tab 10/18/18 08/08/20 Rx Acetaminophen [Tylenol Extra 1,000 mg PO Q6HR PRN 11/27/18 08/08/20 History Strength] BuPROPion XL [Wellbutrin XL] 300 mg PO HS 11/27/18 08/08/20 History Cholecalciferol (Vitamin D3) 2,000 units PO DAILY 09/14/19 08/08/20 History [Vitamin D3] Clopidogrel Bisulfate [Clopidogrel] 75 mg PO DAILY 11/11/19 08/08/[address] [Depakote] 250 mg PO HS 11/11/19 08/08/20 History Escitalopram Oxalate [Lexapro] 10 mg PO DAILY 11/11/19 08/08/20 History Midodrine HCl 2.5 mg PO TID 11/11/19 08/08/20 History clonazePAM [Klonopin] 0.5 mg PO BID 11/11/19 08/08/20 History Meclizine HCl [Antivert] 12.5 mg PO TIDPRN PRN 20 Days #20 08/10/20 Rx tab Allergies: trazodone HCl [From Desyrel] Allergy (Severe, Verified 11/13/19 14:07) Rash amitriptyline [From Elavil] Allergy (Verified 11/13/19 14:07) Rash - Discharge Instructions Discharge Instructions:: Follow-up with PCP in 1 week Activity:: Activity as Tolerated Nourishment:: Regular Diet - Follow up Plan Referrals: [facility] [Primary Care Provider] - Disposition: HOME Quality - Care Measures CORE MEASURES:: Stroke/TIA - Stroke/TIA Did you prescribe antithrombotic therapy?: Yes Did you prescribe anticoagulant for A Fib/Flutter?: No Specify reason for no DC anticoagulant: Treatment not indicated Did you prescribe a statin medication?: Yes
--- NOTE | 2020-08-12 14:42 | EKG ---
Test Reason : Blood Pressure : / mmHG Vent. Rate : 071 BPM Atrial Rate : 071 BPM P-R Int : 142 ms QRS Dur : 092 ms QT Int : 420 ms P-R-T Axes : 061 013 059 degrees QTc Int : 456 ms Normal sinus rhythm Incomplete right bundle branch block Borderline ECG Confirmed by DAYLIN DE LOS SANTOS ([id number]), writer editor MEDARDO VAZQUEZ ([id number]) on 08/12/2020 2:41:53 PM Referred By: Confirmed By:DAYLIN DE LOS SANTOS
--- NOTE | 2020-08-22 01:10 | PQF ---
Dear : Charles Vazquez Date 08/22/20 Please exercise your independent, professional judgment in responding to the clarification form. Clinical indicators are provided on the bottom of this form for your review Can you please further calrify if TIA is ruled in or ruled out? TIA [ ] Ruled in diagnosis [ ] Continue to treat [ ] Resolved [ ] Ruled out diagnosis [ ] Improving [ x ] Cannot rule out diagnosis [ ] Other diagnosis please specify [ ] Unable to determine Physician Signature: Date/Time: For continuity of documentation, please document condition throughout progress notes and discharge summary. Thank You. To be completed by CDI/Coding staff for physician review: Present Clinical Indicators - Signs / Symptoms / Labs Results and Location in Medical Record [ x ] Dizziness rule out TIA DS pg.1 [ x ] MRA without any acute intracranial abnormality DS pg.1 [ x ] Difficulty to walk due to dizziness H and P pg.1 [ x ] Neurologic work up has been unremarkable Consult pg.1 [ x ] having left sided facial pain and was having right sided arm and leg numbness HP 08/08 [ x ] Ataxia ED Notes 08/09 [ x ] Mild to moderate sensory loss ED Notes 08/09 Present Risk Factors Results and Location in Medical Record [ x ] Chronic hypotension H and P pg.1 [ x ] Multiple TIA H and P pg.1 [ x ] CVA H and P pg.1 [ x ] 64 years old H and P pg.1 [ x ] HLD HP 08/08 [ x ] Former Smoker ED Notes 08/09 Present Treatments Results and Location in Medical Record [ x ] Neurology Consult Dr. Newman 08/09 [ x ] Orthostatic vital sign H and P pg.5 [ x ] IV Fluids MAR [ x ] NIH every shift H and P pg.5 [ x ] Neuro check every 4 hours H and P pg.5 [ x ] Aspirin 81mg Oral MAR 08/08 [ x ] Plavix 75mg Oral NOV 03 CDS/Rn Child Signature: Jose Green Phone #: [phone] Date/Time: 08/22/2020 This is a permanent part of the Medical Record [facility]
== END 2020-08-10 11:35 | disposition home or self-care (01) | DRG 69 ==
LOC: ERS 09:04 → ERHOLD 13:26 → 2SE 17:10 → OBSVTOIN 08-09 15:22
PROVIDERS: ADMIT Family Medicine; ATTEND Internal Medicine
DX: G45.9 Transient cerebral ischemic attack, unspecified (principal); I95.1 Orthostatic hypotension; Z20.828 Contact with and (suspected) exposure to other viral communicable diseases; Z23 Encounter for immunization; E03.9 Hypothyroidism, unspecified; E78.5 Hyperlipidemia, unspecified; G47.33 Obstructive sleep apnea (adult) (pediatric); Z96.651 Presence of right artificial knee joint; F41.9 Anxiety disorder, unspecified; F32.9 Major depressive disorder, single episode, unspecified; Z90.710 Acquired absence of both cervix and uterus; Z87.891 Personal history of nicotine dependence; Z86.73 Personal history of transient ischemic attack (TIA), and cerebral infarction without residual deficits; Z88.8 Allergy status to other drugs, medicaments and biological substances; Z79.82 Long term (current) use of aspirin; Z79.890 Hormone replacement therapy; Z79.01 Long term (current) use of anticoagulants; Z79.899 Other long term (current) drug therapy
CPT/HCPCS: 36415; 36416; 70496; 70498; 70551; 80048; 80053; 80061; 81001; 83735; 84443; 84484; 85025; 87635; 90471; 90732; 93005; 93306; 96374; 96375; G0009; G0378; J2405; J3475; Q9967; U0003

== ENCOUNTER 2021-06-05 10:41 | Emergency (ER) | payer MEDICARE, MEDICAID ==
[2021-06-05 11:24] LABS: #Basophils 0.1 thou/uL (0.0-0.2); #Eosinphils 0.2 thou/uL (0.0-0.7); #Lymphocytes 1.6 thou/uL (1.20-3.40); #Monocytes 0.7 thou/uL (0.11-0.59); #Neutrophils 5.2 thou/uL (1.40-6.50); %Basophils 0.7 % (0.0-1.0); %Eosinophils 3.1 % (0.0-10.0); %Lymphocytes 20.3 % (21.0-51.0); %Monocytes 8.9 % (0.0-10.0); Mean Corpuscular HGB CONC 32.5 g/dL (32.0-36.0); Mean Corpuscular Hemoglobin 33.8 pg (27.0-31.0); Mean Platelet Volume 6.7 fL (7.4-10.4); Platelet Count 232 thou/uL (130-400); RBC Distribution Width 10.9 % (11.5-14.5); Red Blood Cell (RBC) Count 3.56 mill/uL (4.20-5.40); White Blood Cell (WBC) Count 7.8 thou/uL (4.8-10.8)
[2021-06-05] MEDS ORDERED: Meclizine HCl 25 MG TAB ONE (11:37)
[2021-06-05 11:54] LABS: Albumin 3.5 g/dL (3.4-4.8)
[2021-06-05 11:55] LABS: Chloride 104 mmol/L (98-107); Potassium 3.8 mmol/L (3.5-5.1); Sodium 141 mmol/L (136-145)
[2021-06-05 11:56] LABS: Calcium 9.2 mg/dL (7.8-10.44)
[2021-06-05 11:57] LABS: Globulin 2.2 g/dL (2.4-3.5); Protein, Total 5.7 g/dL (5.8-8.1)
[2021-06-05 11:58] LABS: Bilirubin, Total 0.5 mg/dL (0.2-1.2); Carbon Dioxide 29 mmol/L (23-31)
[2021-06-05 11:59] LABS: Alkaline Phosphatase 44 U/L (40-110)
[2021-06-05 12:00] LABS: Calc. Creatinine Clearance 0 mL/min (70-130)
[2021-06-05 12:01] LABS: BUN (Urea Nitrogen) 15 mg/dL (9.8-20.1)
[2021-06-05 12:02] LABS: ALT (SGPT) 9 U/L (8-55); AST (SGOT) 15 U/L (5-34)
[2021-06-05 12:05] LABS: Glucose 55 mg/dL (80-115)
[2021-06-05 12:06] LABS: Anion Gap 12 mmol/L (10-20)
== END 2021-06-05 14:13 | disposition home or self-care (01) ==
LOC: ERS 10:41
DX: H81.10 Benign paroxysmal vertigo, unspecified ear (principal); E03.9 Hypothyroidism, unspecified; E78.5 Hyperlipidemia, unspecified; E78.00 Pure hypercholesterolemia, unspecified; G47.30 Sleep apnea, unspecified; Z87.891 Personal history of nicotine dependence
CPT/HCPCS: 36415; 36416; 70450; 80053; 84484; 85025

== ENCOUNTER 2021-09-17 14:44 | Emergency (ER) | payer OTHER, MEDICARE, MEDICAID ==
[2021-09-17] MEDS ORDERED: Acetaminophen 500 MG TAB ONE (17:03)
== END 2021-09-17 18:20 | disposition home or self-care (01) ==
LOC: ERS 14:44
DX: S09.90XA Unspecified injury of head, initial encounter (principal); S50.11XA Contusion of right forearm, initial encounter; E03.9 Hypothyroidism, unspecified; E78.5 Hyperlipidemia, unspecified; E78.00 Pure hypercholesterolemia, unspecified; J44.9 Chronic obstructive pulmonary disease, unspecified; Z87.891 Personal history of nicotine dependence; Z79.82 Long term (current) use of aspirin; Z79.899 Other long term (current) drug therapy; W01.0XXA Fall on same level from slipping, tripping and stumbling without subsequent striking against object, initial encounter
CPT/HCPCS: 70450; 72100; 72125

== ENCOUNTER 2021-12-13 14:35 | Emergency (ER) | payer MEDICARE, MEDICAID ==
[2021-12-13] MEDS ORDERED: Iopamidol-370 76% 500 ML 1 ML ONE (15:13)
[2021-12-13 15:50] LABS: #Eosinphils 0.2 thou/uL (0.0-0.7); #Lymphocytes 2.2 thou/uL (1.20-3.40); #Monocytes 0.9 thou/uL (0.11-0.59); %Basophils 0.5 % (0.0-1.0); %Lymphocytes 25.9 % (21.0-51.0); %Monocytes 10.3 % (0.0-10.0); %Neutrophils 60.3 % (42.0-75.0); Hemoglobin 12.2 g/dL (12.0-16.0); Mean Corpuscular HGB CONC 32.9 g/dL (32.0-36.0); Mean Corpuscular Hemoglobin 34.9 pg (27.0-31.0); Mean Platelet Volume 6.6 fL (7.4-10.4); Platelet Count 243 thou/uL (130-400); RBC Distribution Width 10.7 % (11.5-14.5); Red Blood Cell (RBC) Count 3.49 mill/uL (4.20-5.40); White Blood Cell (WBC) Count 8.3 thou/uL (4.8-10.8)
[2021-12-13] MEDS ORDERED: Ondansetron PF 4 MG/2 ML Vial ONE ×2 (16:06→17:48)
[2021-12-13] MEDS ORDERED: Morphine 4 MG/ML VIAL ONE (16:06)
[2021-12-13 16:09] LABS: Bacteria/HPF 3+ HPF (None Seen); Bilirubin Negative (Negative); Blood, Urine Negative (Negative); Clarity Turbid (Clear); Glucose, Urine (Dipstick) Normal (Negative); Ketone, Urine Negative (Negative); Leukocyte 250 Leu/uL (Negative); Nitrite Negative (Negative); Protein, Urine (Dipstick) Negative (Neg-Trace); RBC/HPF 0-3 HPF (0-3); Urobilinogen Normal mg/dL (Less than 2); pH, Urine 5.5 (5.0-9.0)
[2021-12-13 16:12] LABS: MDiff Complete? YES; Macrocytosis SLIGHT = 6-15 cells (100X) (0-5/hpf); Platelet Morphology Comment Appears Adequate; Polychromasia SLIGHT = 2-3 cells (100X) (0-2/hpf)
[2021-12-13 16:13] LABS: ALT (SGPT) 22 U/L (8-55); AST (SGOT) 41 U/L (5-34); Albumin 3.8 g/dL (3.4-4.8); Alkaline Phosphatase 58 U/L (40-110); Anion Gap 11 mmol/L (10-20); BUN (Urea Nitrogen) 20 mg/dL (9.8-20.1); Bilirubin, Total 0.2 mg/dL (0.2-1.2); Calc. Creatinine Clearance 0 mL/min (70-130); Calcium 9.2 mg/dL (7.8-10.44); Carbon Dioxide 26 mmol/L (23-31); Chloride 106 mmol/L (98-107); Globulin 2.6 g/dL (2.4-3.5); Glucose 75 mg/dL (80-115); Lipase 120 U/L (8-78); Potassium 4.3 mmol/L (3.5-5.1); Protein, Total 6.4 g/dL (5.8-8.1); Sodium 139 mmol/L (136-145)
[2021-12-13] MEDS ORDERED: Fentanyl 100 MCG/2 ML VIAL ONE (16:14)
== END 2021-12-13 19:42 | disposition home or self-care (01) ==
LOC: ERS 14:35
DX: K86.1 Other chronic pancreatitis (principal); I45.10 Unspecified right bundle-branch block; E03.9 Hypothyroidism, unspecified; E78.5 Hyperlipidemia, unspecified; E78.00 Pure hypercholesterolemia, unspecified; G47.30 Sleep apnea, unspecified; J44.9 Chronic obstructive pulmonary disease, unspecified; Z86.73 Personal history of transient ischemic attack (TIA), and cerebral infarction without residual deficits; Z87.891 Personal history of nicotine dependence; Z79.82 Long term (current) use of aspirin; Z79.899 Other long term (current) drug therapy
CPT/HCPCS: 36415; 71045; 74177; 80053; 81003; 81015; 83690; 84484; 85025; 87086; 93005; 96374; 96375; 96376; J2270; J2405; J3010; Q9967

== ENCOUNTER 2022-03-28 07:40 | Outpatient (CLI) | payer MEDICARE, MEDICAID ==
[2022-03-28] MEDS ORDERED: Iopamidol 370 76% 100 ML VIAL ONE (11:19)
== END 2022-03-28 07:41 | disposition home or self-care (01) ==
LOC: CT 07:40
PROVIDERS: ATTEND Physician Assistant Medical
DX: R10.32 Left lower quadrant pain (principal); R19.7 Diarrhea, unspecified
CPT/HCPCS: 74177; Q9967

== ENCOUNTER 2022-09-14 21:57 | Observation (INO) | payer OTHER, MEDICAID ==
[2022-09-14 22:56] LABS: #Eosinphils 0.2 thou/uL (0.0-0.7); #Lymphocytes 2.6 thou/uL (1.20-3.40); #Monocytes 0.7 thou/uL (0.11-0.59); #Neutrophils 4.9 thou/uL (1.40-6.50); %Basophils 0.3 % (0.0-1.0); %Eosinophils 2.3 % (0.0-10.0); %Lymphocytes 31.2 % (21.0-51.0); %Monocytes 8.1 % (0.0-10.0); %Neutrophils 58.1 % (42.0-75.0); Mean Corpuscular HGB CONC 34.8 g/dL (32.0-36.0); Mean Platelet Volume 6.9 fL (7.4-10.4); Platelet Count 264 10x3/uL (130-400); RBC Distribution Width 10.9 % (11.5-14.5); Red Blood Cell (RBC) Count 3.62 mill/uL (4.20-5.40); White Blood Cell (WBC) Count 8.4 10x3/uL (4.8-10.8)
[2022-09-14 23:16] LABS: ALT (SGPT) 18 U/L (8-55); AST (SGOT) 18 U/L (5-34); Albumin 4.2 g/dL (3.4-4.8); Alkaline Phosphatase 59 U/L (40-110); Anion Gap 16 mmol/L (10-20); BUN (Urea Nitrogen) 24 mg/dL (9.8-20.1); Bilirubin, Total 0.4 mg/dL (0.2-1.2); Calc. Creatinine Clearance 0 mL/min (70-130); Calcium 10.1 mg/dL (7.8-10.44); Carbon Dioxide 23 mmol/L (23-31); Chloride 107 mmol/L (98-107); Estimated GFR 47; Glucose 78 mg/dL (80-115); Potassium 4.7 mmol/L (3.5-5.1); Protein, Total 7.2 g/dL (5.8-8.1); Sodium 141 mmol/L (136-145)
[2022-09-15] MEDS ORDERED: Acetaminophen 325 MG TAB PO PRN (01:36)
[2022-09-15] MEDS ORDERED: clonazePAM 0.5 MG TAB PO SCH (01:45)
[2022-09-15] MEDS ORDERED: Sodium Chloride 0.9% 1,000 ML IV SCH (01:45)
[2022-09-15] MEDS ORDERED: clonazePAM 0.5 MG TAB ONE (02:19)
[2022-09-15] MEDS ORDERED: Aspirin Chewable 81 MG TAB ONE ×2 (02:32→08:18)
[2022-09-15] MEDS ORDERED: Meclizine HCl 12.5 MG TAB PO PRN (02:39)
[2022-09-15] MEDS ORDERED: Albuterol 200 PUFF (6.7GM INHALER) INH PRN (02:39)
[2022-09-15 02:51] LABS: #Eosinphils 0.2 thou/uL (0.0-0.7); #Lymphocytes 2.7 thou/uL (1.20-3.40); #Monocytes 0.5 thou/uL (0.11-0.59); #Neutrophils 3.3 thou/uL (1.40-6.50); %Basophils 0.5 % (0.0-1.0); %Eosinophils 2.9 % (0.0-10.0); %Lymphocytes 40.4 % (21.0-51.0); %Neutrophils 48.2 % (42.0-75.0); Hemoglobin 12.5 g/dL (12.0-16.0); Mean Corpuscular HGB CONC 36.4 g/dL (32.0-36.0); Mean Corpuscular Hemoglobin 38.2 pg (27.0-31.0); Mean Platelet Volume 6.7 fL (7.4-10.4); Platelet Count 229 10x3/uL (130-400); RBC Distribution Width 10.7 % (11.5-14.5); Red Blood Cell (RBC) Count 3.27 mill/uL (4.20-5.40); White Blood Cell (WBC) Count 6.8 10x3/uL (4.8-10.8)
[2022-09-15 03:12] LABS: Anion Gap 12 mmol/L (10-20); BUN (Urea Nitrogen) 22 mg/dL (9.8-20.1); Calc. Creatinine Clearance 54 mL/min (70-130); Calcium 9.6 mg/dL (7.8-10.44); Carbon Dioxide 24 mmol/L (23-31); Chloride 108 mmol/L (98-107); Estimated GFR 51; Glucose 89 mg/dL (80-115); Potassium 4.4 mmol/L (3.5-5.1); Sodium 140 mmol/L (136-145); Troponin I Less than 0.010 ng/mL (< 0.028)
[2022-09-15 03:25] LABS: Hemoglobin A1c 4.9 % (4.0-6.0)
[2022-09-15 03:31] LABS: Thyroid Stimulating Hormone 1.8849 uIU/mL (0.35-4.94)
[2022-09-15] MEDS ORDERED: Levothyroxine Sodium 100 MCG TAB PO SCH (06:00)
[2022-09-15 06:51] LABS: Troponin I Less than 0.010 ng/mL (< 0.028)
[2022-09-15 08:20] VITALS: BP 95/47; TEMP 98.1
[2022-09-15 08:21] VITALS: BMI 25.4
[2022-09-15] MEDS ORDERED: Clopidogrel Bisulfate 75 MG TAB PO SCH (09:00)
[2022-09-15] MEDS ORDERED: Aspirin 81 mg Enteric Coated Tablet PO SCH (09:00)
[2022-09-15] MEDS ORDERED: Midodrine HCl 5 MG TAB PO SCH (09:00)
[2022-09-15] MEDS ORDERED: Escitalopram Oxalate 10 mg Tablet PO SCH (09:00)
[2022-09-15] MEDS ORDERED: Bupropion 150 MG XL TAB PO SCH (21:00)
[2022-09-15] MEDS ORDERED: Atorvastatin Calcium 40 MG TAB PO SCH (21:00)
[2022-09-15] MEDS ORDERED: Divalproex Sodium DR 500 MG TAB PO SCH (21:00)
== END 2022-09-15 10:39 | disposition home or self-care (01) ==
LOC: ERS 21:57 → ERHOLD 09-15 00:56
PROVIDERS: ADMIT Internal Medicine; ATTEND Internal Medicine
DX: R07.89 Other chest pain (principal); I95.0 Idiopathic hypotension; R42 Dizziness and giddiness; F31.9 Bipolar disorder, unspecified; E78.2 Mixed hyperlipidemia; I10 Essential (primary) hypertension; E03.9 Hypothyroidism, unspecified; J44.9 Chronic obstructive pulmonary disease, unspecified; G47.30 Sleep apnea, unspecified; R20.2 Paresthesia of skin; Z86.73 Personal history of transient ischemic attack (TIA), and cerebral infarction without residual deficits; Z87.891 Personal history of nicotine dependence; Z79.02 Long term (current) use of antithrombotics/antiplatelets; Z79.82 Long term (current) use of aspirin; Z79.890 Hormone replacement therapy; Z79.899 Other long term (current) drug therapy; Z88.8 Allergy status to other drugs, medicaments and biological substances
CPT/HCPCS: 70450; 71045; 80048; 80053; 82607; 82962; 83036; 84443; 84484 ×3; 85025 ×2; 93005; G0378; 36415; 36416; J1650; J7050

== ENCOUNTER 2023-07-18 08:36 | Emergency (ER) | payer OTHER, MEDICAID ==
[2023-07-18 09:10] LABS: Hematocrit 35.3 % (36.0-47.0); Hemoglobin 11.6 g/dL (12.0-16.0); Mean Corpuscular HGB CONC 32.9 g/dL (32.0-36.0); Mean Corpuscular Hemoglobin 33.8 pg (27.0-31.0); Mean Corpuscular Volume 102.9 fl (78.0-98.0); Red Blood Cell (RBC) Count 3.43 mill/uL (4.20-5.40); White Blood Cell (WBC) Count 9.2 10x3/uL (4.8-10.8)
[2023-07-18 09:11] LABS: #Eosinphils 0.1 thou/uL (0.0-0.7); #Monocytes 0.7 thou/uL (0.11-0.59); #Neutrophils 7.1 thou/uL (1.40-6.50); %Basophils 0.4 % (0.0-1.0); %Eosinophils 1.4 % (0.0-10.0); %Neutrophils 76.9 % (42.0-75.0); Mean Platelet Volume 9.2 fL (7.4-10.4); Platelet Count 216 10x3/uL (130-400); RBC Distribution Width 12.7 % (11.5-14.5)
[2023-07-18 09:27] LABS: Bacteria/HPF 2+ HPF (None Seen); Bilirubin Negative (Negative); Blood, Urine 2+ (Negative); CAUTI Indications for Culture Dysuria,urgency,freq; Clarity Extra Turbid (Clear); Glucose, Urine (Dipstick) Normal (Negative); Ketone, Urine Negative (Negative); Leukocyte 500 Leu/uL (Negative); Nitrite 1+ (Negative); Protein, Urine (Dipstick) 50 mg/dL (Neg-Trace); RBC/HPF 21-50 HPF (0-3); Squamous Epithelial 0-3 HPF (0-3); Urobilinogen Normal mg/dL (Less than 2); WBC/HPF Greater than 50 HPF (0-3)
[2023-07-18 09:32] LABS: ALT (SGPT) 10 U/L (8-55); AST (SGOT) 16 U/L (5-34); Albumin 3.9 g/dL (3.4-4.8); Alkaline Phosphatase 50 U/L (40-110); Anion Gap 13 mmol/L (10-20); BUN (Urea Nitrogen) 16 mg/dL (9.8-20.1); Bilirubin, Total 0.7 mg/dL (0.2-1.2); Calc. Creatinine Clearance 0 mL/min (70-130); Calcium 9.2 mg/dL (7.8-10.44); Carbon Dioxide 26 mmol/L (23-31); Chloride 105 mmol/L (98-107); Estimated GFR 56; Globulin 2.4 g/dL (2.4-3.5); Glucose 83 mg/dL (80-115); Lipase 7 U/L (8-78); Potassium 3.9 mmol/L (3.5-5.1); Protein, Total 6.3 g/dL (5.8-8.1); Sodium 140 mmol/L (136-145)
[2023-07-18 09:38] LABS: Urine Culture Reflex Yes Yes
[2023-07-18 09:43] LABS: Troponin I Less than 0.010 ng/mL (< 0.028)
[2023-07-18] MEDS ORDERED: Dicyclomine 20 MG TAB ONE (10:03)
[2023-07-18] MEDS ORDERED: Acetaminophen 500 MG TAB ONE (10:03)
[2023-07-18] MEDS ORDERED: Sodium Chloride 0.9% 100 ML ONE (10:09)
[2023-07-18] MEDS ORDERED: cefTRIAXone (ROCEPHIN) 2 GM VIAL ONE (10:09)
[2023-07-18] MEDS ORDERED: Iopamidol-370 76% 500 ML MDV (1 ML CHARGE) ONE (11:15)
== END 2023-07-18 11:54 | disposition home or self-care (01) ==
LOC: ERS 08:36
DX: N39.0 Urinary tract infection, site not specified (principal); R19.7 Diarrhea, unspecified; E03.9 Hypothyroidism, unspecified; J44.9 Chronic obstructive pulmonary disease, unspecified; I95.89 Other hypotension; E78.00 Pure hypercholesterolemia, unspecified; Z87.891 Personal history of nicotine dependence; Z79.899 Other long term (current) drug therapy
CPT/HCPCS: 36415; 74177; 80053; 81001; 83690; 84484; 85025; 87077; 87086; 87186; 93005; 96361; 96365; J0696; J3490; Q9967

== ENCOUNTER 2023-10-11 18:13 | Emergency (ER) | payer OTHER, MEDICAID ==
[2023-10-11 18:49] LABS: #Basophils 0.1 thou/uL (0.0-0.2); #Eosinphils 0.2 thou/uL (0.0-0.7); #Monocytes 0.6 thou/uL (0.11-0.59); #Neutrophils 4.4 thou/uL (1.40-6.50); %Basophils 0.7 % (0.0-1.0); %Lymphocytes 27.3 % (21.0-51.0); %Neutrophils 60.7 % (42.0-75.0); Hematocrit 35.2 % (36.0-47.0); Hemoglobin 12.1 g/dL (12.0-16.0); Mean Corpuscular HGB CONC 34.4 g/dL (32.0-36.0); Mean Corpuscular Hemoglobin 34.6 pg (27.0-31.0); Mean Corpuscular Volume 100.6 fl (78.0-98.0); Mean Platelet Volume 9.1 fL (7.4-10.4); Platelet Count 211 10x3/uL (130-400); RBC Distribution Width 12.1 % (11.5-14.5); White Blood Cell (WBC) Count 7.2 10x3/uL (4.8-10.8)
[2023-10-11 19:22] LABS: Troponin I 0.013 ng/mL (< 0.028)
[2023-10-11 19:59] LABS: Albumin 4.1 g/dL (3.4-4.8)
[2023-10-11 20:00] LABS: Chloride 107 mmol/L (98-107); Potassium 5.1 mmol/L (3.5-5.1); Sodium 141 mmol/L (136-145)
[2023-10-11 20:01] LABS: Calcium 10.4 mg/dL (7.8-10.44); Glucose 76 mg/dL (80-115)
[2023-10-11 20:02] LABS: Globulin 2.3 g/dL (2.4-3.5); Protein, Total 6.4 g/dL (5.8-8.1)
[2023-10-11 20:03] LABS: Anion Gap 13 mmol/L (10-20); Bilirubin, Total 0.3 mg/dL (0.2-1.2); Carbon Dioxide 26 mmol/L (23-31)
[2023-10-11 20:04] LABS: Alkaline Phosphatase 49 U/L (40-110)
[2023-10-11 20:05] LABS: BUN (Urea Nitrogen) 28 mg/dL (9.8-20.1); Calc. Creatinine Clearance 0 mL/min (70-130); Estimated GFR 45
[2023-10-11 20:06] LABS: AST (SGOT) 19 U/L (5-34)
[2023-10-11 20:07] LABS: ALT (SGPT) 15 U/L (8-55)
== END 2023-10-11 22:35 | disposition home or self-care (01) ==
LOC: ERS 18:13
DX: R07.9 Chest pain, unspecified (principal); E03.9 Hypothyroidism, unspecified; E78.5 Hyperlipidemia, unspecified; I95.89 Other hypotension; I20.9 Angina pectoris, unspecified; Z86.73 Personal history of transient ischemic attack (TIA), and cerebral infarction without residual deficits; Z87.891 Personal history of nicotine dependence; Z55.6 Problems related to health literacy; Z79.899 Other long term (current) drug therapy; Z79.82 Long term (current) use of aspirin
CPT/HCPCS: 36415; 71045; 80053; 84484; 85025; 93005

== ENCOUNTER 2024-01-29 20:10 | Emergency (ER) | payer OTHER, MEDICAID ==
[~2024-01-29 20:10] MED LIST changes: -ISOVUE-370 76%-LOCM 1 ML ONE; +Iopamidol-370 76% 500 ML MDV (1 ML CHARGE) ONE
[2024-01-29] MEDS ORDERED: Acetaminophen 500 MG TAB ONE (20:57)
[2024-01-29 21:43] LABS: Bacteria/HPF 3+ HPF (None Seen); Bilirubin Negative (Negative); Blood, Urine Trace (Negative); CAUTI Indications for Culture Dysuria,urgency,freq; Clarity Turbid (Clear); Glucose, Urine (Dipstick) Normal (Negative); Ketone, Urine Negative (Negative); Leukocyte 500 Leu/uL (Negative); Nitrite 2+ (Negative); Protein, Urine (Dipstick) 20 mg/dL (Neg-Trace); RBC/HPF 0-3 HPF (0-3); Specific Gravity, Urine 1.012 (1.002-1.036); Transitional Epithelial 0-3 HPF (None Seen); Urobilinogen Normal mg/dL (Less than 2); WBC/HPF Greater than 50 HPF (0-3); pH, Urine 5.5 (5.0-9.0)
[2024-01-29 21:45] LABS: Urine Culture Reflex Yes Yes
[2024-01-29] MEDS ORDERED: Sodium Chloride 0.9% 100 ML ONE (22:15)
[2024-01-29] MEDS ORDERED: cefTRIAXone (ROCEPHIN) 1 GM VIAL ONE (22:16)
[2024-01-29 23:05] LABS: #Basophils 0.03 10x3/uL (0.0-0.2); %Basophils 0.3 % (0.0-1.0); %Eosinophils 0.9 % (0.0-10.0); %Lymphocytes 7.2 % (21.0-51.0); %Monocytes 7.8 % (0.0-10.0); %Neutrophils 83.5 % (42.0-75.0); Hematocrit 34.4 % (36.0-47.0); Hemoglobin 11.6 g/dL (12.0-16.0); Mean Corpuscular HGB CONC 33.7 g/dL (32.0-36.0); Mean Corpuscular Hemoglobin 34.2 pg (27.0-31.0); Mean Corpuscular Volume 101.5 fL (78.0-98.0); Mean Platelet Volume 9.5 fL (7.4-10.4); Platelet Count 216 10x3/uL (130-400); Red Blood Cell (RBC) Count 3.39 mill/uL (4.20-5.40)
[2024-01-29 23:51] LABS: ALT (SGPT) 6 U/L (8-55); AST (SGOT) 13 U/L (5-34); Alkaline Phosphatase 57 U/L (40-110); Anion Gap 13 mmol/L (10-20); BUN (Urea Nitrogen) 23 mg/dL (9.8-20.1); Bilirubin, Total 0.5 mg/dL (0.2-1.2); Calc. Creatinine Clearance 0 mL/min (70-130); Calcium 9.1 mg/dL (7.8-10.44); Carbon Dioxide 20 mmol/L (23-31); Chloride 108 mmol/L (98-107); Estimated GFR 46; Globulin 2.8 g/dL (2.4-3.5); Glucose 124 mg/dL (80-115); Magnesium 1.4 mg/dL (1.6-2.6); Potassium 4.2 mmol/L (3.5-5.1); Protein, Total 5.8 g/dL (5.8-8.1); Sodium 137 mmol/L (136-145)
[2024-01-30 00:03] LABS: Lactic Acid 1.1 mmol/L (0.5-2.2)
[2024-01-30] MEDS ORDERED: Ibuprofen 200 MG TAB ONE (00:34)
[2024-01-30] MEDS ORDERED: Magnesium 2 GM/50 ML BAG (IN WATER) ONE (00:34)
== END 2024-01-30 01:58 | disposition home or self-care (01) ==
LOC: ERS 20:10
DX: N10 Acute pyelonephritis (principal); E83.42 Hypomagnesemia; N17.9 Acute kidney failure, unspecified; I10 Essential (primary) hypertension; E03.9 Hypothyroidism, unspecified; Z86.73 Personal history of transient ischemic attack (TIA), and cerebral infarction without residual deficits; Z55.6 Problems related to health literacy; Z87.891 Personal history of nicotine dependence
CPT/HCPCS: 36415; 74177; 80053; 81001; 83605; 83735; 85025; 87040; 87077; 87086; 87186; 93005; J0696; J3475; J3490; Q9967

== ENCOUNTER 2024-01-30 09:02 | Inpatient (IN) | payer OTHER, MEDICAID ==
[2024-01-30] MEDS ORDERED: Acetaminophen 325 MG TAB ONE (09:37)
[2024-01-30] MEDS ORDERED: Vancomycin 1 GM/200 ML (FROZEN) BAG ONE (10:15)
[2024-01-30] MEDS ORDERED: cefTRIAXone (ROCEPHIN) 2 GM VIAL ONE (10:15)
[2024-01-30 10:20] LABS: #Basophils Less than 0.03 10x3/uL (0.0-0.2); %Basophils 0.2 % (0.0-1.0); %Eosinophils 0.6 % (0.0-10.0); %Lymphocytes 8.3 % (21.0-51.0); %Monocytes 10.7 % (0.0-10.0); %Neutrophils 79.6 % (42.0-75.0); Hematocrit 31.8 % (36.0-47.0); Hemoglobin 10.9 g/dL (12.0-16.0); Mean Corpuscular HGB CONC 34.3 g/dL (32.0-36.0); Mean Corpuscular Hemoglobin 34.2 pg (27.0-31.0); Mean Corpuscular Volume 99.7 fL (78.0-98.0); Mean Platelet Volume 9.2 fL (7.4-10.4); Platelet Count 185 10x3/uL (130-400); RBC Distribution Width 11.9 % (11.5-14.5); Red Blood Cell (RBC) Count 3.19 mill/uL (4.20-5.40)
[2024-01-30 10:32] LABS: INR-International Normal Ratio 1.1; PTT 39.2 sec (22.9-36.1); Prothrombin Time 13.7 sec (12.0-14.7)
[2024-01-30 10:36] LABS: ALT (SGPT) 7 U/L (8-55); AST (SGOT) 15 U/L (5-34); Alkaline Phosphatase 49 U/L (40-110); Anion Gap 15 mmol/L (10-20); BUN (Urea Nitrogen) 20 mg/dL (9.8-20.1); Bilirubin, Total 0.8 mg/dL (0.2-1.2); Calc. Creatinine Clearance 0 mL/min (70-130); Calcium 9.2 mg/dL (7.8-10.44); Carbon Dioxide 20 mmol/L (23-31); Chloride 105 mmol/L (98-107); Estimated GFR 51; Globulin 2.8 g/dL (2.4-3.5); Glucose 101 mg/dL (80-115); Lipase 15 U/L (8-78); Potassium 4.2 mmol/L (3.5-5.1); Protein, Total 5.8 g/dL (5.8-8.1); Sodium 136 mmol/L (136-145)
[2024-01-30] MEDS ORDERED: Acetaminophen 325 MG TAB PO PRN (12:07)
[2024-01-30] MEDS: Sodium Chloride 0.9% 1,000 ML IV SCH (13:40)
[2024-01-30] MEDS: cefTRIAXone\\ROCEPHIN 2 GM in Sodium Chloride 0.9% 100 ML IVPB SCH (14:03)
[2024-01-30] MEDS: Vancomycin (BATCH) 2 GM in Premix 1 BAG IVPB SCH (14:03)
[2024-01-30 14:04] VITALS: BMI 30.1
[2024-01-30] MEDS: Doxepin HCl 25 MG CAP PO SCH (20:49)
[2024-01-30] MEDS: Ranolazine ER 500 MG TAB PO SCH (20:50)
[2024-01-30] MEDS: Melatonin 3 MG TAB PO SCH (20:50)
[2024-01-30] MEDS: lamoTRIgine 25 MG TAB PO SCH (20:50)
[2024-01-30] MEDS: Atorvastatin Calcium 40 MG TAB PO SCH (20:50)
[2024-01-30] MEDS: Divalproex Sodium DR 500 MG TAB PO SCH (20:50)
[2024-01-30] MEDS: Midodrine HCl 5 MG TAB PO SCH (20:50)
[2024-01-30] MEDS: Famotidine 20 MG TAB PO SCH (20:50)
[2024-01-30] MEDS ORDERED: Vancomycin 1 GM in Sodium Chloride 0.9% 250 ML 300 ML IVPB SCH (21:00)
[2024-01-30] MEDS: ALPRAZolam 0.5 MG TAB PO SCH (22:20)
[2024-01-31 05:33] LABS: #Basophils 0.03 10x3/uL (0.0-0.2); %Basophils 0.4 % (0.0-1.0); %Eosinophils 3.6 % (0.0-10.0); %Lymphocytes 19.2 % (21.0-51.0); %Monocytes 12.1 % (0.0-10.0); %Neutrophils 64.2 % (42.0-75.0); Mean Corpuscular HGB CONC 32.3 g/dL (32.0-36.0); Mean Corpuscular Hemoglobin 34.1 pg (27.0-31.0); Mean Corpuscular Volume 105.8 fL (78.0-98.0); Mean Platelet Volume 9.3 fL (7.4-10.4); Platelet Count 189 10x3/uL (130-400); RBC Distribution Width 12.2 % (11.5-14.5); Red Blood Cell (RBC) Count 2.93 mill/uL (4.20-5.40)
[2024-01-31 05:57] LABS: Anion Gap 9 mmol/L (10-20); BUN (Urea Nitrogen) 16 mg/dL (9.8-20.1); Calc. Creatinine Clearance 77 mL/min (70-130); Calcium 8.9 mg/dL (7.8-10.44); Carbon Dioxide 23 mmol/L (23-31); Chloride 113 mmol/L (98-107); Estimated GFR 66; Glucose 93 mg/dL (80-115); Sodium 141 mmol/L (136-145)
[2024-01-31] MEDS: Levothyroxine Sodium 125 MCG TAB PO SCH (06:06)
[2024-01-31] MEDS: Clopidogrel Bisulfate 75 MG TAB PO SCH (08:29)
[2024-01-31] MEDS: BuPROPion XL 150 MG ER.TAB PO SCH (08:29)
[2024-01-31] MEDS: Aspirin 81 mg Enteric Coated Tablet PO SCH (08:29)
[2024-01-31] MEDS: Enoxaparin 40 MG (0.4 mL) SYRINGE SC SCH (08:30)
[2024-01-31] MEDS: cefTRIAXone\\ROCEPHIN 2 GM in Sodium Chloride 0.9% 100 ML IVPB SCH (08:30)
[2024-01-31] MEDS ORDERED: Vancomycin (BATCH) 1.25 GM in Premix 1 BAG IVPB SCH (10:00)
[2024-01-31] MEDS ORDERED: Ciprofloxacin 500 MG TAB PO SCH (20:00)
[2024-01-31] MEDS: ALPRAZolam 0.5 MG TAB PO SCH (20:02)
[2024-01-31] MEDS: diphenhydrAMINE 25 MG CAP PO SCH (21:02)
[2024-01-31] MEDS: guaiFENesin ER 600 MG TAB PO SCH (21:02)
[2024-02-01] MEDS: cefTRIAXone\\ROCEPHIN 2 GM in Sodium Chloride 0.9% 100 ML IVPB SCH (08:58)
[2024-02-01 11:25] VITALS: BP 125/75; TEMP 98.8
[2024-02-01] MEDS: Ciprofloxacin 500 MG TAB PO SCH (13:18)
== END 2024-02-01 13:56 | disposition home or self-care (01) | DRG 872 ==
LOC: ERS 09:02 → T4-A 13:39 → OBSVTOIN 01-31 17:29
PROVIDERS: ADMIT Internal Medicine; ATTEND Hospitalist
DX: A41.9 Sepsis, unspecified organism (principal); N39.0 Urinary tract infection, site not specified; N10 Acute pyelonephritis; N17.9 Acute kidney failure, unspecified; I95.89 Other hypotension; E03.9 Hypothyroidism, unspecified; F31.9 Bipolar disorder, unspecified; Z88.8 Allergy status to other drugs, medicaments and biological substances; G47.33 Obstructive sleep apnea (adult) (pediatric); Z79.82 Long term (current) use of aspirin; Z79.899 Other long term (current) drug therapy; J44.9 Chronic obstructive pulmonary disease, unspecified; E78.5 Hyperlipidemia, unspecified; Z90.710 Acquired absence of both cervix and uterus; Z90.49 Acquired absence of other specified parts of digestive tract; Z90.89 Acquired absence of other organs; Z87.891 Personal history of nicotine dependence; E83.42 Hypomagnesemia; I10 Essential (primary) hypertension; Z86.73 Personal history of transient ischemic attack (TIA), and cerebral infarction without residual deficits; Z55.6 Problems related to health literacy
CPT/HCPCS: 36415; 74177; 80048; 80053; 80202; 81001; 83605; 83690; 83735; 85025; 85610; 85730; 87040; 87077; 87086; 87186; 93005; 94760; 96361; 96365; 96366; 96367; 96375; 96376; G0378; J0696; J3370; J3370-JW; J3475; J3490; J7050; Q9967

== ENCOUNTER 2024-06-14 10:22 | Emergency (ER) | payer OTHER, MEDICAID ==
[2024-06-14] MEDS ORDERED: Acetaminophen 325 MG TAB ONE (12:48)
== END 2024-06-14 14:04 | disposition home or self-care (01) ==
LOC: ERS 10:22
DX: M53.3 Sacrococcygeal disorders, not elsewhere classified (principal); S50.02XA Contusion of left elbow, initial encounter; M25.561 Pain in right knee; M25.522 Pain in left elbow; E03.9 Hypothyroidism, unspecified; E78.5 Hyperlipidemia, unspecified; I95.89 Other hypotension; W01.198A Fall on same level from slipping, tripping and stumbling with subsequent striking against other object, initial encounter; Y93.89 Activity, other specified; Z86.73 Personal history of transient ischemic attack (TIA), and cerebral infarction without residual deficits; Z79.82 Long term (current) use of aspirin; Z79.899 Other long term (current) drug therapy; Z79.02 Long term (current) use of antithrombotics/antiplatelets
CPT/HCPCS: 70450; 72125; 72220

== ENCOUNTER 2024-09-19 12:50 | Emergency (ER) | payer OTHER, MEDICAID ==
[2024-09-19] MEDS ORDERED: Benzonatate 100 MG CAP PO SCH (13:45)
[2024-09-19] MEDS ORDERED: Benzonatate 100 MG CAP ONE (14:41)
== END 2024-09-19 14:45 | disposition home or self-care (01) ==
LOC: ERS 12:50
DX: J11.1 Influenza due to unidentified influenza virus with other respiratory manifestations (principal); E03.9 Hypothyroidism, unspecified; E78.5 Hyperlipidemia, unspecified; Z86.73 Personal history of transient ischemic attack (TIA), and cerebral infarction without residual deficits; Z79.890 Hormone replacement therapy; Z79.82 Long term (current) use of aspirin; Z79.02 Long term (current) use of antithrombotics/antiplatelets; Z79.899 Other long term (current) drug therapy
CPT/HCPCS: 71045; 87428

== ENCOUNTER 2025-03-25 14:07 | Observation (INO) | payer OTHER ==
[2025-03-25 15:30] LABS: #Basophils 0.04 10x3/uL (0.0-0.2); #Eosinophils 0.22 10x3/uL (0.0-0.7); #Monocytes 0.63 10x3/uL (0.11-0.59); #Neutrophils 3.90 10x3/uL (1.40-6.50); %Basophils 0.6 % (0.0-1.0); %Eosinophils 3.6 % (0.0-10.0); %Lymphocytes 22.1 % (21.0-51.0); %Monocytes 10.2 % (0.0-10.0); %Neutrophils 63.0 % (42.0-75.0); Hematocrit 40.0 % (36.0-47.0); Hemoglobin 13.0 g/dL (12.0-16.0); Mean Corpuscular Hemoglobin 33.2 pg (27.0-31.0); Mean Corpuscular Volume 102.0 fL (78.0-98.0); Platelet Count 254 10x3/uL (130-400); Red Blood Cell (RBC) Count 3.92 mill/uL (4.20-5.40); White Blood Cell (WBC) Count 6.19 10x3/uL (4.8-10.8)
[2025-03-25 15:52] LABS: ALT (SGPT) 19 U/L (Less than 34); AST (SGOT) 35 U/L (11-34); Albumin 4.1 g/dL (3.1-4.5); Alkaline Phosphatase 56 U/L (40-110); Anion Gap 15 mmol/L (10-20); BUN (Urea Nitrogen) 31 mg/dL (9.8-20.1); Bilirubin, Total 0.4 mg/dL (0.3-1.2); Calc. Creatinine Clearance 0 mL/min (70-130); Calcium 10.4 mg/dL (7.8-10.44); Carbon Dioxide 25 mmol/L (23-31); Chloride 105 mmol/L (98-107); Globulin 3.0 g/dL (2.4-3.5); Glucose 83 mg/dL (80-115); Potassium 4.7 mmol/L (3.5-5.1); Sodium 140 mmol/L (136-145)
[2025-03-25 15:55] LABS: Troponin I Less than 0.010 ng/mL (< 0.028)
[2025-03-25] MEDS ORDERED: Milk Of Magnesia 30 ML UDCUP ONE (16:08)
[2025-03-25] MEDS ORDERED: Lidocaine Viscous Sol 2% 15 ml UD Cup ONE (16:10)
[2025-03-25] MEDS ORDERED: Pantoprazole 40 MG DR.TAB ONE (18:48)
[2025-03-25] MEDS ORDERED: Ondansetron PF 4 MG/2 ML Vial IVP PRN (19:40)
[2025-03-25] MEDS ORDERED: Acetaminophen 325 MG TAB PO PRN (19:40)
[2025-03-25 21:26] VITALS: BMI 29.5
[2025-03-25] MEDS ORDERED: Famotidine 20 MG TAB ONE (21:54)
[2025-03-25] MEDS: Famotidine 20 MG TAB PO SCH (21:59)
[2025-03-25 22:10] LABS: Troponin I Less than 0.010 ng/mL (< 0.028)
[2025-03-25 23:26] LABS: Troponin I Less than 0.010 ng/mL (< 0.028)
[2025-03-26 03:50] LABS: #Basophils 0.05 10x3/uL (0.0-0.2); #Eosinophils 0.25 10x3/uL (0.0-0.7); #Monocytes 0.62 10x3/uL (0.11-0.59); #Neutrophils 2.73 10x3/uL (1.40-6.50); %Basophils 0.9 % (0.0-1.0); %Eosinophils 4.7 % (0.0-10.0); %Lymphocytes 30.8 % (21.0-51.0); %Monocytes 11.7 % (0.0-10.0); %Neutrophils 51.5 % (42.0-75.0); Hematocrit 36.2 % (36.0-47.0); Hemoglobin 11.8 g/dL (12.0-16.0); Mean Corpuscular Hemoglobin 33.1 pg (27.0-31.0); Mean Corpuscular Volume 101.7 fL (78.0-98.0); Platelet Count 215 10x3/uL (130-400); Red Blood Cell (RBC) Count 3.56 mill/uL (4.20-5.40); White Blood Cell (WBC) Count 5.30 10x3/uL (4.8-10.8)
[2025-03-26 04:03] LABS: Anion Gap 14 mmol/L (10-20); BUN (Urea Nitrogen) 31 mg/dL (9.8-20.1); Calc. Creatinine Clearance 45 mL/min (70-130); Calcium 9.4 mg/dL (7.8-10.44); Carbon Dioxide 24 mmol/L (23-31); Chloride 108 mmol/L (98-107); Glucose 113 mg/dL (80-115); Potassium 4.6 mmol/L (3.5-5.1); Sodium 141 mmol/L (136-145)
[2025-03-26] MEDS: Aspirin 81 mg Enteric Coated Tablet PO SCH (09:40)
[2025-03-26] MEDS: BuPROPion XL 150 MG ER.TAB PO SCH (09:40)
[2025-03-26] MEDS: Divalproex Sodium 250 MG ER.TAB PO SCH (09:40)
[2025-03-26] MEDS: lamoTRIgine 25 MG TAB PO SCH (09:41)
[2025-03-26] MEDS: Enoxaparin 40 MG (0.4 mL) SYRINGE SC SCH (09:41)
[2025-03-26] MEDS ORDERED: Acetaminophen 500 MG TAB PO PRN (11:47)
[2025-03-26] MEDS ORDERED: Nitroglycerin 0.4 MG TAB (25 Tab Bottle) SL PRN (11:47)
[2025-03-26] MEDS ORDERED: lamoTRIgine 25 MG TAB PO SCH (21:00)
[2025-03-26] MEDS ORDERED: Non-Formulary Item 1 EACH (Divalproex [Depakote] 125 MG Tab) PO SCH (21:00)
[2025-03-26] MEDS ORDERED: Famotidine 20 MG TAB PO SCH (21:00)
[2025-03-26] MEDS ORDERED: Non-Formulary Item 1 EACH (Atorvastatin Calcium [Lipitor] 80 MG Tablet) PO SCH (21:00)
[2025-03-27 04:04] LABS: #Basophils 0.03 10x3/uL (0.0-0.2); #Eosinophils 0.30 10x3/uL (0.0-0.7); #Monocytes 0.69 10x3/uL (0.11-0.59); #Neutrophils 2.83 10x3/uL (1.40-6.50); %Basophils 0.5 % (0.0-1.0); %Eosinophils 5.3 % (0.0-10.0); %Lymphocytes 32.2 % (21.0-51.0); %Monocytes 12.1 % (0.0-10.0); %Neutrophils 49.5 % (42.0-75.0); Hematocrit 34.2 % (36.0-47.0); Hemoglobin 11.2 g/dL (12.0-16.0); Mean Corpuscular Hemoglobin 33.5 pg (27.0-31.0); Mean Corpuscular Volume 102.4 fL (78.0-98.0); Platelet Count 208 10x3/uL (130-400); Red Blood Cell (RBC) Count 3.34 mill/uL (4.20-5.40); White Blood Cell (WBC) Count 5.71 10x3/uL (4.8-10.8)
[2025-03-27 04:19] LABS: Anion Gap 14 mmol/L (10-20); BUN (Urea Nitrogen) 23 mg/dL (9.8-20.1); Calc. Creatinine Clearance 52 mL/min (70-130); Calcium 8.9 mg/dL (7.8-10.44); Carbon Dioxide 24 mmol/L (23-31); Chloride 111 mmol/L (98-107); Glucose 92 mg/dL (80-115); Potassium 4.8 mmol/L (3.5-5.1); Sodium 144 mmol/L (136-145)
[2025-03-27 07:48] VITALS: BP 137/83; TEMP 98
[2025-03-27] MEDS: Mag-Al 1200 mg/1200 mg/30 ML UDCUP PO SCH (08:43)
[2025-03-27] MEDS: Cyanocobalamin (Vitamin B-12) 1,000 MCG TAB PO SCH (08:44)
[2025-03-27] MEDS: Pantoprazole 40 MG DR.TAB PO SCH (08:44)
[2025-03-27] MEDS: Cholecalciferol 1,000 UNITS (25 MCG) TAB PO SCH (08:44)
[2025-03-27] MEDS: Folic Acid 1 MG TAB PO SCH (08:44)
[2025-03-27] MEDS ORDERED: BuPROPion XL 150 MG ER.TAB PO SCH (09:00)
[2025-03-27] MEDS ORDERED: Aspirin 81 mg Enteric Coated Tablet PO SCH (09:00)
== END 2025-03-27 13:50 | disposition home or self-care (01) ==
LOC: ERS 14:07 → ERHOLD 19:40 → PCU 03-26 00:57
PROVIDERS: ADMIT Internal Medicine; ATTEND Hospitalist
DX: R42 Dizziness and giddiness (principal); I95.89 Other hypotension; E03.9 Hypothyroidism, unspecified; E78.5 Hyperlipidemia, unspecified; F31.9 Bipolar disorder, unspecified; K21.9 Gastro-esophageal reflux disease without esophagitis; Z86.73 Personal history of transient ischemic attack (TIA), and cerebral infarction without residual deficits; Z87.891 Personal history of nicotine dependence; Z90.49 Acquired absence of other specified parts of digestive tract; Z90.89 Acquired absence of other organs; Z88.8 Allergy status to other drugs, medicaments and biological substances; Z79.890 Hormone replacement therapy; Z79.82 Long term (current) use of aspirin; Z79.899 Other long term (current) drug therapy
CPT/HCPCS: 70496; 70498; 70553; 71045; 76376; 80048 ×2; 80053; 83880; 84484 ×2; 85025 ×3; 93005; 99285; J1650 ×2; J7030 ×3; 36415; 96372; G0378; Q9967

== ENCOUNTER 2025-04-04 18:21 | Emergency (ER) | payer OTHER ==
[2025-04-04] MEDS ORDERED: Acetaminophen 500 MG TAB ONE (20:08)
== END 2025-04-04 21:00 | disposition home or self-care (01) ==
LOC: ERS 18:21
DX: S00.03XA Contusion of scalp, initial encounter (principal); E03.9 Hypothyroidism, unspecified; E78.5 Hyperlipidemia, unspecified; Z86.73 Personal history of transient ischemic attack (TIA), and cerebral infarction without residual deficits; Z79.82 Long term (current) use of aspirin; Z79.899 Other long term (current) drug therapy; W18.30XA Fall on same level, unspecified, initial encounter; Y93.89 Activity, other specified; Y92.59 Other trade areas as the place of occurrence of the external cause
CPT/HCPCS: 70450; 72125; 72131

== ENCOUNTER 2025-05-14 12:33 | Emergency (ER) | payer OTHER, MEDICAID ==
[2025-05-14 13:51] LABS: #Basophils 0.04 10x3/uL (0.0-0.2); #Eosinophils 0.16 10x3/uL (0.0-0.7); #Monocytes 0.68 10x3/uL (0.11-0.59); #Neutrophils 3.16 10x3/uL (1.40-6.50); %Basophils 0.7 % (0.0-1.0); %Eosinophils 2.9 % (0.0-10.0); %Lymphocytes 25.3 % (21.0-51.0); %Monocytes 12.5 % (0.0-10.0); %Neutrophils 57.9 % (42.0-75.0); Hematocrit 35.5 % (36.0-47.0); Hemoglobin 11.9 g/dL (12.0-16.0); Mean Corpuscular Hemoglobin 34.2 pg (27.0-31.0); Mean Corpuscular Volume 102.0 fL (78.0-98.0); Platelet Count 202 10x3/uL (130-400); Red Blood Cell (RBC) Count 3.48 mill/uL (4.20-5.40); White Blood Cell (WBC) Count 5.46 10x3/uL (4.8-10.8)
[2025-05-14 14:05] LABS: INR-International Normal Ratio 1.1; PTT 33.2 sec (22.9-36.1); Prothrombin Time 14.1 sec (12.0-14.7)
[2025-05-14 14:16] LABS: ALT (SGPT) 14 U/L (Less than 34); AST (SGOT) 23 U/L (11-34); Albumin 3.5 g/dL (3.1-4.5); Alkaline Phosphatase 52 U/L (40-110); Anion Gap 15 mmol/L (10-20); BUN (Urea Nitrogen) 25 mg/dL (9.8-20.1); Bilirubin, Total 0.5 mg/dL (0.3-1.2); Calc. Creatinine Clearance 0 mL/min (70-130); Calcium 9.4 mg/dL (7.8-10.44); Carbon Dioxide 25 mmol/L (23-31); Chloride 105 mmol/L (98-107); Globulin 3.0 g/dL (2.4-3.5); Glucose 82 mg/dL (80-115); Potassium 5.3 mmol/L (3.5-5.1); Sodium 140 mmol/L (136-145)
[2025-05-14 14:17] LABS: Magnesium 2.0 mg/dL (1.6-2.6)
[2025-05-14 14:18] LABS: Acetaminophen Less than 10 mcg/mL (Less than 10); Salicylate Less than 8.0 mg/dL (Less than 8.0)
[2025-05-14 17:29] LABS: Cocaine Metabolite Screen Negative (Negative); THC/Cannabinoid Screen Negative (Negative); Tricyclic Screen PRELIM POSITIVE (Negative)
[2025-05-14 17:30] LABS: CAUTI Indications for Culture Pelvic or flank pain; Glucose, Urine (Dipstick) Normal (Negative); Leukocyte Negative Leu/uL (Negative); Protein, Urine (Dipstick) Negative (Neg-Trace); RBC/HPF 0-3 HPF (0-3); Specific Gravity, Urine 1.008 (1.002-1.036)
[2025-05-14 17:34] LABS: Bacteria/HPF 1+ HPF (None Seen)
[2025-05-14 17:37] LABS: Urine Culture Reflex No No
== END 2025-05-14 18:00 | disposition home or self-care (01) ==
LOC: ERS 12:33
DX: R42 Dizziness and giddiness (principal); Z86.73 Personal history of transient ischemic attack (TIA), and cerebral infarction without residual deficits; W19.XXXA Unspecified fall, initial encounter
CPT/HCPCS: 70450; 71045; 80053; 80306; 80307; 81001; 83605; 83735; 84484; 85025; 85610; 85730; 93005

== ENCOUNTER 2025-06-07 07:13 | Emergency (ER) | payer OTHER, MEDICAID ==
[2025-06-07] MEDS ORDERED: predniSONE 20 MG TAB ONE (07:35)
== END 2025-06-07 07:44 | disposition home or self-care (01) ==
LOC: ERS 07:13
DX: M54.31 Sciatica, right side (principal); Z86.73 Personal history of transient ischemic attack (TIA), and cerebral infarction without residual deficits
CPT/HCPCS: 99282; J7512

== ENCOUNTER 2025-06-13 20:42 | Emergency (ER) | payer OTHER, MEDICAID ==
[2025-06-13 23:39] LABS: #Basophils 0.03 10x3/uL (0.0-0.2); #Eosinophils 0.03 10x3/uL (0.0-0.7); #Monocytes 0.54 10x3/uL (0.11-0.59); #Neutrophils 4.71 10x3/uL (1.40-6.50); %Basophils 0.4 % (0.0-1.0); %Eosinophils 0.4 % (0.0-10.0); %Lymphocytes 28.1 % (21.0-51.0); %Monocytes 7.3 % (0.0-10.0); %Neutrophils 63.4 % (42.0-75.0); Hematocrit 37.2 % (36.0-47.0); Hemoglobin 12.0 g/dL (12.0-16.0); Mean Corpuscular Hemoglobin 33.9 pg (27.0-31.0); Mean Corpuscular Volume 105.1 fL (78.0-98.0); Platelet Count 217 10x3/uL (130-400); Red Blood Cell (RBC) Count 3.54 mill/uL (4.20-5.40); White Blood Cell (WBC) Count 7.43 10x3/uL (4.8-10.8)
[2025-06-14 00:08] LABS: ALT (SGPT) 18 U/L (Less than 34); AST (SGOT) 18 U/L (11-34); Albumin 3.9 g/dL (3.1-4.5); Alkaline Phosphatase 53 U/L (40-110); Anion Gap 13 mmol/L (10-20); BUN (Urea Nitrogen) 28 mg/dL (9.8-20.1); Bilirubin, Total 0.3 mg/dL (0.3-1.2); Calc. Creatinine Clearance 0 mL/min (70-130); Calcium 9.8 mg/dL (7.8-10.44); Carbon Dioxide 25 mmol/L (23-31); Chloride 106 mmol/L (98-107); Globulin 2.7 g/dL (2.4-3.5); Glucose 74 mg/dL (80-115); Potassium 4.3 mmol/L (3.5-5.1); Sodium 140 mmol/L (136-145)
== END 2025-06-14 02:12 | disposition home or self-care (01) ==
LOC: ERS 20:42
DX: M54.2 Cervicalgia (principal); R07.9 Chest pain, unspecified; E78.5 Hyperlipidemia, unspecified; E03.9 Hypothyroidism, unspecified; Z86.73 Personal history of transient ischemic attack (TIA), and cerebral infarction without residual deficits; Z79.82 Long term (current) use of aspirin; Z79.899 Other long term (current) drug therapy; Z79.890 Hormone replacement therapy
CPT/HCPCS: 71045; 80053; 84484; 85025; 93005

== ENCOUNTER 2025-08-22 12:16 | Observation (INO) | payer OTHER ==
[2025-08-22 12:37] LABS: #Basophils 0.04 10x3/uL (0.0-0.2); #Eosinophils 0.27 10x3/uL (0.0-0.7); #Monocytes 0.40 10x3/uL (0.11-0.59); #Neutrophils 2.96 10x3/uL (1.40-6.50); %Basophils 0.8 % (0.0-1.0); %Eosinophils 5.3 % (0.0-10.0); %Lymphocytes 27.5 % (21.0-51.0); %Monocytes 7.9 % (0.0-10.0); %Neutrophils 58.1 % (42.0-75.0); Hematocrit 36.3 % (36.0-47.0); Hemoglobin 11.7 g/dL (12.0-16.0); Mean Corpuscular Hemoglobin 34.0 pg (27.0-31.0); Mean Corpuscular Volume 105.5 fL (78.0-98.0); Platelet Count 199 10x3/uL (130-400); Red Blood Cell (RBC) Count 3.44 mill/uL (4.20-5.40); White Blood Cell (WBC) Count 5.09 10x3/uL (4.8-10.8)
[2025-08-22 12:52] LABS: INR-International Normal Ratio 1.1; Prothrombin Time 14.0 sec (12.0-14.7)
[2025-08-22 13:15] LABS: ALT (SGPT) 15 U/L (Less than 34); AST (SGOT) 29 U/L (11-34); Albumin 3.9 g/dL (3.1-4.5); Alkaline Phosphatase 59 U/L (40-110); Anion Gap 13 mmol/L (10-20); BUN (Urea Nitrogen) 15 mg/dL (9.8-20.1); Bilirubin, Total 0.4 mg/dL (0.3-1.2); Calc. Creatinine Clearance 0 mL/min (70-130); Calcium 9.5 mg/dL (7.8-10.44); Carbon Dioxide 27 mmol/L (23-31); Chloride 109 mmol/L (98-107); Globulin 2.7 g/dL (2.4-3.5); Glucose 88 mg/dL (80-115); Potassium 4.5 mmol/L (3.5-5.1); Sodium 144 mmol/L (136-145)
[2025-08-22 15:04] LABS: PTT 32.9 sec (22.9-36.1)
[2025-08-22] MEDS ORDERED: Senokot S 8.6-50 MG TAB PO PRN (16:59)
[2025-08-22] MEDS ORDERED: Acetaminophen 325 MG TAB PO PRN (16:59)
[2025-08-22] MEDS ORDERED: Ondansetron PF 4 MG/2 ML Vial IVP PRN (16:59)
[2025-08-22 23:09] VITALS: BMI 30.4
[2025-08-23 05:21] LABS: #Basophils 0.03 10x3/uL (0.0-0.2); #Eosinophils 0.28 10x3/uL (0.0-0.7); #Monocytes 0.48 10x3/uL (0.11-0.59); #Neutrophils 2.61 10x3/uL (1.40-6.50); %Basophils 0.6 % (0.0-1.0); %Eosinophils 5.5 % (0.0-10.0); %Lymphocytes 32.4 % (21.0-51.0); %Monocytes 9.5 % (0.0-10.0); %Neutrophils 51.6 % (42.0-75.0); Hematocrit 33.6 % (36.0-47.0); Hemoglobin 11.0 g/dL (12.0-16.0); Mean Corpuscular Hemoglobin 34.5 pg (27.0-31.0); Mean Corpuscular Volume 105.3 fL (78.0-98.0); Platelet Count 197 10x3/uL (130-400); Red Blood Cell (RBC) Count 3.19 mill/uL (4.20-5.40); White Blood Cell (WBC) Count 5.06 10x3/uL (4.8-10.8)
[2025-08-23 06:02] LABS: Anion Gap 11 mmol/L (10-20); BUN (Urea Nitrogen) 15 mg/dL (9.8-20.1); Calc. Creatinine Clearance 61 mL/min (70-130); Calcium 9.0 mg/dL (7.8-10.44); Carbon Dioxide 25 mmol/L (23-31); Chloride 112 mmol/L (98-107); Glucose 79 mg/dL (80-115); Potassium 4.7 mmol/L (3.5-5.1); Sodium 143 mmol/L (136-145)
[2025-08-23] MEDS: Pantoprazole 40 MG DR.TAB PO SCH (08:49)
[2025-08-23] MEDS: lamoTRIgine 25 MG TAB PO SCH (08:49)
[2025-08-23] MEDS: BuPROPion XL 150 MG ER.TAB PO SCH (08:50)
[2025-08-23] MEDS: Folic Acid 1 MG TAB PO SCH (08:50)
[2025-08-23] MEDS: Aspirin 81 mg Enteric Coated Tablet PO SCH (08:50)
[2025-08-23 12:14] VITALS: BP 119/68; TEMP 98.3
[2025-08-27] MEDS ORDERED: PNEUMOC 20-VAL CONJ-DIP CRM/PF 0.5 ML SYRINGE IM ONE (09:00)
== END 2025-08-23 13:09 | disposition home or self-care (01) ==
LOC: ERS 12:16 → ERHOLD 14:44 → OBS 21:30
PROVIDERS: ADMIT Internal Medicine; ATTEND Family Medicine
DX: R47.81 Slurred speech (principal); R42 Dizziness and giddiness; I12.9 Hypertensive chronic kidney disease with stage 1 through stage 4 chronic kidney disease, or unspecified chronic kidney disease; N18.30 Chronic kidney disease, stage 3 unspecified; E78.5 Hyperlipidemia, unspecified; E03.9 Hypothyroidism, unspecified; F39 Unspecified mood [affective] disorder; K21.9 Gastro-esophageal reflux disease without esophagitis; Z86.73 Personal history of transient ischemic attack (TIA), and cerebral infarction without residual deficits; Z87.891 Personal history of nicotine dependence; Z90.49 Acquired absence of other specified parts of digestive tract; Z90.89 Acquired absence of other organs; Z88.8 Allergy status to other drugs, medicaments and biological substances; Z79.82 Long term (current) use of aspirin; Z79.02 Long term (current) use of antithrombotics/antiplatelets; Z79.899 Other long term (current) drug therapy
CPT/HCPCS: 70450; 70496; 70498; 70551; 71045; 80048; 82962; 84484; 85025; 85610; 85730; 93005; 94760; J7120; 36415; 36416; 80053; 84443; Q9967